=== PATIENT | male | born 1975 | race Two or more races ===

== ENCOUNTER 2020-03-26 11:37 | Outpatient (REF) | payer OTHER, SELFPAY ==
[2020-03-26 12:58] LABS: MANUAL DIFF FLAG NO
[2020-03-26 13:04] LABS: Basophils Percent Auto 0.4 % (0-2); Eosinophils Absolute Auto 0.2 X10*3/uL (0.0-0.4); Eosinophils Percent Auto 2.5 % (0-4); Hemoglobin 15.6 g/dl (14.0-18.0); Imm Gran Abs Auto 0.04 X10*3/uL (0.00-0.03); Imm Gran Pct Auto 0.5 % (0.0-0.4); Lymphocytes Absolute Auto 1.6 X10*3/uL (1.2-4.9); Lymphocytes Percent Auto 21.2 % (20-40); Mean Corpuscular HGB Conc 33.2 g/dl (31.0-36.0); Mean Corpuscular Hemoglobin 30.5 pg (27.0-33.0); Mean Platelet Volume 10.5 fL (9.4-12.4); Monocytes Absolute Auto 0.7 X10*3/uL (0.1-1.2); Monocytes Percent Auto 9.2 % (2-11); Neutrophils Percent Auto 66.2 % (45-73); Platelet Count 194 X10*3/uL (160-400); Red Blood Count 5.11 X10*6/uL (4.60-5.80); Red Cell Distribution Width 11.6 % (11.0-16.0); White Blood Count 7.5 X10*3/uL (4.8-10.8)
[2020-03-26 14:02] LABS: Alanine Aminotransferase 27 U/L (0-40); Albumin Level 4.4 g/dL (3.5-5.0); Alkaline Phosphatase 79 U/L (39-117); Anion Gap 9 (12-20); Aspartate Amino Transferase 19 U/L (5-37); Bilirubin Total 0.6 mg/dL (0.0-1.0); Blood Urea Nitrogen 16 mg/dL (9-16); Calcium 8.9 mg/dL (8.4-10.2); Carbon Dioxide 31 mmol/L (22-29); Chloride 103 mmol/L (96-108); Cholesterol 150 mg/dL; Estimated Glomerular Filt Rate 47; Glucose Fasting 88 mg/dL (60-99); HDL Cholesterol 46 mg/dL; LDL Cholesterol Calculated 92 mg/dl; Potassium 4.6 mmol/l (3.3-5.1); Sodium 138 mmol/L (135-145); Total Protein 6.6 g/dL (6.5-8.0); Triglycerides 60 mg/dL
[2020-03-26 14:10] LABS: Estimated Average Glucose 111 mg/dL; Hemoglobin A1c % 5.5 %
[2020-03-26 14:14] LABS: TSH reflex Free T4 1.12 mIU/mL (0.32-4.0); Vitamin D 25-OH Total 28.1 ng/mL (>30)
== END 2020-03-26 11:38 | disposition home or self-care (01) ==
LOC: HO.LAB 11:37
PROVIDERS: PCP Internal Medicine; Visit Provider Internal Medicine
DX: I10 Essential (primary) hypertension (principal); E78.5 Hyperlipidemia, unspecified; R73.01 Impaired fasting glucose; G43.909 Migraine, unspecified, not intractable, without status migrainosus; E55.9 Vitamin D deficiency, unspecified; E04.1 Nontoxic single thyroid nodule
CPT/HCPCS: 36415; 80053; 80061; 82306; 83036; 84443; 85025

== ENCOUNTER 2020-05-20 11:31 | Outpatient (REF) | payer OTHER, SELFPAY | END 2020-05-20 11:32 | disposition home or self-care (01) | LOC: HO.LAB 11:31 | PROVIDERS: Visit Provider Internal Medicine | DX: Z20.822 Contact with and (suspected) exposure to COVID-19 (principal) | CPT/HCPCS: 36415; C9803; U0003; U0005 ==

== ENCOUNTER 2020-05-30 12:54 | Outpatient (REF) | payer OTHER, SELFPAY | END 2020-05-30 12:55 | disposition home or self-care (01) | LOC: HO.LAB 12:54 | PROVIDERS: Visit Provider Internal Medicine | DX: Z20.822 Contact with and (suspected) exposure to COVID-19 (principal) | CPT/HCPCS: 36415; C9803; U0003; U0005 ==

== ENCOUNTER 2020-06-16 13:10 | Outpatient (REF) | payer OTHER, SELFPAY ==
[2020-06-16 14:51] LABS: MANUAL DIFF FLAG NO
[2020-06-16 15:03] LABS: Basophils Percent Auto 0.4 % (0-2); Eosinophils Absolute Auto 0.1 X10*3/uL (0.0-0.4); Eosinophils Percent Auto 1.7 % (0-4); Hematocrit 45.6 % (42-52); Hemoglobin 15.4 g/dl (14.0-18.0); Imm Gran Abs Auto 0.05 X10*3/uL (0.00-0.03); Imm Gran Pct Auto 0.6 % (0.0-0.4); Lymphocytes Absolute Auto 1.4 X10*3/uL (1.2-4.9); Mean Corpuscular HGB Conc 33.8 g/dl (31.0-36.0); Mean Corpuscular Hemoglobin 30.9 pg (27.0-33.0); Mean Corpuscular Volume 91.4 fL (80-98); Mean Platelet Volume 10.5 fL (9.4-12.4); Monocytes Absolute Auto 0.8 X10*3/uL (0.1-1.2); Monocytes Percent Auto 9.7 % (2-11); Neutrophils Absolute Auto 5.8 X10*3/uL (2.0-8.3); Neutrophils Percent Auto 70.6 % (45-73); Platelet Count 219 X10*3/uL (160-400); Red Blood Count 4.99 X10*6/uL (4.60-5.80); Red Cell Distribution Width 11.9 % (11.0-16.0); White Blood Count 8.3 X10*3/uL (4.8-10.8)
[2020-06-16 15:16] LABS: Glucose Urine UA NEG (NEG); Leukocyte Esterase Urine NEG (NEG); Nitrite Urine NEG (NEG); Specific Gravity - Urine 1.025 (1.005-1.025); Urine Blood NEG (NEG); Urine Ketones NEG (NEG); Urine Protein NEG (NEG-TRACE)
[2020-06-16 15:20] LABS: Appearance Urine CLEAR; Color Urine YELLOW
[2020-06-16 15:35] LABS: Alanine Aminotransferase 18 U/L (0-40); Albumin Level 4.4 g/dL (3.5-5.0); Alkaline Phosphatase 95 U/L (39-117); Anion Gap 14 (12-20); Aspartate Amino Transferase 16 U/L (5-37); Bilirubin Total 0.6 mg/dL (0.0-1.0); Blood Urea Nitrogen 12 mg/dL (9-16); Carbon Dioxide 28 mmol/L (22-29); Chloride 103 mmol/L (96-108); Cholesterol 162 mg/dL; Estimated Glomerular Filt Rate > 60; Glucose Fasting 97 mg/dL (60-99); HDL Cholesterol 54 mg/dL; LDL Cholesterol Calculated 90 mg/dl; Sodium 140 mmol/L (135-145); Total Protein 7.1 g/dL (6.5-8.0); Triglycerides 94 mg/dL
[2020-06-16 15:59] LABS: Free T4 (Free Thyroxine) 0.84 ng/dL (0.71-1.85); Thyroid Stimulating Hormone 1.07 uIU/mL (0.32-4.0); Vitamin D 25-OH Total 32.9 ng/mL (>30)
== END 2020-06-16 13:11 | disposition home or self-care (01) ==
LOC: HO.LAB 13:10
PROVIDERS: PCP Internal Medicine; Visit Provider Internal Medicine
DX: I10 Essential (primary) hypertension (principal); E78.00 Pure hypercholesterolemia, unspecified; E04.1 Nontoxic single thyroid nodule; E66.3 Overweight; E55.9 Vitamin D deficiency, unspecified
CPT/HCPCS: 36415; 80053; 80061; 81003; 82306; 84439; 84443; 85025

== ENCOUNTER 2020-09-01 09:30 | Outpatient (REF) | payer OTHER, SELFPAY ==
[2020-09-01 10:32] LABS: MANUAL DIFF FLAG NO
[2020-09-01 10:39] LABS: Basophils Percent Auto 0.3 % (0-2); Eosinophils Absolute Auto 0.1 X10*3/uL (0.0-0.4); Eosinophils Percent Auto 1.4 % (0-4); Hemoglobin 16.3 g/dl (14.0-18.0); Imm Gran Abs Auto 0.07 X10*3/uL (0.00-0.03); Imm Gran Pct Auto 0.8 % (0.0-0.4); Lymphocytes Absolute Auto 1.6 X10*3/uL (1.2-4.9); Lymphocytes Percent Auto 17.8 % (20-40); Mean Corpuscular HGB Conc 33.3 g/dl (31.0-36.0); Mean Corpuscular Hemoglobin 30.5 pg (27.0-33.0); Mean Corpuscular Volume 91.8 fL (80-98); Mean Platelet Volume 10.3 fL (9.4-12.4); Monocytes Absolute Auto 0.9 X10*3/uL (0.1-1.2); Monocytes Percent Auto 9.2 % (2-11); Neutrophils Absolute Auto 6.5 X10*3/uL (2.0-8.3); Neutrophils Percent Auto 70.5 % (45-73); Platelet Count 227 X10*3/uL (160-400); Red Blood Count 5.34 X10*6/uL (4.60-5.80); Red Cell Distribution Width 12.1 % (11.0-16.0); White Blood Count 9.2 X10*3/uL (4.8-10.8)
[2020-09-01 10:54] LABS: Estimated Average Glucose 108 mg/dL; Hemoglobin A1c % 5.4 %
[2020-09-01 11:10] LABS: Alanine Aminotransferase 54 U/L (0-40); Alkaline Phosphatase 102 U/L (39-117); Anion Gap 13 (12-20); Aspartate Amino Transferase 32 U/L (5-37); Blood Urea Nitrogen 19 mg/dL (9-16); Carbon Dioxide 30 mmol/L (22-29); Chloride 101 mmol/L (96-108); Cholesterol 181 mg/dL; Estimated Glomerular Filt Rate 48; Glucose Fasting 101 mg/dL (60-99); HDL Cholesterol 55 mg/dL; LDL Cholesterol Calculated 111 mg/dl; Potassium 4.9 mmol/L (3.3-5.1); Sodium 139 mmol/L (135-145); Total Protein 7.7 g/dL (6.5-8.0); Triglycerides 78 mg/dL
[2020-09-01 11:24] LABS: Erythrocyte Sedimentation Rate 4 MM/HR (0-15)
[2020-09-01 11:35] LABS: Free T4 (Free Thyroxine) 0.97 ng/dL (0.71-1.85); Prostate Specific Antigen 0.27 ng/mL (<0.05-4.0); Thyroid Stimulating Hormone 1.61 uIU/mL (0.32-4.0); Vitamin D 25-OH Total 31.8 ng/mL (>30)
[2020-09-01 14:14] LABS: Appearance Urine CLEAR; Color Urine YELLOW; Glucose Urine UA NEG (NEG); Leukocyte Esterase Urine NEG (NEG); Nitrite Urine NEG (NEG); Specific Gravity - Urine 1.025 (1.005-1.025); Urine Blood NEG (NEG); Urine Ketones NEG (NEG); Urine Protein NEG (NEG-TRACE)
== END 2020-09-01 09:31 | disposition home or self-care (01) ==
LOC: HO.LAB 09:30
PROVIDERS: PCP Internal Medicine; Visit Provider Internal Medicine
DX: I10 Essential (primary) hypertension (principal); G43.909 Migraine, unspecified, not intractable, without status migrainosus; E78.00 Pure hypercholesterolemia, unspecified; R73.01 Impaired fasting glucose; M51.36 Other intervertebral disc degeneration, lumbar region; G56.03 Carpal tunnel syndrome, bilateral upper limbs; E04.1 Nontoxic single thyroid nodule; E66.3 Overweight; N40.0 Benign prostatic hyperplasia without lower urinary tract symptoms; E55.9 Vitamin D deficiency, unspecified
CPT/HCPCS: 36415; 80053; 80061; 81003; 82306; 83036; 84153; 84439; 84443; 85025; 85652

== ENCOUNTER 2020-09-19 11:31 | Outpatient (REF) | payer OTHER, SELFPAY ==
[2020-09-19 12:41] LABS: MANUAL DIFF FLAG NO
[2020-09-19 12:57] LABS: Basophils Percent Auto 0.5 % (0-2); Eosinophils Absolute Auto 0.1 X10*3/uL (0.0-0.4); Eosinophils Percent Auto 1.7 % (0-4); Hematocrit 43.4 % (42-52); Hemoglobin 14.5 g/dl (14.0-18.0); Imm Gran Abs Auto 0.07 X10*3/uL (0.00-0.03); Imm Gran Pct Auto 1.1 % (0.0-0.4); Lymphocytes Absolute Auto 0.9 X10*3/uL (1.2-4.9); Mean Corpuscular HGB Conc 33.4 g/dl (31.0-36.0); Mean Corpuscular Hemoglobin 30.8 pg (27.0-33.0); Mean Corpuscular Volume 92.1 fL (80-98); Mean Platelet Volume 9.6 fL (9.4-12.4); Monocytes Absolute Auto 0.7 X10*3/uL (0.1-1.2); Monocytes Percent Auto 9.9 % (2-11); Neutrophils Absolute Auto 4.8 X10*3/uL (2.0-8.3); Neutrophils Percent Auto 72.8 % (45-73); Platelet Count 230 X10*3/uL (160-400); Red Blood Count 4.71 X10*6/uL (4.60-5.80); Red Cell Distribution Width 11.5 % (11.0-16.0); White Blood Count 6.6 X10*3/uL (4.8-10.8)
[2020-09-19 12:59] LABS: Glucose Urine UA NEG (NEG); Leukocyte Esterase Urine NEG (NEG); Nitrite Urine NEG (NEG); Specific Gravity - Urine 1.025 (1.005-1.025); Urine Blood TRACE (NEG); Urine Ketones NEG (NEG); Urine Protein NEG (NEG-TRACE)
[2020-09-19 13:08] LABS: Appearance Urine CLEAR; Color Urine YELLOW
[2020-09-19 13:13] LABS: Alanine Aminotransferase 19 U/L (0-40); Albumin Level 4.3 g/dL (3.5-5.0); Alkaline Phosphatase 93 U/L (39-117); Anion Gap 11 (12-20); Aspartate Amino Transferase 17 U/L (5-37); Bilirubin Total 0.5 mg/dL (0.0-1.0); Blood Urea Nitrogen 19 mg/dL (9-16); Calcium 9.4 mg/dL (8.4-10.2); Carbon Dioxide 30 mmol/L (22-29); Chloride 103 mmol/L (96-108); Cholesterol 154 mg/dL; Estimated Glomerular Filt Rate 56; Glucose Fasting 84 mg/dL (60-99); HDL Cholesterol 51 mg/dL; LDL Cholesterol Calculated 89 mg/dl; Potassium 5.3 mmol/L (3.3-5.1); Sodium 139 mmol/L (135-145); Total Protein 6.8 g/dL (6.5-8.0); Triglycerides 74 mg/dL
[2020-09-19 13:15] LABS: Estimated Average Glucose 111 mg/dL; Hemoglobin A1c % 5.5 %
[2020-09-19 13:36] LABS: Free T4 (Free Thyroxine) 0.86 ng/dL (0.71-1.85); Prostate Specific Antigen 0.35 ng/mL (<0.05-4.0); Thyroid Stimulating Hormone 1.01 uIU/mL (0.32-4.0); Vitamin D 25-OH Total 33.6 ng/mL (>30)
[2020-09-19 14:12] LABS: RBC Urine 0-2 /HPF (0); Squamous Epithelial Cell Urine TRACE /LPF; WBC Urine 0-2 /HPF (0-4)
== END 2020-09-19 11:32 | disposition home or self-care (01) ==
LOC: HO.LAB 11:31
PROVIDERS: PCP Internal Medicine; Visit Provider Internal Medicine
DX: I10 Essential (primary) hypertension (principal); N28.9 Disorder of kidney and ureter, unspecified; E78.00 Pure hypercholesterolemia, unspecified; R73.01 Impaired fasting glucose; E04.1 Nontoxic single thyroid nodule; N40.0 Benign prostatic hyperplasia without lower urinary tract symptoms; E66.3 Overweight; E55.9 Vitamin D deficiency, unspecified; Z12.5 Encounter for screening for malignant neoplasm of prostate
CPT/HCPCS: 36415; 80053; 80061; 81001; 81003; 82306; 83036; 84153; 84439; 84443; 85025

== ENCOUNTER 2020-11-07 12:57 | Emergency (ER) | payer OTHER, SELFPAY ==
--- NOTE | ~2020-11-07 | CT_ITS ---
EXAMINATION: CT ABDOMEN AND PELVIS WITHOUT CONTRAST CLINICAL INFORMATION: Right lower quadrant abdominal pain. COMPARISON: Noncontrast CT of the abdomen on 12/10/2010 TECHNIQUE: Multidetector volumetric imaging was performed from the superior aspect of the liver through the pubic symphysis. Sagittal and coronal reformatted images were obtained on the technologist's workstation. This CT examination was performed using dose optimization techniques as appropriate, variously including the following: *Automated exposure control *Adjustment of mA and/or kV according to patient size (this includes techniques or standardized protocols for targeted exams where dose is matched to indication/reason for exam; i.e. extremities or head) *Use of iterative reconstruction technique DLP: 441 mGy-cm FINDINGS: LUNG BASES: Minimal atelectasis lung bases. LIVER, GALLBLADDER, AND BILIARY TREE: The liver is normal in size and homogeneous in attenuation. Scattered throughout the liver are small hepatic hypodensities most of which are too small to definitively characterize on CT. The largest hypodensity measures 1.5 cm within segment 5/4 B and measures fluid attenuation. Overall, the size and number of these hepatic hypodensities has increased from 2011. The gallbladder is unremarkable with no evidence of radiopaque gallstones, gallbladder wall thickening, or obvious pericholecystic inflammatory changes. PANCREAS: Unremarkable. SPLEEN: Unremarkable. ADRENAL GLANDS: Unremarkable. KIDNEYS AND URETERS: Right kidney: There is no right perinephric abnormality. No radiopaque right renal stones. No right hydronephrosis appreciated. Along the lateral mid pole of the right kidney (series 3 image 27) is a partially exophytic 2.8 cm low attenuating lesion. This is increased in size from 2011 when it measured approximately 1 cm on that nonenhanced study. An additional, ill-defined hypodensity is seen along the medial lower pole measuring up to 1.6 cm on image 30/89. Left kidney: There is no left-sided hydronephrosis or left renal stones identified. No left perinephric abnormality identified. BLADDER: Unremarkable. GASTROINTESTINAL TRACT: Decompressed stomach. Normal caliber small bowel loops. Along the anterior mesenteric side of the ascending colon on series 3 image 40/89 is increased soft tissue stranding around a fat density structure which measures approximately 1.5 x 0.8 cm. There may be very minimal wall thickening of the ascending colon adjacent to the inflammation however the inflammation is primarily centered around this fat density focus. The appendix is not definitely visualized. The descending and sigmoid colon are within normal limits. ABDOMINAL WALL: Small bilateral fat-containing inguinal hernias. LYMPH NODES: Normal. VASCULAR: Unremarkable. PELVIC VISCERA: Unremarkable. OSSEOUS STRUCTURES: A 9 mm sclerotic focus within the right posterior iliac bone is favored to reflect a small bone island and is unchanged from 2011. CT/CT abdomen pelvis wo con IMPRESSION: 1. Increased soft tissue stranding around a fat density structure along the antimesenteric side of the ascending colon most consistent with epiploic appendagitis. No focal fluid collections. The appendix is not definitely visualized. 2. A 2.8 cm low attenuating lesion arising from the midpole of the right kidney laterally has increased in size from 2011. Consider nonurgent renal ultrasound for further evaluation when clinically appropriate. 3. No evidence of hydronephrosis, perinephric inflammation or nephrolithiasis.
[2020-11-07 15:19] VITALS: BP 135/73; PULSE 79; RESP 16; TEMP 37.2; O2SAT 97; BMI 26.6
[2020-11-07 15:59] LABS: MANUAL DIFF FLAG NO
--- NOTE | 2020-11-07 16:00 | ED.ABDPAIN ---
HPI - Abdominal Pain General Chief Complaint: Abdominal Pain <CINDY Rasmussen - Last Filed: 11/07/20 16:03> Stated Complaint: Abdominal pain <CINDY Rasmussen Last Filed: 11/07/20 16:03> Time Seen by Provider: 11/07/20 15:37 <CINDY Rasmussen - Last Filed: 11/07/20 16:03> Source: patient <Ruma Tian DO - Last Filed: 11/07/20 21:18> Mode of arrival: ambulatory <Ruma Tian DO - Last Filed: 11/07/20 21:18> Limitations: no limitations <Ruma Tian DO - Last Filed: 11/07/20 21:18> History of Present Illness MD elicited complaint: abdominal pain <Ruma Tian DO - Last Filed: 11/07/20 21:18> Pertinent past history: kidney stones <Ruma Tian DO - Last Filed: 11/07/20 21:18> Onset (ago): day(s) (4) <Ruma Tian DO - Last Filed: 11/07/20 21:18> Pain Consistency: constant <Ruma Tian DO - Last Filed: 11/07/20 21:18> Location: RLQ and R flank <Ruma Tian DO - Last Filed: 11/07/20 21:18> Severity: moderate <Ruma Tian DO - Last Filed: 11/07/20 21:18> Quality: aching and dull <Ruma Tian DO - Last Filed: 11/07/20 21:18> Radiation: none <Ruma Tian DO - Last Filed: 11/07/20 21:18> Migration to: no migration <Ruma Tian DO - Last Filed: 11/07/20 21:18> Exacerbating factors: movement <Ruma Tian DO - Last Filed: 11/07/20 21:18> Relieving factors: nothing <Ruma Tian DO - Last Filed: 11/07/20 21:18> Associated symptoms: diarrhea <Ruma iTan DO - Last Filed: 11/07/20 21:18> Related Data Home Medications: Home Medications Medication Instructions Recorded Confirmed oxycodone 10 mg tablet 10 mg PO Q6H PRN 03/06/20 11/07/20 bupropion HCl 150 mg 24 hr tablet, 150 mg PO QAM 04/01/20 11/07/20 extended release ljzpajehrj-okelmatguspve-vrfwwwii 1 cap PO ONCE PRN cap 04/01/20 11/07/20 50 mg-325 mg-40 mg capsule clonazepam 0.5 mg tablet 0.25 mg PO BID 04/01/20 11/07/20 quetiapine 100 mg tablet 100 mg PO BEDTIME 04/01/20 11/07/20 tadalafil 20 mg tablet 20 mg PO DAILY PRN 04/01/20 11/07/20 topiramate 25 mg tablet 25 mg PO DAILY 04/01/20 11/07/20 zolpidem 10 mg tablet 10 mg PO BEDTIME PRN 04/01/20 11/07/20 Previous Rx's Medication Instructions Recorded cholecalciferol (vitamin D3) 25 25 mcg PO DAILY #30 cap 02/11/20 mcg (1,000 unit) capsule clindamycin phosphate 1 % topical 1 appl TOPICAL BID PRN 10 Days #30 06/16/20 gel g hydrocortisone 1 % topical cream 1 appl TOPICAL TID PRN #28.4 g 06/16/20 lisinopril 10 mg tablet 10 mg PO DAILY #30 tab 07/19/20 atorvastatin 10 mg tablet 10 mg PO DAILY #30 tab 10/29/20 oxycodone 10 mg tablet 10 mg PO Q6H PRN 28 Days #112 tab 10/31/20 cyclobenzaprine 10 mg PO TID PRN #14 tab 11/07/20 <CINDY Rasmussen - Last Filed: 11/07/20 16:03> Allergies/Adverse Reactions: Allergies Allergy/AdvReac Type Severity Reaction Status Date / Time gabapentin Allergy Unknown trouble Verified 11/07/20 12:23 swallowing, swelling <CINDY Rasmussen - Last Filed: 11/07/20 16:03> Review of Systems Review of Systems Constitutional : No Weight loss, No Fever, No Chills ENT/Mouth : No sore throat, No Rhinorrhea Eyes: No Swelling, No Redness Cardiovascular : No Chest Pain, No SOB, NoEdema Respiratory : No Cough, No Sputum, No Wheezing Gastrointestinal :no Nausea, no Vomiting, positive Diarrhea, positive abdominal Pain, No Hematochezia, No Melena Genitourinary : No Dysuria, No Urinary Frequency, No Hematuria, No Urgency Musculoskeletal : No joint pain, No Myalgias, No Joint Swelling Skin : No Skin Lesions, No rash Neuro : No Weakness, No Numbness, No Dizziness, No Headache Psych : No Anxiety/Panic, No Depression Heme/Lymph: No Bruising, No Lymphadenopathy Endocrine : No Polyuria, No Polydipsia All other systems reviewed and are negative. <Ruma Tian DO - Last Filed: 11/07/20 21:18> Physical Exam Vital Signs: Vital Signs: Last Vital Signs Temp 98.9 F 11/07/20 15:19 Pulse 62 11/07/20 19:53 Resp 16 11/07/20 19:53 BP 144/77 H 11/07/20 19:53 Pulse Ox 100 11/07/20 19:53 Body Mass Index 26.6 <CINDY Rasmussen - Last Filed: 11/07/20 16:03> Vital Signs: Last Vital Signs Temp 98.9 F 11/07/20 15:19 Pulse 62 11/07/20 19:53 Resp 16 11/07/20 19:53 BP 144/77 H 11/07/20 19:53 Pulse Ox 100 11/07/20 19:53 Body Mass Index 26.6 <Ruma Tian DO - Last Filed: 11/07/20 21:18> Appearance: Alert. Oriented X3. No acute distress. Eyes: Pupils equal, round and reactive to light. ENT: Pharynx normal. Neck: Normal inspection. Neck supple. CVS: Normal heart rate and rhythm. Pulses normal. Respiratory: No respiratory distress. Breath sounds normal. Abdomen: Soft and mild RLQ ttp no rebound or guarding Skin: Skin warm and dry. Normal skin color. Normal skin turgor. Extremities: No lower extremity edema. No calf ttp Neuro: Oriented X 3. No motor deficit. No sensory deficit. <Ruma Tian DO - Last Filed: 11/07/20 21:18> Course Course Course Narrative: 16pm - 45-year-old male presenting to the ED c complaints of right flank/right lower quadrant abdominal pain for the past 4 days with associated diarrhea. At this time patient is stable and can go back to the waiting room to wait for further evaluation treatment into the emergency department will obtain labs and UA. <CINDY Rasmussen - Last Filed: 11/07/20 16:03> can be DC home with epiploic appendagitis tx, Cr at baseline <Ruma Tian DO - Last Filed: 11/07/20 21:18> MDM - Abdominal Pain MDM Narrative Medical decision making narrative: 45 yo male with hx of anxiety, depression migraines here with RLQ pain at this time will need labs, CT abdomen to evaluate appendix as well as renal colic, dispo per results and findings. <Ruma Tian DO - Last Filed: 11/07/20 21:18> Lab Data Result diagrams: : 11/07/20 15:53 11/07/20 15:53 <CINDY Rasmussen - Last Filed: 11/07/20 16:03> Labs: Lab Results 11/07/20 11/07/20 11/07/20 Range/Units 15:53 15:53 15:53 WBC 10.7 (4.8-10.8) X10*3/uL RBC 5.02 (4.60-5.80) X10*6/uL Hgb 15.5 (14.0-18.0) g/dl Hct 45.2 (42-52) % MCV 90.0 (80-98) fL MCH 30.9 (27.0-33.0) pg MCHC 34.3 (31.0-36.0) g/dl RDW 11.8 (11.0-16.0) % Plt Count 192 (160-400) X10*3/uL MPV 10.1 (9.4-12.4) fL Immature Gran % (Auto) 0.7 H (0.0-0.4) % Neut % (Auto) 78.7 H (45-73) % Lymph % (Auto) 12.4 L (20-40) % [place] % (Auto) 6.5 (2-11) % Eos % (Auto) 1.4 (0-4) % Baso % (Auto) 0.3 (0-2) % Lymph # (Auto) 1.3 (1.2-4.9) X10*3/uL [place] # (Auto) 0.7 (0.1-1.2) X10*3/uL Eos # (Auto) 0.2 (0.0-0.4) X10*3/uL Baso # (Auto) 0.0 (0.0-0.2) X10*3/uL Abs Immat Gran (auto) 0.07 H (0.00-0.03) X10*3/uL Absolute Neuts (auto) 8.4 H (2.0-8.3) X10*3/uL Absolute Nucleated RBC 0.000 (0.0-0.012) X10*3/uL Nucleated RBC % (auto) 0.0 (0.0-0.2) /100WBC Sodium 139 (135-145) mmol/L Potassium 4.4 (3.3-5.1) mmol/L Chloride 103 (96-108) mmol/L Carbon Dioxide 29 (22-29) mmol/L Anion Gap 11 L (12-20) BUN 13 (9-16) mg/dL Creatinine 1.46 H (0.5-1.4) mg/dL Estim Creat Clear Calc 63.8 Estimated GFR 52 Random Glucose 127 H (60-115) mg/dL Calcium 9.7 (8.4-10.2) mg/dL Magnesium 2.2 (1.6-2.6) mg/dL Total Bilirubin 0.6 (0.0-1.0) mg/dL AST 27 D (5-37) U/L ALT 61 H (0-40) U/L Alkaline Phosphatase 98 (39-117) U/L Total Protein 7.2 (6.5-8.0) g/dL Albumin 4.7 (3.5-5.0) g/dL Lipase 19 (8-78) U/L Urine Color Urine Appearance Urine pH (5.0-8.0) Ur Specific [place] (1.005-1.025) Urine Protein (NEG-TRACE) MG/DL Urine Glucose (UA) (NEG) MG/DL Urine Ketones (NEG) MG/DL Urine Blood (NEG) Urine Nitrite (NEG) Ur Leukocyte Esterase (NEG) Urine RBC (0) /HPF Urine WBC (0-4) /HPF Ur Squamous Epith Cells /LPF Urine Bacteria /LPF 11/07/20 Range/Units 17:38 WBC (4.8-10.8) X10*3/uL RBC (4.60-5.80) X10*6/uL Hgb (14.0-18.0) g/dl Hct (42-52) % MCV (80-98) fL MCH (27.0-33.0) pg MCHC (31.0-36.0) g/dl RDW (11.0-16.0) % Plt Count (160-400) X10*3/uL MPV (9.4-12.4) fL Immature Gran % (Auto) (0.0-0.4) % Neut % (Auto) (45-73) % Lymph % (Auto) (20-40) % [place] % (Auto) (2-11) % Eos % (Auto) (0-4) % Baso % (Auto) (0-2) % Lymph # (Auto) (1.2-4.9) X10*3/uL [place] # (Auto) (0.1-1.2) X10*3/uL Eos # (Auto) (0.0-0.4) X10*3/uL Baso # (Auto) (0.0-0.2) X10*3/uL Abs Immat Gran (auto) (0.00-0.03) X10*3/uL Absolute Neuts (auto) (2.0-8.3) X10*3/uL Absolute Nucleated RBC (0.0-0.012) X10*3/uL Nucleated RBC % (auto) (0.0-0.2) /100WBC Sodium (135-145) mmol/L Potassium (3.3-5.1) mmol/L Chloride (96-108) mmol/L Carbon Dioxide (22-29) mmol/L Anion Gap (12-20) BUN (9-16) mg/dL Creatinine (0.5-1.4) mg/dL Estim Creat Clear Calc Estimated GFR Random Glucose (60-115) mg/dL Calcium (8.4-10.2) mg/dL Magnesium (1.6-2.6) mg/dL Total Bilirubin (0.0-1.0) mg/dL AST (5-37) U/L ALT (0-40) U/L Alkaline Phosphatase (39-117) U/L Total Protein (6.5-8.0) g/dL Albumin (3.5-5.0) g/dL Lipase (8-78) U/L Urine Color YELLOW Urine Appearance CLEAR Urine pH 6.5 (5.0-8.0) Ur Specific [place] <= 1.005 (1.005-1.025) Urine Protein NEG (NEG-TRACE) MG/DL Urine Glucose (UA) NEG (NEG) MG/DL Urine Ketones NEG (NEG) MG/DL Urine Blood NEG (NEG) Urine Nitrite NEG (NEG) Ur Leukocyte Esterase NEG (NEG) Urine RBC 0 (0) /HPF Urine WBC 0 (0-4) /HPF Ur Squamous Epith Cells TRACE /LPF Urine Bacteria NONE /LPF <CINDY Rasmussen - Last Filed: 11/07/20 16:03> Lab Results 11/07/20 11/07/20 11/07/20 Range/Units 15:53 15:53 15:53 WBC 10.7 (4.8-10.8) X10*3/uL RBC 5.02 (4.60-5.80) X10*6/uL Hgb 15.5 (14.0-18.0) g/dl Hct 45.2 (42-52) % MCV 90.0 (80-98) fL MCH 30.9 (27.0-33.0) pg MCHC 34.3 (31.0-36.0) g/dl RDW 11.8 (11.0-16.0) % Plt Count 192 (160-400) X10*3/uL MPV 10.1 (9.4-12.4) fL Immature Gran % (Auto) 0.7 H (0.0-0.4) % Neut % (Auto) 78.7 H (45-73) % Lymph % (Auto) 12.4 L (20-40) % [place] % (Auto) 6.5 (2-11) % Eos % (Auto) 1.4 (0-4) % Baso % (Auto) 0.3 (0-2) % Lymph # (Auto) 1.3 (1.2-4.9) X10*3/uL [place] # (Auto) 0.7 (0.1-1.2) X10*3/uL Eos # (Auto) 0.2 (0.0-0.4) X10*3/uL Baso # (Auto) 0.0 (0.0-0.2) X10*3/uL Abs Immat Gran (auto) 0.07 H (0.00-0.03) X10*3/uL Absolute Neuts (auto) 8.4 H (2.0-8.3) X10*3/uL Absolute Nucleated RBC 0.000 (0.0-0.012) X10*3/uL Nucleated RBC % (auto) 0.0 (0.0-0.2) /100WBC Sodium 139 (135-145) mmol/L Potassium 4.4 (3.3-5.1) mmol/L Chloride 103 (96-108) mmol/L Carbon Dioxide 29 (22-29) mmol/L Anion Gap 11 L (12-20) BUN 13 (9-16) mg/dL Creatinine 1.46 H (0.5-1.4) mg/dL Estim Creat Clear Calc 63.8 Estimated GFR 52 Random Glucose 127 H (60-115) mg/dL Calcium 9.7 (8.4-10.2) mg/dL Magnesium 2.2 (1.6-2.6) mg/dL Total Bilirubin 0.6 (0.0-1.0) mg/dL AST 27 D (5-37) U/L ALT 61 H (0-40) U/L Alkaline Phosphatase 98 (39-117) U/L Total Protein 7.2 (6.5-8.0) g/dL Albumin 4.7 (3.5-5.0) g/dL Lipase 19 (8-78) U/L Urine Color Urine Appearance Urine pH (5.0-8.0) Ur Specific [place] (1.005-1.025) Urine Protein (NEG-TRACE) MG/DL Urine Glucose (UA) (NEG) MG/DL Urine Ketones (NEG) MG/DL Urine Blood (NEG) Urine Nitrite (NEG) Ur Leukocyte Esterase (NEG) Urine RBC (0) /HPF Urine WBC (0-4) /HPF Ur Squamous Epith Cells /LPF Urine Bacteria /LPF 11/07/20 Range/Units 17:38 WBC (4.8-10.8) X10*3/uL RBC (4.60-5.80) X10*6/uL Hgb (14.0-18.0) g/dl Hct (42-52) % MCV (80-98) fL MCH (27.0-33.0) pg MCHC (31.0-36.0) g/dl RDW (11.0-16.0) % Plt Count (160-400) X10*3/uL MPV (9.4-12.4) fL Immature Gran % (Auto) (0.0-0.4) % Neut % (Auto) (45-73) % Lymph % (Auto) (20-40) % [place] % (Auto) (2-11) % Eos % (Auto) (0-4) % Baso % (Auto) (0-2) % Lymph # (Auto) (1.2-4.9) X10*3/uL [place] # (Auto) (0.1-1.2) X10*3/uL Eos # (Auto) (0.0-0.4) X10*3/uL Baso # (Auto) (0.0-0.2) X10*3/uL Abs Immat Gran (auto) (0.00-0.03) X10*3/uL Absolute Neuts (auto) (2.0-8.3) X10*3/uL Absolute Nucleated RBC (0.0-0.012) X10*3/uL Nucleated RBC % (auto) (0.0-0.2) /100WBC Sodium (135-145) mmol/L Potassium (3.3-5.1) mmol/L Chloride (96-108) mmol/L Carbon Dioxide (22-29) mmol/L Anion Gap (12-20) BUN (9-16) mg/dL Creatinine (0.5-1.4) mg/dL Estim Creat Clear Calc Estimated GFR Random Glucose (60-115) mg/dL Calcium (8.4-10.2) mg/dL Magnesium (1.6-2.6) mg/dL Total Bilirubin (0.0-1.0) mg/dL AST (5-37) U/L ALT (0-40) U/L Alkaline Phosphatase (39-117) U/L Total Protein (6.5-8.0) g/dL Albumin (3.5-5.0) g/dL Lipase (8-78) U/L Urine Color YELLOW Urine Appearance CLEAR Urine pH 6.5 (5.0-8.0) Ur Specific [place] <= 1.005 (1.005-1.025) Urine Protein NEG (NEG-TRACE) MG/DL Urine Glucose (UA) NEG (NEG) MG/DL Urine Ketones NEG (NEG) MG/DL Urine Blood NEG (NEG) Urine Nitrite NEG (NEG) Ur Leukocyte Esterase NEG (NEG) Urine RBC 0 (0) /HPF Urine WBC 0 (0-4) /HPF Ur Squamous Epith Cells TRACE /LPF Urine Bacteria NONE /LPF <Ruma Tian DO - Last Filed: 11/07/20 21:18> Discharge Plan Discharge Clinical Impression: Epiploic appendagitis <CINDY Rasmussen - Last Filed: 11/07/20 16:03> Patient Disposition: Home, Self-Care <CINDY Rasmussen - Last Filed: 11/07/20 16:03> Additional Instructions: return to ED for any worsening symptoms or concerns 1. Increased soft tissue stranding around a fat density structure along the antimesenteric side of the ascending colon most consistent with epiploic appendagitis. No focal fluid collections. The appendix is not definitely visualized. 2. A 2.8 cm low attenuating lesion arising from the midpole of the right kidney laterally has increased in size from 2010. Consider nonurgent renal ultrasound for further evaluation when clinically appropriate. 3. No evidence of hydronephrosis, perinephric inflammation or nephrolithiasis. OUTPATIENT RENAL ULTRASOUND SHOULD BE DONE <CINDY Rasmussen - Last Filed: 11/07/20 16:03> Prescriptions: New cyclobenzaprine 10 mg tablet 10 mg PO TID PRN (Reason: muscle spasm) Qty: 14 RF: 0 No Action cholecalciferol (vitamin D3) [Vitamin D3] 25 mcg (1,000 unit) capsule 25 mcg PO DAILY Qty: 30 RF: 5 oxycodone 10 mg tablet 10 mg PO Q6H PRNRF: 0 lisinopril 10 mg tablet 10 mg PO DAILY Qty: 30 RF: 6 atorvastatin 10 mg tablet 10 mg PO DAILY Qty: 30 RF: 5 oxycodone 10 mg tablet 10 mg PO Q6H PRN (Reason: pain) 28 Days Qty: 112 RF: 0 tadalafil [Cialis] 20 mg tablet 20 mg PO DAILY PRNRF: 0 clonazepam 0.5 mg tablet 0.25 mg PO BID RF: 0 topiramate 25 mg tablet 25 mg PO DAILY RF: 0 hsnwthluur-pmpjknwbnuhmz-wokl 50-325-40 mg capsule 1 cap PO ONCE PRNRF: 0 zolpidem 10 mg tablet 10 mg PO BEDTIME PRNRF: 0 bupropion HCl 150 mg tablet extended release 24 hr 150 mg PO QAM RF: 0 quetiapine 100 mg tablet 100 mg PO BEDTIME RF: 0 clindamycin phosphate 1 % gel 1 appl topical BID PRN (Reason: infection) 10 Days Qty: 30 RF: 0 hydrocortisone [Anti-Itch (HC)] 1 % cream 1 appl topical TID PRN (Reason: skin irritation) Qty: 28.4 RF: 0 <CINDY Rasmussen - Last Filed: 11/07/20 16:03> Referrals: Desmond Montelongo MD [Primary Care Provider] - 5 days <CINDY Rasmussen - Last Filed: 11/07/20 16:03> Stand Alone Forms: Work/School Release <CINDY Rasmussen - Last Filed: 11/07/20 16:03> [facility] Past Medical History Attestation statement: The following information was validated with the patient. <Ruma Tian DO - Last Filed: 11/07/20 21:18> Medical History: Medical History Anxiety Benign essential hypertension Benign prostatic hyperplasia Bilateral carpal tunnel syndrome Depression Impaired fasting glucose Insomnia Lumbar degenerative disc disease Migraine Overweight (BMI 25.0-29.9) Pure hypercholesterolemia Renal insufficiency Rupture of ligament of wrist Thyroid nodule Vitamin D deficiency <CINDY Rasmussen - Last Filed: 11/07/20 16:03> Surgical History: Surgical History Deficient knowledge of spinal cord stimulator History of bladder surgery History of hemorrhoidectomy History of knee replacement procedure of right knee History of surgery S/P aneurysm repair <CINDY Rasmussen - Last Filed: 11/07/20 16:03> Family History Family History: Family History Father Medical history unknown Mother Diabetes Hypertension <CINDY Rasmussen - Last Filed: 11/07/20 16:03> Social History Social History: Social History Alcohol intake: current Alcohol intake frequency: a few times a month Patient Tobacco Use Status: Never used Tobacco Use of substances other than those prescribed or required for medical reasons: No Advance Directives: No Advance Directives Information Provided: Yes <CINDY Rasmussen - Last Filed: 11/07/20 16:03>
[2020-11-07 16:02] LABS: Basophils Percent Auto 0.3 % (0-2); Eosinophils Absolute Auto 0.2 X10*3/uL (0.0-0.4); Eosinophils Percent Auto 1.4 % (0-4); Hematocrit 45.2 % (42-52); Hemoglobin 15.5 g/dl (14.0-18.0); Imm Gran Abs Auto 0.07 X10*3/uL (0.00-0.03); Imm Gran Pct Auto 0.7 % (0.0-0.4); Lymphocytes Absolute Auto 1.3 X10*3/uL (1.2-4.9); Lymphocytes Percent Auto 12.4 % (20-40); Mean Corpuscular HGB Conc 34.3 g/dl (31.0-36.0); Mean Corpuscular Hemoglobin 30.9 pg (27.0-33.0); Mean Platelet Volume 10.1 fL (9.4-12.4); Monocytes Absolute Auto 0.7 X10*3/uL (0.1-1.2); Monocytes Percent Auto 6.5 % (2-11); Neutrophils Absolute Auto 8.4 X10*3/uL (2.0-8.3); Neutrophils Percent Auto 78.7 % (45-73); Platelet Count 192 X10*3/uL (160-400); Red Blood Count 5.02 X10*6/uL (4.60-5.80); Red Cell Distribution Width 11.8 % (11.0-16.0); White Blood Count 10.7 X10*3/uL (4.8-10.8)
[2020-11-07 16:34] LABS: Alanine Aminotransferase 61 U/L (0-40); Albumin Level 4.7 g/dL (3.5-5.0); Alkaline Phosphatase 98 U/L (39-117); Anion Gap 11 (12-20); Aspartate Amino Transferase 27 U/L (5-37); Bilirubin Total 0.6 mg/dL (0.0-1.0); Blood Urea Nitrogen 13 mg/dL (9-16); Calcium 9.7 mg/dL (8.4-10.2); Carbon Dioxide 29 mmol/L (22-29); Chloride 103 mmol/L (96-108); Creatinine Clr Calc Pharmacy 63.8; Estimated Glomerular Filt Rate 52; Glucose Random 127 mg/dL (60-115); Lipase 19 U/L (8-78); Magnesium 2.2 mg/dL (1.6-2.6); Potassium 4.4 mmol/L (3.3-5.1); Sodium 139 mmol/L (135-145); Total Protein 7.2 g/dL (6.5-8.0)
[2020-11-07 18:12] LABS: Glucose Urine UA NEG (NEG); Leukocyte Esterase Urine NEG (NEG); Nitrite Urine NEG (NEG); PH 6.5 (5.0-8.0); Specific Gravity - Urine <= 1.005 (1.005-1.025); Urine Blood NEG (NEG); Urine Ketones NEG (NEG); Urine Protein NEG (NEG-TRACE)
[2020-11-07 18:17] LABS: Appearance Urine CLEAR; Color Urine YELLOW
[2020-11-07 19:15] LABS: RBC Urine 0 /HPF (0); Squamous Epithelial Cell Urine TRACE /LPF; WBC Urine 0 /HPF (0-4)
[2020-11-07 19:53] VITALS: BP 144/77; PULSE 62; RESP 16; O2SAT 100
--- NOTE | 2020-11-07 19:55 | PC.NURSE ---
REPORT TAKEN FROM FELIPE RN, FIRST CONTACT WITH PT. RETURNED FROM CT, SITTING UP IN BED SKIN WPD. ALL RESULTS RECEIVED. REPORTING CONTINUED RLQ PAIN. DENIES N/V. VSS. AWAITING MD REEVAL, AWARE OF PLAN OF CARE.
== END 2020-11-07 21:46 | disposition home or self-care (01) ==
PROVIDERS: Physician Assistant Medical; Emergency Provider Emergency Medicine; PCP Internal Medicine
DX: K63.89 Other specified diseases of intestine (principal); R19.7 Diarrhea, unspecified; R10.31 Right lower quadrant pain; I10 Essential (primary) hypertension; Z79.899 Other long term (current) drug therapy
CPT/HCPCS: 36415; 74176; 80053; 81001; 83690; 83735; 85025; 99284

== ENCOUNTER 2021-03-10 10:11 | Outpatient (REF) | payer OTHER, SELFPAY ==
[2021-03-10 11:51] LABS: Appearance Urine CLEAR; Color Urine YELLOW; Glucose Urine UA NEG (NEG); Leukocyte Esterase Urine NEG (NEG); Nitrite Urine NEG (NEG); PH 7.5 (5.0-8.0); Specific Gravity - Urine 1.015 (1.005-1.025); Urine Blood NEG (NEG); Urine Ketones NEG (NEG); Urine Protein NEG (NEG-TRACE)
== END 2021-03-10 10:12 | disposition home or self-care (01) ==
LOC: HO.LAB 10:11
PROVIDERS: Visit Provider Internal Medicine
DX: N28.9 Disorder of kidney and ureter, unspecified (principal); I10 Essential (primary) hypertension
CPT/HCPCS: 81003

== ENCOUNTER 2021-03-24 12:13 | Outpatient (REF) | payer OTHER, SELFPAY ==
[2021-03-24 14:09] LABS: COVID-19 Test Negative (Negative)
== END 2021-03-24 12:14 | disposition home or self-care (01) ==
LOC: HO.LAB 12:13
PROVIDERS: PCP Internal Medicine; Visit Provider Internal Medicine
DX: Z20.822 Contact with and (suspected) exposure to COVID-19 (principal)
CPT/HCPCS: 36415; 87635; C9803

== ENCOUNTER 2021-04-02 15:43 | Outpatient (REF) | payer OTHER, SELFPAY ==
--- NOTE | ~2021-04-02 | US_ITS ---
EXAMINATION: US RETROPERITONEAL LIMITED (RENAL ONLY) CLINICAL INFORMATION: Other specified disorders of kidney and ureter. COMPARISON: CT abdomen and pelvis 11/07/2020. TECHNIQUE: Real-time imaging of the kidneys. FINDINGS: RIGHT KIDNEY: 9.5 x 5.9 x 4.7 cm (SAG x AP x TRV). The kidney is normal in size, contour, and echogenicity. Renal cortical thickness is normal. No renal calculi or hydronephrosis. Simple cyst midpole laterally measures 2.2 x 2.2 x 2.9 cm, previously 2.8 cm on the prior CT. LEFT KIDNEY: 10.5 x 5.3 x 4.3 cm (SAG x AP x TRV). The kidney is normal in size, contour, and echogenicity. Renal cortical thickness is normal. No renal calculi or hydronephrosis. Simple cyst at the midpole measures 1.1 x 0.9 x 1.0 cm. US/US renal BI IMPRESSION: Simple renal cysts as described above, no further imaging follow-up recommended.
--- NOTE | ~2021-04-02 | US_ITS ---
EXAMINATION: US THYROID CLINICAL INFORMATION: Nontoxic single thyroid nodule COMPARISON: Ultrasound soft tissue head/neck thyroid dated 03/23/2018 and 05/01/2015 (report only). TECHNIQUE: Linear transducer grayscale and color Doppler examination with attention to the region of the thyroid. FINDINGS: SIZE: Measurements of the thyroid lobes and nodules are given in sagittal, anteroposterior and transverse dimensions respectively. Right Thyroid Lobe: 2.9 x 1.0 x 1.1 cm, volume 1.7 mL. Parenchyma: The gland echotexture is homogeneous. Thyroid vascularity is normal. Left Thyroid Lobe: 2.9 x 1.0 x 1.4 cm, volume 2.2 mL. Parenchyma: The gland echotexture is homogeneous. Thyroid vascularity is normal. Isthmus: 0.38 cm in maximum AP dimension. No focal thyroid nodule is seen. NODES: No lymphadenopathy is seen in the tissue surrounding the thyroid gland. US/US thyroid IMPRESSION: No thyroid nodule identified. Unremarkable sonographic appearance of the thyroid gland.
== END 2021-04-02 15:44 | disposition home or self-care (01) ==
LOC: HO.US 15:43
PROVIDERS: PCP Internal Medicine; Visit Provider Internal Medicine
DX: E04.1 Nontoxic single thyroid nodule (principal); N28.89 Other specified disorders of kidney and ureter
CPT/HCPCS: 76536; 76775

== ENCOUNTER 2021-07-06 08:50 | Outpatient (REF) | payer OTHER, SELFPAY ==
[2021-07-06 09:37] LABS: MANUAL DIFF FLAG NO
[2021-07-06 09:52] LABS: Basophils Percent Auto 0.4 % (0-2); Eosinophils Absolute Auto 0.2 X10*3/uL (0.0-0.4); Eosinophils Percent Auto 1.7 % (0-4); Hematocrit 50.7 % (42.0-52.0); Hemoglobin 16.7 g/dl (14.0-18.0); Imm Gran Abs Auto 0.12 X10*3/uL (0.00-0.03); Imm Gran Pct Auto 1.1 % (0.0-0.4); Lymphocytes Percent Auto 18.2 % (20-40); Mean Corpuscular HGB Conc 32.9 g/dl (31.0-36.0); Mean Corpuscular Hemoglobin 30.3 pg (27.0-33.0); Mean Platelet Volume 9.7 fL (9.4-12.4); Monocytes Percent Auto 8.9 % (2-11); Neutrophils Absolute Auto 7.6 x10*3/uL (2.0-8.3); Neutrophils Percent Auto 69.7 % (45-73); Platelet Count 266 X10*3/uL (160-400); Red Blood Count 5.51 X10*6/uL (4.60-5.80); Red Cell Distribution Width 11.8 % (11.0-16.0); White Blood Count 10.9 X10*3/uL (4.8-10.8)
[2021-07-06 10:23] LABS: Alanine Aminotransferase 24 U/L (0-40); Albumin Level 5.1 g/dL (3.5-5.0); Alkaline Phosphatase 100 U/L (39-117); Anion Gap 12 (12-20); Aspartate Amino Transferase 18 U/L (5-37); Bilirubin Total 0.7 mg/dL (0.0-1.0); Blood Urea Nitrogen 18 mg/dL (9-16); C Reactive Protein 0.47 mg/dL (< or = 0.50); Calcium 10.2 mg/dL (8.4-10.2); Carbon Dioxide 28 mmol/L (22-29); Chloride 102 mmol/L (96-108); Cholesterol 163 mg/dL; Estimated Glomerular Filt Rate 48; Glucose Fasting 99 mg/dL (60-99); HDL Cholesterol 44 mg/dL; LDL Cholesterol Calculated 99 mg/dl; Sodium 137 mmol/L (135-145); Total Protein 7.9 g/dL (6.5-8.0); Triglycerides 101 mg/dL
[2021-07-06 10:30] LABS: Erythrocyte Sedimentation Rate 5 MM/HR (0-15)
[2021-07-06 10:46] LABS: TSH reflex Free T4 1.59 uIU/mL (0.32-4.0); Vitamin D 25-OH Total 32.8 ng/mL (>30)
== END 2021-07-06 08:51 | disposition home or self-care (01) ==
LOC: HO.LAB 08:50
PROVIDERS: PCP Internal Medicine; Visit Provider Internal Medicine
DX: Z00.00 Encounter for general adult medical examination without abnormal findings (principal); M51.36 Other intervertebral disc degeneration, lumbar region; I10 Essential (primary) hypertension; E78.00 Pure hypercholesterolemia, unspecified; E55.9 Vitamin D deficiency, unspecified
CPT/HCPCS: 36415; 80053; 80061; 82306; 84443; 85025; 85652; 86140

== ENCOUNTER 2021-07-07 13:32 | Outpatient (REF) | payer OTHER, SELFPAY ==
[2021-07-07 13:45] LABS: Appearance Urine CLEAR; Color Urine YELLOW; Glucose Urine UA NEG (NEG); Leukocyte Esterase Urine NEG (NEG); Nitrite Urine NEG (NEG); PH 6.5 (5.0-8.0); Urine Blood NEG (NEG); Urine Ketones NEG (NEG); Urine Protein NEG (NEG-TRACE)
== END 2021-07-07 13:33 | disposition home or self-care (01) ==
LOC: HO.LNP 13:32
PROVIDERS: Visit Provider Internal Medicine
DX: Z00.00 Encounter for general adult medical examination without abnormal findings (principal); I10 Essential (primary) hypertension
CPT/HCPCS: 81003

== ENCOUNTER 2021-10-20 11:15 | Outpatient (REF) | payer OTHER, SELFPAY ==
[2021-10-20 11:21] LABS: MANUAL DIFF FLAG NO
[2021-10-20 13:05] LABS: Basophils Percent Auto 0.3 % (0-2); Eosinophils Absolute Auto 0.2 X10*3/uL (0.0-0.4); Eosinophils Percent Auto 2.3 % (0-4); Hematocrit 46.7 % (42.0-52.0); Hemoglobin 15.3 g/dl (14.0-18.0); Imm Gran Abs Auto 0.08 X10*3/uL (0.00-0.03); Imm Gran Pct Auto 0.8 % (0.0-0.4); Lymphocytes Percent Auto 18.9 % (20-40); Mean Corpuscular HGB Conc 32.8 g/dl (31.0-36.0); Mean Corpuscular Hemoglobin 30.1 pg (27.0-33.0); Mean Corpuscular Volume 91.9 fL (80.0-98.0); Mean Platelet Volume 10.5 fL (9.4-12.4); Monocytes Absolute Auto 0.8 X10*3/uL (0.1-1.2); Monocytes Percent Auto 7.3 % (2-11); Neutrophils Absolute Auto 7.4 x10*3/uL (2.0-8.3); Neutrophils Percent Auto 70.4 % (45-73); Platelet Count 213 X10*3/uL (160-400); Red Blood Count 5.08 X10*6/uL (4.60-5.80); Red Cell Distribution Width 11.8 % (11.0-16.0); White Blood Count 10.5 X10*3/uL (4.8-10.8)
[2021-10-20 14:11] LABS: TSH reflex Free T4 1.95 uIU/mL (0.32-4.0); Vitamin D 25-OH Total 35.8 ng/mL (>30)
[2021-10-20 14:20] LABS: Alanine Aminotransferase 16 U/L (0-40); Albumin Level 4.6 g/dL (3.5-5.0); Alkaline Phosphatase 101 U/L (39-117); Anion Gap 13 (12-20); Aspartate Amino Transferase 18 U/L (5-37); Bilirubin Total 0.6 mg/dL (0.0-1.0); Blood Urea Nitrogen 18 mg/dL (9-16); Calcium 9.2 mg/dL (8.4-10.2); Carbon Dioxide 26 mmol/L (22-29); Chloride 105 mmol/L (96-108); Cholesterol 154 mg/dL; Estimated Glomerular Filt Rate 49; Glucose Fasting 92 mg/dL (60-99); HDL Cholesterol 43 mg/dL; LDL Cholesterol Calculated 97 mg/dl; Sodium 139 mmol/L (135-145); Total Protein 7.2 g/dL (6.5-8.0); Triglycerides 74 mg/dL
== END 2021-10-20 11:16 | disposition home or self-care (01) ==
LOC: HO.LAB 11:15
PROVIDERS: PCP Internal Medicine; Visit Provider Internal Medicine
DX: I10 Essential (primary) hypertension (principal); E78.00 Pure hypercholesterolemia, unspecified; E55.9 Vitamin D deficiency, unspecified
CPT/HCPCS: 36415; 80053; 80061; 82306; 84443; 85025

== ENCOUNTER 2021-10-21 13:56 | Outpatient (REF) | payer OTHER, SELFPAY ==
[2021-10-21 14:01] LABS: Appearance Urine CLEAR; Color Urine YELLOW; Glucose Urine UA NEG (NEG); Leukocyte Esterase Urine NEG (NEG); Nitrite Urine NEG (NEG); Urine Blood NEG (NEG); Urine Ketones NEG (NEG); Urine Protein NEG (NEG-TRACE)
== END 2021-10-21 13:57 | disposition home or self-care (01) ==
LOC: HO.LNP 13:56
PROVIDERS: Visit Provider Internal Medicine
DX: I10 Essential (primary) hypertension (principal)
CPT/HCPCS: 81003

== ENCOUNTER 2021-12-18 12:06 | Outpatient (REF) | payer OTHER, SELFPAY ==
[2021-12-18 13:27] LABS: Anion Gap 13 (12-20); Blood Urea Nitrogen 14 mg/dL (9-16); Calcium 9.1 mg/dL (8.4-10.2); Carbon Dioxide 29 mmol/L (22-29); Chloride 104 mmol/L (96-108); Estimated Glomerular Filt Rate 51; Glucose Random 98 mg/dL (60-115); Potassium 4.6 mmol/L (3.3-5.1); Sodium 141 mmol/L (135-145); Uric Acid 6.1 mg/dL (3.4-7.0)
[2021-12-18 14:10] LABS: Creatinine Urine 182.44 mg/dL; Microalbum/Creatinine Ratio Ur 4.3 ug/mg cr; Total Protein Urine Random < 7 mg/dL (<12)
[2021-12-20 16:57] LABS: Calcium (PTHI) 9.4 mg/dL (8.6-10.3); PTHI 52 pg/mL (16-77)
== END 2021-12-18 12:07 | disposition home or self-care (01) ==
LOC: HO.LAB 12:06
PROVIDERS: PCP Internal Medicine; Visit Provider Internal Medicine Hypertension Specialist
DX: N18.31 Chronic kidney disease, stage 3a (principal); N20.0 Calculus of kidney
CPT/HCPCS: 36415; 80048; 82043; 83970; 84156; 84550

== ENCOUNTER 2021-12-31 14:40 | Outpatient (REF) | payer OTHER, SELFPAY ==
--- NOTE | ~2021-12-31 | US_ITS ---
EXAMINATION: US RETROPERITONEAL LIMITED (RENAL ONLY) CLINICAL INFORMATION: Chronic kidney disease stage 3a. COMPARISON: Renal ultrasound 04/02/2021. CT abdomen and pelvis 11/07/2020. TECHNIQUE: Real-time imaging of the kidneys. FINDINGS: RIGHT KIDNEY: 9.4 x 5.6 x 5.6 cm (SAG x AP x TRV). The kidney is normal in size, contour, and echogenicity. Renal cortical thickness is normal. No renal calculi or hydronephrosis. A focus in the right renal upper pole/interpolar region measuring up to 2.8 cm. Additional cystic focus in the interpolar region measuring up to 1.5 cm, both are simple appearing, requiring follow-up. LEFT KIDNEY: 9.8 x 5.5 x 4.5 cm (SAG x AP x TRV). The kidney is normal in size, contour, and echogenicity. Renal cortical thickness is normal. No calculi or focal parenchymal lesions. No hydronephrosis. US/US renal BI IMPRESSION: 1. Right renal simple appearing cysts measuring up to 2.8 cm, not requiring follow-up. 2. No nephrolithiasis or hydronephrosis.
== END 2021-12-31 14:41 | disposition home or self-care (01) ==
LOC: HO.US 14:40
PROVIDERS: PCP Internal Medicine; Visit Provider Internal Medicine Hypertension Specialist
DX: N20.0 Calculus of kidney (principal); N18.31 Chronic kidney disease, stage 3a
CPT/HCPCS: 76775

== ENCOUNTER 2022-02-01 10:31 | Outpatient (REF) | payer OTHER, SELFPAY ==
[2022-02-01 10:55] LABS: MANUAL DIFF FLAG NO
[2022-02-01 11:53] LABS: Basophils Percent Auto 0.3 % (0-2); Eosinophils Absolute Auto 0.2 X10*3/uL (0.0-0.4); Eosinophils Percent Auto 2.2 % (0-4); Hematocrit 48.5 % (42.0-52.0); Hemoglobin 16.3 g/dl (14.0-18.0); Imm Gran Abs Auto 0.08 X10*3/uL (0.00-0.03); Imm Gran Pct Auto 0.9 % (0.0-0.4); Lymphocytes Absolute Auto 1.8 X10*3/uL (1.2-4.9); Lymphocytes Percent Auto 19.4 % (20-40); Mean Corpuscular HGB Conc 33.6 g/dl (31.0-36.0); Mean Corpuscular Volume 89.2 fL (80.0-98.0); Mean Platelet Volume 9.9 fL (9.4-12.4); Monocytes Absolute Auto 0.8 X10*3/uL (0.1-1.2); Monocytes Percent Auto 8.7 % (2-11); Neutrophils Absolute Auto 6.4 x10*3/uL (2.0-8.3); Neutrophils Percent Auto 68.5 % (45-73); Platelet Count 237 X10*3/uL (160-400); Red Blood Count 5.44 X10*6/uL (4.60-5.80); Red Cell Distribution Width 11.7 % (11.0-16.0); White Blood Count 9.4 X10*3/uL (4.8-10.8)
[2022-02-01 12:21] LABS: TSH reflex Free T4 1.95 uIU/mL (0.32-4.0); Vitamin D 25-OH Total 34.3 ng/mL (>30)
[2022-02-01 12:36] LABS: Alanine Aminotransferase 15 U/L (0-40); Albumin Level 4.6 g/dL (3.5-5.0); Alkaline Phosphatase 85 U/L (39-117); Anion Gap 16 (12-20); Aspartate Amino Transferase 16 U/L (5-37); Bilirubin Total 0.6 mg/dL (0.0-1.0); Blood Urea Nitrogen 14 mg/dL (9-16); Calcium 9.4 mg/dL (8.4-10.2); Carbon Dioxide 28 mmol/L (22-29); Chloride 102 mmol/L (96-108); Cholesterol 154 mg/dL; Estimated Glomerular Filt Rate 45; Glucose Fasting 101 mg/dL (60-99); HDL Cholesterol 43 mg/dL; LDL Cholesterol Calculated 96 mg/dl; Potassium 4.8 mmol/L (3.3-5.1); Sodium 141 mmol/L (135-145); Total Protein 7.1 g/dL (6.5-8.0); Triglycerides 79 mg/dL
== END 2022-02-01 10:32 | disposition home or self-care (01) ==
LOC: HO.LAB 10:31
PROVIDERS: PCP Internal Medicine; Visit Provider Internal Medicine
DX: I10 Essential (primary) hypertension (principal); E55.9 Vitamin D deficiency, unspecified; E78.00 Pure hypercholesterolemia, unspecified
CPT/HCPCS: 36415; 80053; 80061; 82306; 84443; 85025

== ENCOUNTER 2022-02-02 16:37 | Outpatient (REF) | payer OTHER, SELFPAY ==
[2022-02-02 17:17] LABS: Appearance Urine Clear; Color Urine Yellow; Glucose Urine UA Negative (Negative); Leukocyte Esterase Urine Small (1+) (Negative); Nitrite Urine Negative (Negative); Specific Gravity - Urine 1.025 (1.005-1.025); UMIC TRIGGER UACC YES; Urine Blood Negative (Negative); Urine Ketones Negative (Negative); Urine Protein Negative (Neg-Trace)
[2022-02-02 17:36] LABS: Bacteria Urine None Seen (None Seen); Hyaline Casts Urine 0-2 /LPF (0-2); RBC Urine 0-2 /HPF (0-2); Squamous Epithelial Cell Urine 0-2 /HPF (0-2); UACC Culture Trigger YES
== END 2022-02-02 16:38 | disposition home or self-care (01) ==
LOC: HO.LNP 16:37
PROVIDERS: Visit Provider Internal Medicine
DX: I10 Essential (primary) hypertension (principal)
CPT/HCPCS: 81001; 81003; 87086

== ENCOUNTER 2022-05-18 12:27 | Outpatient (REF) | payer OTHER, SELFPAY ==
[2022-05-18 12:45] LABS: MANUAL DIFF FLAG NO
[2022-05-18 13:11] LABS: Basophils Percent Auto 0.4 % (0-2); Eosinophils Absolute Auto 0.2 X10*3/uL (0.0-0.4); Eosinophils Percent Auto 2.4 % (0-4); Hematocrit 46.6 % (42.0-52.0); Hemoglobin 15.7 g/dl (14.0-18.0); Imm Gran Abs Auto 0.04 X10*3/uL (0.00-0.03); Imm Gran Pct Auto 0.5 % (0.0-0.4); Lymphocytes Absolute Auto 1.6 X10*3/uL (1.2-4.9); Lymphocytes Percent Auto 19.2 % (20-40); Mean Corpuscular HGB Conc 33.7 g/dl (31.0-36.0); Mean Corpuscular Hemoglobin 30.2 pg (27.0-33.0); Mean Corpuscular Volume 89.6 fL (80.0-98.0); Mean Platelet Volume 10.1 fL (9.4-12.4); Monocytes Absolute Auto 0.6 X10*3/uL (0.1-1.2); Monocytes Percent Auto 7.2 % (2-11); Neutrophils Absolute Auto 5.9 x10*3/uL (2.0-8.3); Neutrophils Percent Auto 70.3 % (45-73); Platelet Count 188 X10*3/uL (160-400); Red Cell Distribution Width 11.8 % (11.0-16.0); White Blood Count 8.4 X10*3/uL (4.8-10.8)
[2022-05-18 14:04] LABS: Estimated Average Glucose 105 mg/dL; Hemoglobin A1c % 5.3 %
[2022-05-18 14:27] LABS: Appearance Urine Clear; Color Urine Yellow; Glucose Urine UA Negative (Negative); Leukocyte Esterase Urine Trace (Negative); Nitrite Urine Negative (Negative); UMIC TRIGGER UACC YES; Urine Blood Negative (Negative); Urine Ketones Negative (Negative); Urine Protein Negative (Neg-Trace)
[2022-05-18 14:32] LABS: Bacteria Urine None Seen (None Seen); Hyaline Casts Urine 0-2 /LPF (0-2); RBC Urine 0-2 /HPF (0-2); Squamous Epithelial Cell Urine 0-2 /HPF (0-2); WBC Urine 0-5 /HPF (0-5)
[2022-05-18 14:32] LABS: Alanine Aminotransferase 19 U/L (0-40); Albumin Level 4.3 g/dL (3.5-5.0); Alkaline Phosphatase 86 U/L (39-117); Anion Gap 14 (12-20); Aspartate Amino Transferase 17 U/L (5-37); Bilirubin Total 0.9 mg/dL (0.0-1.0); Blood Urea Nitrogen 15 mg/dL (9-16); Calcium 9.5 mg/dL (8.4-10.2); Carbon Dioxide 26 mmol/L (22-29); Chloride 106 mmol/L (96-108); Cholesterol 156 mg/dL; Estimated Glomerular Filt Rate 55; Glucose Fasting 102 mg/dL (60-99); HDL Cholesterol 47 mg/dL; LDL Cholesterol Calculated 97 mg/dl; Potassium 4.5 mmol/L (3.3-5.1); Sodium 141 mmol/L (135-145); TSH reflex Free T4 1.18 uIU/mL (0.32-4.0); Total Protein 6.5 g/dL (6.5-8.0); Triglycerides 63 mg/dL; Vitamin D 25-OH Total 28.9 ng/mL (>30)
== END 2022-05-18 12:28 | disposition home or self-care (01) ==
LOC: HO.LAB 12:27
PROVIDERS: PCP Internal Medicine; Visit Provider Internal Medicine
DX: R73.01 Impaired fasting glucose (principal); E78.00 Pure hypercholesterolemia, unspecified; E55.9 Vitamin D deficiency, unspecified; I10 Essential (primary) hypertension
CPT/HCPCS: 36415; 80053; 80061; 81001; 82306; 83036; 84443; 85025

== ENCOUNTER 2022-05-25 12:36 | Outpatient (REF) | payer OTHER, SELFPAY ==
[2022-05-25 14:25] LABS: Anion Gap 18 (12-20); Blood Urea Nitrogen 17 mg/dL (9-16); Calcium 9.7 mg/dL (8.4-10.2); Carbon Dioxide 25 mmol/L (22-29); Chloride 105 mmol/L (96-108); Estimated Glomerular Filt Rate 51; Glucose Random 113 mg/dL (60-115); Potassium 4.4 mmol/L (3.3-5.1); Sodium 144 mmol/L (135-145)
== END 2022-05-25 12:37 | disposition home or self-care (01) ==
LOC: HO.LAB 12:36
PROVIDERS: PCP Internal Medicine; Visit Provider Internal Medicine Hypertension Specialist
DX: I12.9 Hypertensive chronic kidney disease with stage 1 through stage 4 chronic kidney disease, or unspecified chronic kidney disease (principal); N18.9 Chronic kidney disease, unspecified
CPT/HCPCS: 36415; 80048

== ENCOUNTER → 2022-07-21 13:27 | Outpatient (BNVA) | payer OTHER, SELFPAY | PROVIDERS: PCP Internal Medicine; Visit Provider Urology | DX: Z12.5 Encounter for screening for malignant neoplasm of prostate (principal); R33.9 Retention of urine, unspecified; R39.15 Urgency of urination | CPT/HCPCS: 51798; 99202 ==

== ENCOUNTER 2022-08-16 12:42 | Outpatient (REF) | payer OTHER, SELFPAY ==
[2022-08-16 12:58] LABS: MANUAL DIFF FLAG NO
[2022-08-16 13:12] LABS: Basophils Percent Auto 0.3 % (0-2); Eosinophils Absolute Auto 0.2 X10*3/uL (0.0-0.4); Hematocrit 49.3 % (42.0-52.0); Hemoglobin 16.6 g/dl (14.0-18.0); Imm Gran Abs Auto 0.04 X10*3/uL (0.00-0.03); Imm Gran Pct Auto 0.4 % (0.0-0.4); Lymphocytes Absolute Auto 1.7 X10*3/uL (1.2-4.9); Mean Corpuscular HGB Conc 33.7 g/dl (31.0-36.0); Mean Corpuscular Hemoglobin 30.1 pg (27.0-33.0); Mean Corpuscular Volume 89.5 fL (80.0-98.0); Mean Platelet Volume 10.2 fL (9.4-12.4); Monocytes Absolute Auto 0.7 X10*3/uL (0.1-1.2); Monocytes Percent Auto 7.2 % (2-11); Neutrophils Absolute Auto 6.6 x10*3/uL (2.0-8.3); Neutrophils Percent Auto 72.1 % (45-73); Platelet Count 207 X10*3/uL (160-400); Red Blood Count 5.51 X10*6/uL (4.60-5.80); Red Cell Distribution Width 11.9 % (11.0-16.0); White Blood Count 9.2 X10*3/uL (4.8-10.8)
[2022-08-16 13:58] LABS: Alanine Aminotransferase 39 U/L (0-40); Albumin Level 4.7 g/dL (3.5-5.0); Alkaline Phosphatase 93 U/L (39-117); Anion Gap 12 (12-20); Aspartate Amino Transferase 29 U/L (5-37); Blood Urea Nitrogen 13 mg/dL (9-16); Calcium 10.1 mg/dL (8.4-10.2); Carbon Dioxide 30 mmol/L (22-29); Chloride 104 mmol/L (96-108); Cholesterol 178 mg/dL; Estimated Glomerular Filt Rate 51; Glucose Fasting 100 mg/dL (60-99); HDL Cholesterol 48 mg/dL; LDL Cholesterol Calculated 108 mg/dl; Potassium 4.8 mmol/L (3.3-5.1); Sodium 141 mmol/L (135-145); Total Protein 7.1 g/dL (6.5-8.0); Triglycerides 112 mg/dL
[2022-08-16 14:17] LABS: TSH reflex Free T4 2.25 uIU/mL (0.32-4.0); Vitamin D 25-OH Total 38.8 ng/mL (>30)
[2022-08-16 14:39] LABS: Estimated Average Glucose 108 mg/dL; Hemoglobin A1c % 5.4 %
== END 2022-08-16 12:43 | disposition home or self-care (01) ==
LOC: HO.LAB 12:42
PROVIDERS: PCP Internal Medicine; Visit Provider Internal Medicine
DX: E78.00 Pure hypercholesterolemia, unspecified (principal); R73.01 Impaired fasting glucose; E55.9 Vitamin D deficiency, unspecified; I10 Essential (primary) hypertension
CPT/HCPCS: 36415; 80053; 80061; 82306; 83036; 84443; 85025

== ENCOUNTER 2022-08-17 13:43 | Outpatient (REF) | payer OTHER, SELFPAY ==
[2022-08-17 14:01] LABS: Appearance Urine Clear; Color Urine Yellow; Glucose Urine UA Negative (Negative); Leukocyte Esterase Urine Trace (Negative); Nitrite Urine Negative (Negative); UMIC TRIGGER UACC YES; Urine Blood Negative (Negative); Urine Ketones Negative (Negative); Urine Protein Negative (Neg-Trace)
[2022-08-17 14:37] LABS: Bacteria Urine None Seen (None Seen); Hyaline Casts Urine 0-2 /LPF (0-2); RBC Urine 0-2 /HPF (0-2); Squamous Epithelial Cell Urine 0-2 /HPF (0-2); WBC Urine 0-5 /HPF (0-5)
== END 2022-08-17 13:44 | disposition home or self-care (01) ==
LOC: HO.LNP 13:43
PROVIDERS: Visit Provider Internal Medicine
DX: R30.0 Dysuria (principal)
CPT/HCPCS: 81001; 81003

== ENCOUNTER → 2022-09-27 13:35 | Outpatient (BNVA) | payer OTHER, SELFPAY | PROVIDERS: PCP Internal Medicine; Visit Provider Urology | DX: Z12.5 Encounter for screening for malignant neoplasm of prostate (principal); R33.9 Retention of urine, unspecified; R39.15 Urgency of urination | CPT/HCPCS: 51798; 99212 ==

== ENCOUNTER 2022-10-13 13:42 | Outpatient (REF) | payer OTHER, SELFPAY ==
[2022-10-13 15:20] LABS: PSA,Total (Free>4and<10) 0.31 ng/mL (0.00-4.00)
== END 2022-10-13 13:43 | disposition home or self-care (01) ==
LOC: HO.LAB 13:42
PROVIDERS: PCP Internal Medicine; Visit Provider Urology
DX: I10 Essential (primary) hypertension (principal); R30.0 Dysuria; Z12.5 Encounter for screening for malignant neoplasm of prostate
CPT/HCPCS: 36415; 84153

== ENCOUNTER 2022-11-23 09:57 | Outpatient (REF) | payer OTHER, SELFPAY ==
[2022-11-23 10:18] LABS: MANUAL DIFF FLAG NO
[2022-11-23 11:03] LABS: Basophils Percent Auto 0.3 % (0-2); Eosinophils Absolute Auto 0.3 X10*3/uL (0.0-0.4); Eosinophils Percent Auto 2.8 % (0-4); Hemoglobin 14.7 g/dl (14.0-18.0); Imm Gran Abs Auto 0.04 X10*3/uL (0.00-0.03); Imm Gran Pct Auto 0.4 % (0.0-0.4); Mean Corpuscular HGB Conc 33.4 g/dl (31.0-36.0); Mean Corpuscular Hemoglobin 29.9 pg (27.0-33.0); Mean Corpuscular Volume 89.6 fL (80.0-98.0); Mean Platelet Volume 10.2 fL (9.4-12.4); Monocytes Absolute Auto 0.8 X10*3/uL (0.1-1.2); Monocytes Percent Auto 8.3 % (2-11); Neutrophils Percent Auto 66.2 % (45-73); Platelet Count 257 X10*3/uL (160-400); Red Blood Count 4.91 X10*6/uL (4.60-5.80); White Blood Count 9.1 X10*3/uL (4.8-10.8)
[2022-11-23 11:35] LABS: Alanine Aminotransferase 31 U/L (0-40); Albumin Level 4.4 g/dL (3.5-5.0); Alkaline Phosphatase 73 U/L (39-117); Anion Gap 11 (12-20); Aspartate Amino Transferase 23 U/L (5-37); Bilirubin Total 0.5 mg/dL (0.0-1.0); Blood Urea Nitrogen 12 mg/dL (9-16); Calcium 9.5 mg/dL (8.4-10.2); Carbon Dioxide 29 mmol/L (22-29); Chloride 107 mmol/L (96-108); Cholesterol 163 mg/dL; Estimated Glomerular Filt Rate 60; Glucose Fasting 108 mg/dL (60-99); HDL Cholesterol 46 mg/dL; LDL Cholesterol Calculated 105 mg/dl; Potassium 4.1 mmol/L (3.3-5.1); Sodium 143 mmol/L (135-145); Total Protein 6.9 g/dL (6.5-8.0); Triglycerides 62 mg/dL
== END 2022-11-23 09:58 | disposition home or self-care (01) ==
LOC: HO.LAB 09:57
PROVIDERS: PCP Internal Medicine; Visit Provider Internal Medicine
DX: I10 Essential (primary) hypertension (principal); E78.00 Pure hypercholesterolemia, unspecified
CPT/HCPCS: 36415; 80053; 80061; 85025

== ENCOUNTER 2022-12-01 14:21 | Outpatient (AMB) | payer OTHER, SELFPAY ==
[2022-12-01 14:22] VITALS: BP 118/82; PULSE 80; O2SAT 97; BMI 28.7
--- NOTE | 2022-12-01 14:22 | MHC.PC.OV ---
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 Required: No Accompanied by: Self / Same As Patient Allergies gabapentin Allergy (Unknown, Verified 12/01/22 15:16) trouble swallowing, swelling Medication List - Last Reconciled 12/01/22 by Desmond Montelongo MD atorvastatin 10 mg PO DAILY bupropion HCl 150 mg PO QAM [id number]-[id number]-itsp 50-325-40 mg 1 cap PO ONCE PRN cholecalciferol (vitamin D3) (Vitamin D3) 25 mcg PO DAILY clonazepam 0.25 mg PO BID cyclobenzaprine 10 mg PO TID PRN hydrocortisone 1% (Anti-Itch (hydrocortisone)) 1 appl topical TID PRN lisinopril 10 mg PO DAILY oxycodone 10 mg PO Q6H PRN 28 days quetiapine 100 mg PO BEDTIME tadalafil (Cialis) 20 mg PO DAILY PRN topiramate 25 mg PO DAILY zolpidem 10 mg PO BEDTIME PRN Tobacco use date assessed: 12/01/22 Dental Screening Dental Screen Date: 12/01/22 Did you have a dental visit in the last 12 months?: Yes Did you have a dental problem in the last 6 months where you did not have access to dental care?: No Was dental information given to patient?: Patient has dentist HPI hyperlipidemia, lumbar DDD, HTN, anxiety HPI Details Patient comes in today for his follow up visit States that he went to the ER at [facility] a couple of weeks ago on 11/13/22 for increasing left ear pain x 3 weeks Was prescribed some antibiotic ear drops and states that his ear symptoms gradually improved over the next week or so States that he currently still has some lingering discomfort in his left ear at times but his ear feels a lot better than it did a month ago He denies any fever or sore throat; denies any recent cough/cold symptoms Denies any chest pains, no SOB No nausea/vomiting, no abdominal pain No change in bowel habits noted States that his chronic low back pain remains adequately controlled on his current Rx Had his follow up labs done last week - to discuss his results [facility] Medical History Anxiety Benign essential hypertension Benign prostatic hyperplasia Bilateral carpal tunnel syndrome Chronic kidney disease (CKD), stage III (moderate) Depression Impaired fasting glucose Insomnia Lumbar degenerative disc disease Migraine Overweight (BMI 25.0-29.9) Pure hypercholesterolemia Renal insufficiency Rupture of ligament of wrist Status post proximal row carpectomy of wrist (~08/23/22) Thyroid nodule Vitamin D deficiency Surgical History Deficient knowledge of spinal cord stimulator History of bladder surgery History of hemorrhoidectomy History of knee replacement procedure of right knee History of lumbosacral spine surgery (~11/24/20) History of surgery History of surgery on right wrist (~02/07/20) S/P aneurysm repair S/P lumbar and lumbosacral fusion by anterior technique (~11/24/20) Family History Father Medical history unknown Mother Diabetes Hypertension Social History Housing: House Alcohol intake: former Patient Tobacco Use Status: Never used Tobacco e-Cigarette/Vaping Use: Never Used Second Hand Smoke Exposure: Yes service: No Current occupational status: unemployed Cognitive needs: No Hearing needs: No Vision needs: No Questionnaire PHQ-9 Over the last 2 weeks, how often have you been bothered by any of the following problems? 1. Little interest or pleasure in doing things: several days 2. Feeling down, depressed, or hopeless: several days 3. Trouble falling or staying asleep, or sleeping too much: several days 4. Feeling tired or having little energy: several days 5. Poor appetite or overeating: not at all 6. Feeling bad about yourself - or that you are a failure or have let yourself or your family down: not at all 7. Trouble concentrating on things, such as reading the newspaper or watching television: not at all 8. Moving or speaking so slowly that other people could have noticed. Or the opposite - being so fidgety or restless that you have been moving around a lot more than usual: not at all 9. Thoughts that you would be better off or of hurting yourself in some way: not at all Total score: 4 Depression Screening Interpretation: Positive Depression Screening Follow-up: Existing condition and In treatment 19859 - PHQ-9 Billing: Yes Source: Developed by Drs. Job Pleitez, Pat Murry, Simon Mejía and colleagues, with an educational delicia from [employer]. Thrive Questionnaire Date Thrive assessed: 12/01/22 I am a: Patient What is your living situation today?: I have a place to live, but I am worried about losing it in the future Within the past 12 months, did the food you bought not last and you didn't have the money to get more?: Never true Within the past 12 months, did you worry whether your food would run out before you got money to buy more?: Never true Do you have trouble paying for medicines?: No Do you have trouble getting transportation to medical appointments?: No Do you have trouble paying your heating and electricity bill?: No Do you have trouble taking care of your child, family member or friend?: No Do you have trouble with day-to-day activities such as bathing, preparing meals, shopping, managing finances, etc.?: No Are you currently unemployed and looking for a job?: No Are you interested in more education?: No Please select the resources that you would like help with: None Currently or been in a relationship where the following occur: no concerns reported AUDIT C Alcohol Use Questionnaire (AUDIT-C) 1. How often do you have a drink containing alcohol?: Never 3. How often do you have six or more drinks on one occasion?: Never Total Score: 0 Score Reviewed/Action Taken: Yes KARINA-7 AMB Questionnaire KARINA-7 Date KARINA - 7 assessed: 12/01/22 Feeling nervous, anxious, or on edge: 0 = Not at all Not being able to stop or control worryin = Several days Worrying too much about different things: 0 = Not at all Trouble relaxin = Not at all Being so restless that it is hard to sit still: 0 = Not at all Becoming easily annoyed or irritable: 0 = Not at all Feeling afraid as if something awful might happen: 0 = Not at all Total KARINA-7 score (0-4 normal; 5-9 mild; 10-14 moderate; 15-21 severe): 1 Source: Developed by Drs. Job Pleitez, Pat Murry, Simon Mejía and colleagues, with an educational delicia from [employer]. Review of Systems Const Denies chills, Denies fatigue, Denies fever(s) and Denies headache(s) ENT Denies dysphagia, Denies dizziness, Denies ear discharge, Denies otalgia (but has some lingering discomfort in the left ear), Denies headache(s), Denies nasal congestion, Denies neck pain, Denies odynophagia and Denies sore throat Card Denies chest pain, Denies palpitations and Denies dyspnea Resp Denies cough, Denies dyspnea and Denies wheezing GI Denies abdominal pain, Denies constipation, Denies dysphagia, Denies heartburn, Denies diarrhea, Denies nausea, Denies odynophagia and Denies vomiting Denies dysuria, Denies nocturia and Denies urinary frequency Musc Reports back pain (over the lumbar spine - chronic), Reports arthralgias (right wrist - S/P surgery on 08/23/22 - better since) and Denies neck pain Neuro Denies dizziness and Denies headache(s) Endo Denies fatigue and Denies palpitations Aller/Immun Denies wheezing Physical exam (Primary Care) Vital Signs: Last Vital Signs Pulse 80 12/01/22 14:22 BP 118/82 12/01/22 14:22 Pulse Ox 97 12/01/22 14:22 Oxygen Delivery Method Room Air 12/01/22 14:22 BMI result Body Mass Index 28.7 Tobacco/Smoking Status: Tobacco use Status Tobacco use date assessed 12/01/22 12/01/22 14:28 Patient Tobacco Use Status Never used Tobacco 12/01/22 14:28 e-Cigarette/Vaping Use Never Used 12/01/22 14:28 PHQ-9: PHQ-9 Score PHQ-9: Total score 4 12/01/22 16:58 Depression Screening Interpretation: Positive Depression Screening Follow-up: Existing condition and In treatment Thrive Assessment: Date of Thrive Assessment Date Thrive assessed 12/01/22 12/01/22 14:28 Currently or been in a relationship where the following occur: no concerns reported Const General: no acute distress and alert HENMT Ears: TM's normal bilaterally and EAC's normal Throat: Yes posterior oropharynx normal and Yes tonsils normal (no TP congestion noted) Neck Neck: Yes no lymphadenopathy and Yes supple Resp Auscultation: clear to auscultation bilaterally, no rales and no wheezes Cardio Rate: regular rate Rhythm: regular rhythm Heart sounds: no murmurs GI Palpation (GI): Soft to palpation, nontender and No hepatosplenomegaly present Back/Spine/Pelvis Thoracic/Lumbar Spine: lumbar spinal tenderness Extrem Other: (+) bilateral wrist tenderness, R>L, with some limitation of ROM of the right wrist - right wrist and hand is currently in bandages and a sling General: Yes no clubbing, cyanosis or edema Results Reviewed Results Reviewed: Laboratory Tests 11/23/22 11/23/22 10:17 10:17 WBC 9.1 Hgb 14.7 Hct 44.0 Plt Count 257 Sodium 143 Potassium 4.1 Creatinine 1.29 Estimated GFR 60 Fasting Glucose 108 H Calcium 9.5 AST 23 ALT 31 Triglycerides 62 Cholesterol 163 LDL Cholesterol, Calc 105 HDL Cholesterol 46 Assessment and Plan Assessment & Plan (1) Benign essential hypertension: Code(s): I10 - Essential (primary) hypertension Plan: Reinforced low sodium diet - goal is systolic BP of 120 mm or less Continue Lisinopril 10 mg QD (2) Pure hypercholesterolemia: Code(s): E78.00 - Pure hypercholesterolemia, unspecified Plan: Results of his labs done last week reviewed and discussed with patient - lipids have improved slightly from previous Reinforced low cholesterol diet Continue Atorvastatin 10 mg QD for now Will recheck his labs and fasting lipids in 3 months for follow-up (3) Chronic kidney disease (CKD), stage III (moderate): Code(s): N18.30 - Chronic kidney disease, stage 3 unspecified Qualifiers: Chronic kidney disease stage 3 subtype: stage 3a (GFR 45-59) Qualified Code(s): N18.31 - Chronic kidney disease, stage 3a Plan: GFR and renal function again appears stable on his recent labs - will continue to monitor closely Renal US done last year came out normal, with small right renal cysts - no follow up imaging studies required Patient is encouraged to continue to increase his oral fluid intake consistently Follow up with nephrology as scheduled (4) Impaired fasting glucose: Code(s): R73.01 - Impaired fasting glucose Plan: HgbA1c was normal at 5.3% on his labs done a few months ago; in-office HgbA1c was also normal at 5.4% when checked last year Reinforced low calorie diet/exercise as tolerated (5) Lumbar degenerative disc disease: Code(s): M51.36 - Other intervertebral disc degeneration, lumbar region Plan: S/P anterior lumbar interbody fusion of L5-S1 by Dr. Philip on 11/24/2020 Reinforced activity and weight lifting restrictions Continue Oxycodone 10 mg every 6 hours as needed for increased pain, 28 days, #112 tablets, refills 0 - Rx refilled Patient cautioned again to avoid all NSAIDs completely as they can adversely affect his renal function (6) Bilateral carpal tunnel syndrome: Code(s): G56.03 - Carpal tunnel syndrome, bilateral upper limbs Plan: S/P right wrist tendon repair by Dr. Moyer on 09/08/2020 for rupture of ligament of the right wrist and more recently, S/P proximal row carpectomy on 08/23/22 Follow up with orthopedics as scheduled (7) Right renal mass: Code(s): N28.89 - Other specified disorders of kidney and ureter Plan: RESOLVED Abdominal and pelvic CT done at the ER a couple of years ago revealed (+) 2.8 cm low attenuating lesion arising from the midpole of the right kidney laterally has increased in size from 2010 Follow up US done in March 2021 came out normal and no follow up US is recommended in the future (8) Migraine: Code(s): G43.909 - Migraine, unspecified, not intractable, without status migrainosus Qualifiers: Intractability: not intractable Migraine type: unspecified Status migrainosus presence: without status migrainosus Qualified Code(s): G43.909 - Migraine, unspecified, not intractable, without status migrainosus Plan: Stable/controlled Continue Topiramate 25 mg Q HS for migraine headache prophylaxis Continue Fioricet 50-325-40 mg 1 tablet 3 to 4 times a day as needed for headaches (9) Thyroid nodule: Code(s): E04.1 - Nontoxic single thyroid nodule Plan: Stable - repeat thyroid US done in March 2021 came out normal; will consider getting a follow up US in 3 years (03/2024) Was last seen by endocrinology (Dr. Antunez) in March 2018 and recommended repeat TFTs every few months for follow up Advised that given the long-term stability of his thyroid nodule, he can just see his PCP for this and no longer needs to follow up with endocrinology on a regular basis unless something changes or something new occurs (10) Left otitis externa: Code(s): H60.92 - Unspecified otitis externa, left ear Qualifiers: Otitis externa type: unspecified type Chronicity: acute Qualified Code(s): H60.502 - Unspecified acute noninfective otitis externa, left ear Plan: Resolving; S/P Tx with Abx ear drops x 7 days recently (11) Benign prostatic hyperplasia with urinary hesitancy: Code(s): N40.1 - Benign prostatic hyperplasia with lower urinary tract symptoms; R39.11 - Hesitancy of micturition Plan: PSA last done last year came out normal Follow up with urology as scheduled (12) Insomnia: Code(s): G47.00 - Insomnia, unspecified Qualifiers: Insomnia type: unspecified Qualified Code(s): G47.00 - Insomnia, unspecified Plan: Sleep hygiene reinforced Continue Zolpidem 10 mg Q HS PRN (13) Anxiety: Code(s): F41.9 - Anxiety disorder, unspecified Plan: Continue Clonazepam 0.5 mg BID PRN (14) Depression: Code(s): F32.9 - Major depressive disorder, single episode, unspecified Qualifiers: Depression Type: unspecified Qualified Code(s): F32.A - Depression, unspecified Plan: Continue Quetiapine 100 mg Q HS and Bupropion ER 150 mg QD Follow up with psychiatry as scheduled (15) Overweight (BMI 25.0-29.9): Code(s): E66.3 - Overweight Plan: Reinforced diet/exercise as tolerated/lose weight Plan Follow up in 3 months Orders: Orders Comprehensive [place]. Panel Fast 3 Months E78.00 - Pure hypercholesterolemia, unspecified Lipid Panel 3 Months E78.00 - Pure hypercholesterolemia, unspecified Hemoglobin A1c 3 Months R73.01 - Impaired fasting glucose TSH reflex Free T4 3 Months E78.00 - Pure hypercholesterolemia, unspecified Vitamin D 25-OH Total 3 Months E55.9 - Vitamin D deficiency, unspecified Complete Blood Count Auto Diff 3 Months I10 - Essential (primary) hypertension UA CC w/rflx Micro + Cult 3 Months R30.0 - Dysuria Coding Level of Care Code Est Pt Level 4 (82760) Diagnoses Benign essential hypertension I10 Pure hypercholesterolemia E78.00 Chronic kidney disease (CKD), stage III (moderate) N18.31 Chronic kidney disease stage 3 subtype: stage 3a (GFR 45-59) Impaired fasting glucose R73.01 Lumbar degenerative disc disease M51.36 Bilateral carpal tunnel syndrome G56.03 Right renal mass N28.89 Migraine G43.909 Intractability: not intractable Migraine type: unspecified Status migrainosus presence: without status migrainosus Thyroid nodule E04.1 Left otitis externa H60.502 Otitis externa type: unspecified type Chronicity: acute Benign prostatic hyperplasia with urinary hesitancy N40.1; R39.11 Insomnia G47.00 Insomnia type: unspecified Anxiety F41.9 Depression F32.A Depression Type: unspecified Overweight (BMI 25.0-29.9) E66.3
== END 2022-12-01 15:27 | disposition home or self-care (01) ==
PROVIDERS: PCP Internal Medicine; Visit Provider Internal Medicine
DX: I12.9 Hypertensive chronic kidney disease with stage 1 through stage 4 chronic kidney disease, or unspecified chronic kidney disease (principal); N18.31 Chronic kidney disease, stage 3a; E04.1 Nontoxic single thyroid nodule; F41.9 Anxiety disorder, unspecified; G43.909 Migraine, unspecified, not intractable, without status migrainosus; E78.00 Pure hypercholesterolemia, unspecified; R73.01 Impaired fasting glucose; M51.36 Other intervertebral disc degeneration, lumbar region; G56.03 Carpal tunnel syndrome, bilateral upper limbs; N28.89 Other specified disorders of kidney and ureter; H60.502 Unspecified acute noninfective otitis externa, left ear; G47.00 Insomnia, unspecified
CPT/HCPCS: 99214

== ENCOUNTER 2022-12-09 13:35 | Outpatient (REF) | payer OTHER, SELFPAY ==
[2022-12-09 16:21] LABS: Anion Gap 9 (12-20); Blood Urea Nitrogen 11 mg/dL (9-16); Calcium 9.9 mg/dL (8.4-10.2); Carbon Dioxide 31 mmol/L (22-29); Chloride 105 mmol/L (96-108); Estimated Glomerular Filt Rate 57; Glucose Random 53 mg/dL (60-115); Sodium 141 mmol/L (135-145)
== END 2022-12-09 13:36 | disposition home or self-care (01) ==
LOC: HO.LAB 13:35
PROVIDERS: PCP Internal Medicine; Visit Provider Internal Medicine Hypertension Specialist
DX: N18.31 Chronic kidney disease, stage 3a (principal)
CPT/HCPCS: 36415; 80048

== ENCOUNTER 2023-02-21 11:10 | Outpatient (REF) | payer OTHER, SELFPAY ==
[2023-02-21 11:27] LABS: MANUAL DIFF FLAG NO
[2023-02-21 11:40] LABS: Basophils Absolute Auto 0.1 X10*3/uL (0.0-0.2); Basophils Percent Auto 0.6 % (0-2); Eosinophils Absolute Auto 0.2 X10*3/uL (0.0-0.4); Eosinophils Percent Auto 3.1 % (0-4); Hematocrit 46.6 % (42.0-52.0); Hemoglobin 15.8 g/dl (14.0-18.0); Imm Gran Abs Auto 0.03 X10*3/uL (0.00-0.03); Imm Gran Pct Auto 0.4 % (0.0-0.4); Lymphocytes Absolute Auto 1.8 X10*3/uL (1.2-4.9); Mean Corpuscular HGB Conc 33.9 g/dl (31.0-36.0); Mean Corpuscular Hemoglobin 30.3 pg (27.0-33.0); Mean Corpuscular Volume 89.4 fL (80.0-98.0); Monocytes Absolute Auto 0.7 X10*3/uL (0.1-1.2); Monocytes Percent Auto 8.4 % (2-11); Neutrophils Percent Auto 64.5 % (45-73); Platelet Count 195 X10*3/uL (160-400); Red Blood Count 5.21 X10*6/uL (4.60-5.80); Red Cell Distribution Width 11.9 % (11.0-16.0); White Blood Count 7.7 X10*3/uL (4.8-10.8)
[2023-02-21 11:51] LABS: Estimated Average Glucose 105 mg/dL; Hemoglobin A1c % 5.3 % (<6.0)
[2023-02-21 12:34] LABS: Alanine Aminotransferase 22 U/L (0-40); Albumin Level 4.5 g/dL (3.5-5.0); Alkaline Phosphatase 86 U/L (39-117); Anion Gap 11 (12-20); Aspartate Amino Transferase 23 U/L (5-37); Bilirubin Total 0.6 mg/dL (0.0-1.0); Blood Urea Nitrogen 13 mg/dL (9-16); Calcium 9.6 mg/dL (8.4-10.2); Carbon Dioxide 31 mmol/L (22-29); Chloride 104 mmol/L (96-108); Cholesterol 169 mg/dL (<200); Estimated Glomerular Filt Rate 51; Glucose Fasting 96 mg/dL (60-99); HDL Cholesterol 46 mg/dL (>40); LDL Cholesterol Calculated 108 mg/dL (<100); Potassium 4.8 mmol/L (3.3-5.1); Sodium 141 mmol/L (135-145); Total Protein 7.2 g/dL (6.5-8.0); Triglycerides 77 mg/dL (<150)
[2023-02-21 12:36] LABS: TSH reflex Free T4 1.94 uIU/mL (0.32-4.0)
== END 2023-02-21 11:11 | disposition home or self-care (01) ==
LOC: HO.LAB 11:10
PROVIDERS: PCP Internal Medicine; Visit Provider Internal Medicine
DX: I10 Essential (primary) hypertension (principal); E78.00 Pure hypercholesterolemia, unspecified; R73.01 Impaired fasting glucose; E55.9 Vitamin D deficiency, unspecified
CPT/HCPCS: 36415; 80053; 80061; 82306; 83036; 84443; 85025

== ENCOUNTER 2023-03-04 14:22 | Outpatient (AMB) | payer OTHER, SELFPAY ==
[2023-03-04 14:24] VITALS: BP 138/80; PULSE 93; O2SAT 97; BMI 29.4
--- NOTE | 2023-03-04 14:24 | MHC.PC.OV ---
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 Accompanied by: Self / Same As Patient Allergies gabapentin Allergy (Unknown, Verified 03/04/23 14:51) trouble swallowing, swelling Medication List - Last Reconciled 03/04/23 by Desmond Montelongo MD atorvastatin 10 mg PO DAILY bupropion HCl 150 mg PO QAM gtznqzycyf-pibftcvosczaa-kfdz 50-325-40 mg 1 cap PO ONCE PRN cholecalciferol (vitamin D3) (Vitamin D3) 25 mcg PO DAILY clonazepam 0.25 mg PO BID cyclobenzaprine 10 mg PO TID PRN hydrocortisone 1% (Anti-Itch (hydrocortisone)) 1 appl topical TID PRN lisinopril 10 mg PO DAILY oxycodone 10 mg PO Q6H PRN 28 days quetiapine 100 mg PO BEDTIME tadalafil (Cialis) 20 mg PO DAILY PRN topiramate 25 mg PO DAILY zolpidem 10 mg PO BEDTIME PRN Tobacco use date assessed: 03/04/23 Dental Screening Dental Screen Date: 03/04/23 Did you have a dental visit in the last 12 months?: Yes Did you have a dental problem in the last 6 months where you did not have access to dental care?: No Was dental information given to patient?: Patient has dentist HPI 3mth f/u HPI Details Patient comes in today for his follow up visit States that he feels okay He denies any headaches or dizziness Denies any chest pains, no SOB No nausea/vomiting, no abdominal pain No change in bowel habit s noted States that his chronic low back pain and joint pains remain adequately controlled on his current Rx - needs his pain med Rx refilled today Had his follow up labs done a couple of weeks ago - to discuss his results [facility] Medical History Status post proximal row carpectomy of wrist (~08/23/22) Chronic kidney disease (CKD), stage III (moderate) Rupture of ligament of wrist Renal insufficiency Vitamin D deficiency Overweight (BMI 25.0-29.9) Depression Anxiety Insomnia Benign prostatic hyperplasia Bilateral carpal tunnel syndrome Thyroid nodule Migraine Impaired fasting glucose Pure hypercholesterolemia Benign essential hypertension Lumbar degenerative disc disease Surgical History History of lumbosacral spine surgery (~11/24/20) History of surgery on right wrist (~02/07/20) S/P lumbar and lumbosacral fusion by anterior technique (~11/24/20) History of surgery Deficient knowledge of spinal cord stimulator S/P aneurysm repair History of knee replacement procedure of right knee History of hemorrhoidectomy History of bladder surgery Family History Father Medical history unknown Mother Diabetes Hypertension Social History Housing: House Alcohol intake: former Patient Tobacco Use Status: Never used Tobacco e-Cigarette/Vaping Use: Never Used Second Hand Smoke Exposure: Yes service: No Current occupational status: unemployed Cognitive needs: No Hearing needs: No Vision needs: No Questionnaire PHQ-9 Over the last 2 weeks, how often have you been bothered by any of the following problems? 1. Little interest or pleasure in doing things: several days 2. Feeling down, depressed, or hopeless: several days 3. Trouble falling or staying asleep, or sleeping too much: several days 4. Feeling tired or having little energy: several days 5. Poor appetite or overeating: not at all 6. Feeling bad about yourself - or that you are a failure or have let yourself or your family down: not at all 7. Trouble concentrating on things, such as reading the newspaper or watching television: not at all 8. Moving or speaking so slowly that other people could have noticed. Or the opposite - being so fidgety or restless that you have been moving around a lot more than usual: not at all 9. Thoughts that you would be better off or of hurting yourself in some way: not at all Total score: 4 Depression Screening Interpretation: Positive Depression Screening Follow-up: Existing condition and In treatment Depression Screening Done: Yes 36936 - PHQ-9 Billing: Yes Source: Developed by Drs. Pat Breaux, Simon Mejía and colleagues, with an educational delicia from [employer]. Thrive Questionnaire Date Thrive assessed: 03/04/23 I am a: Patient What is your living situation today?: I have a place to live, but I am worried about losing it in the future Within the past 12 months, did the food you bought not last and you didn't have the money to get more?: Never true Within the past 12 months, did you worry whether your food would run out before you got money to buy more?: Never true Do you have trouble paying for medicines?: No Do you have trouble getting transportation to medical appointments?: No Do you have trouble paying your heating and electricity bill?: No Do you have trouble taking care of your child, family member or friend?: No Do you have trouble with day-to-day activities such as bathing, preparing meals, shopping, managing finances, etc.?: No Are you currently unemployed and looking for a job?: No Are you interested in more education?: No Please select the resources that you would like help with: None Currently or been in a relationship where the following occur: no concerns reported AUDIT C Alcohol Use Questionnaire (AUDIT-C) 1. How often do you have a drink containing alcohol?: Never 3. How often do you have six or more drinks on one occasion?: Never Total Score: 0 Score Reviewed/Action Taken: Yes KARINA-7 AMB Questionnaire KARINA-7 Date KARINA - 7 assessed: 03/04/23 Feeling nervous, anxious, or on edge: 0 = Not at all Not being able to stop or control worryin = Several days Worrying too much about different things: 0 = Not at all Trouble relaxin = Not at all Being so restless that it is hard to sit still: 0 = Not at all Becoming easily annoyed or irritable: 0 = Not at all Feeling afraid as if something awful might happen: 0 = Not at all Total KARINA-7 score (0-4 normal; 5-9 mild; 10-14 moderate; 15-21 severe): 1 Source: Developed by Pat Ansari, Simon Mejía and colleagues, with an educational delicia from [employer]. Review of Systems Const Denies fatigue, Denies fever(s) and Denies headache(s) ENT Denies dysphagia, Denies dizziness, Denies otalgia, Denies headache(s), Denies odynophagia and Denies sore throat Card Denies chest pain, Denies palpitations and Denies dyspnea Resp Denies cough, Denies dyspnea and Denies wheezing GI Denies abdominal pain, Denies constipation, Denies dysphagia, Denies heartburn, Denies diarrhea, Denies nausea, Denies odynophagia and Denies vomiting Denies dysuria, Denies nocturia and Denies urinary frequency Musc Reports back pain (over the lumbar spine - chronic) and Reports arthralgias (right wrist - slightly better since surgery on 08/23/22) Skin/Breast Denies rash Neuro Denies dizziness and Denies headache(s) Endo Denies fatigue and Denies palpitations Aller/Immun Denies wheezing Physical exam (Primary Care) Vital Signs: Last Vital Signs Pulse 93 03/04/23 14:24 BP 138/80 03/04/23 14:24 Pulse Ox 97 03/04/23 14:24 Oxygen Delivery Method Room Air 03/04/23 14:24 BMI result Body Mass Index 29.4 Tobacco/Smoking Status: Tobacco use Status Tobacco use date assessed 03/04/23 03/04/23 14:30 Patient Tobacco Use Status Never used Tobacco 03/04/23 14:30 e-Cigarette/Vaping Use Never Used 03/04/23 14:30 PHQ-9: PHQ-9 Score PHQ-9: Total score 4 03/04/23 14:50 Depression Screening Interpretation: Positive Depression Screening Follow-up: Existing condition and In treatment Thrive Assessment: Date of Thrive Assessment Date Thrive assessed 03/04/23 03/04/23 14:30 Currently or been in a relationship where the following occur: no concerns reported Results Reviewed Results Reviewed: Laboratory Tests 02/21/23 11:25 WBC 7.7 Hgb 15.8 Hct 46.6 Plt Count 195 Sodium 141 Potassium 4.8 Creatinine 1.49 H Estimated GFR 51 Fasting Glucose 96 Hemoglobin A1c % 5.3 Calcium 9.6 AST 23 ALT 22 Triglycerides 77 Cholesterol 169 LDL Cholesterol, Calc 108 H HDL Cholesterol 46 25-OH Vitamin D Total 39.0 TSH 1.94 Assessment and Plan Assessment & Plan (1) Benign essential hypertension: Code(s): I10 - Essential (primary) hypertension Plan: Reinforced low sodium diet - goal is systolic BP of 120 mm or less Continue Lisinopril 10 mg QD (2) Pure hypercholesterolemia: Code(s): E78.00 - Pure hypercholesterolemia, unspecified Plan: Results of his labs done a couple of weeks ago reviewed and discussed with patient Reinforced low cholesterol diet Continue Atorvastatin 10 mg QD Will recheck his labs and fasting lipids in 3 months for follow-up (3) Chronic kidney disease (CKD), stage III (moderate): Code(s): N18.30 - Chronic kidney disease, stage 3 unspecified Qualifiers: Chronic kidney disease stage 3 subtype: stage 3a (GFR 45-59) Qualified Code(s): N18.31 - Chronic kidney disease, stage 3a Plan: GFR and renal function again appears stable on his recent labs - will continue to monitor closely Renal US done last year came out normal, with small right renal cysts - no follow up imaging studies required Patient is encouraged to continue to increase his oral fluid intake consistently Follow up with nephrology as scheduled (4) Impaired fasting glucose: Code(s): R73.01 - Impaired fasting glucose Plan: HgbA1c was normal at 5.3% on his labs done a couple of weeks ago; HgbA1c was also at 5.3% previously Reinforced low calorie diet/exercise as tolerated (5) Lumbar degenerative disc disease: Code(s): M51.36 - Other intervertebral disc degeneration, lumbar region Plan: S/P anterior lumbar interbody fusion of L5-S1 by Dr. Philip on 11/24/2020 Reinforced activity and weight lifting restrictions Continue Oxycodone 10 mg every 6 hours as needed for increased pain, 28 days, #112 tablets, refills 0 - Rx refilled Patient cautioned again to avoid all NSAIDs completely as they can adversely affect his renal function (6) Bilateral carpal tunnel syndrome: Code(s): G56.03 - Carpal tunnel syndrome, bilateral upper limbs Plan: S/P right wrist tendon repair by Dr. Moyer on 09/08/2020 for rupture of ligament of the right wrist and more recently, S/P proximal row carpectomy on 08/23/22 Follow up with orthopedics as scheduled (7) Migraine: Code(s): G43.909 - Migraine, unspecified, not intractable, without status migrainosus Qualifiers: Intractability: not intractable Migraine type: unspecified Status migrainosus presence: without status migrainosus Qualified Code(s): G43.909 - Migraine, unspecified, not intractable, without status migrainosus Plan: Stable/controlled Continue Topiramate 25 mg Q HS for migraine headache prophylaxis Continue Fioricet 50-325-40 mg 1 tablet 3 to 4 times a day as needed for headaches (8) Thyroid nodule: Code(s): E04.1 - Nontoxic single thyroid nodule Plan: Stable - repeat thyroid US done in March 2021 came out normal; will consider getting a follow up US in 3 years (03/2024) Was last seen by endocrinology (Dr. Antunez) in March 2018 and recommended repeat TFTs every few months for follow up Advised that given the long-term stability of his thyroid nodule, he can just see his PCP for this and no longer needs to follow up with endocrinology on a regular basis unless something changes or something new occurs (9) Benign prostatic hyperplasia with urinary hesitancy: Code(s): N40.1 - Benign prostatic hyperplasia with lower urinary tract symptoms; R39.11 - Hesitancy of micturition Plan: PSA last done last year came out normal Follow up with urology as scheduled (10) Insomnia: Code(s): G47.00 - Insomnia, unspecified Qualifiers: Insomnia type: unspecified Qualified Code(s): G47.00 - Insomnia, unspecified Plan: Sleep hygiene reinforced Continue Zolpidem 10 mg Q HS PRN (11) Anxiety: Code(s): F41.9 - Anxiety disorder, unspecified Plan: Continue Clonazepam 0.5 mg BID PRN (12) Depression: Code(s): F32.9 - Major depressive disorder, single episode, unspecified Qualifiers: Depression Type: unspecified Qualified Code(s): F32.A - Depression, unspecified Plan: Continue Quetiapine 100 mg Q HS and Bupropion ER 150 mg QD Follow up with psychiatry as scheduled (13) Overweight (BMI 25.0-29.9): Code(s): E66.3 - Overweight Plan: Reinforced diet/exercise as tolerated/lose weight Plan Follow up in 3 months Orders: Orders Complete Blood Count Auto Diff 3 Months I10 - Essential (primary) hypertension Lipid Panel 3 Months E78.00 - Pure hypercholesterolemia, unspecified Hemoglobin A1c 3 Months R73.01 - Impaired fasting glucose Comprehensive [place]. Panel Fast 3 Months E78.00 - Pure hypercholesterolemia, unspecified UA CC w/rflx Micro + Cult 3 Months R30.0 - Dysuria Vitamin D 25-OH Total 3 Months E55.9 - Vitamin D deficiency, unspecified Medications: Refilled oxycodone 10 mg PO Q6H 28 days PRN 112 tabs 0RF pain M51.36 - Other intervertebral disc degeneration, lumbar region Coding Level of Care Code Est Pt Level 4 (16309) Diagnoses Benign essential hypertension I10 Pure hypercholesterolemia E78.00 Stage 3a chronic kidney disease N18.31 Chronic kidney disease stage 3 subtype: stage 3a (GFR 45-59) Impaired fasting glucose R73.01 Lumbar degenerative disc disease M51.36 Bilateral carpal tunnel syndrome G56.03 Migraine without status migrainosus, not intractable, unspecified migraine type G43.909 Intractability: not intractable Migraine type: unspecified Status migrainosus presence: without status migrainosus Thyroid nodule E04.1 Benign prostatic hyperplasia with urinary hesitancy N40.1; R39.11 Insomnia, unspecified type G47.00 Insomnia type: unspecified Anxiety F41.9 Depression, unspecified depression type F32.A Depression Type: unspecified Overweight (BMI 25.0-29.9) E66.3
== END 2023-03-04 14:55 | disposition home or self-care (01) ==
PROVIDERS: PCP Internal Medicine; Visit Provider Internal Medicine
DX: I12.9 Hypertensive chronic kidney disease with stage 1 through stage 4 chronic kidney disease, or unspecified chronic kidney disease (principal); E78.00 Pure hypercholesterolemia, unspecified; N18.31 Chronic kidney disease, stage 3a; R73.01 Impaired fasting glucose; M51.36 Other intervertebral disc degeneration, lumbar region; G56.03 Carpal tunnel syndrome, bilateral upper limbs; G43.909 Migraine, unspecified, not intractable, without status migrainosus; E04.1 Nontoxic single thyroid nodule; N40.1 Benign prostatic hyperplasia with lower urinary tract symptoms; R39.11 Hesitancy of micturition; G47.00 Insomnia, unspecified; F41.9 Anxiety disorder, unspecified
CPT/HCPCS: 99214

== ENCOUNTER 2023-03-24 13:52 | Outpatient (AMB) | payer OTHER, SELFPAY ==
[2023-03-24 13:58] VITALS: BP 132/84; PULSE 71; O2SAT 95; BMI 29.4
--- NOTE | 2023-03-24 13:58 | HO.NEPHOV ---
HPI HPI Comments History of Present Illness Details 47-year-old man with a history of longstanding hypertension nephrolithiasis here for follow-up. He has mild CKD. Serum creatinine is between 1.3 and 1.4 mg/dL. Today has no new complaints. Lisinopril was discontinued last visit however there has been no improvement in the creatinine. [facility] Medical History (Updated 03/24/23 @ 14:40 by Jose Lynch MD) Status post proximal row carpectomy of wrist (~08/23/22) Chronic kidney disease (CKD), stage III (moderate) Rupture of ligament of wrist Renal insufficiency Vitamin D deficiency Overweight (BMI 25.0-29.9) Depression Anxiety Insomnia Benign prostatic hyperplasia Bilateral carpal tunnel syndrome Thyroid nodule Migraine Impaired fasting glucose Pure hypercholesterolemia Benign essential hypertension Lumbar degenerative disc disease Surgical History (Updated 03/24/23 @ 14:40 by Jose Lynch MD) History of lumbosacral spine surgery (~11/24/20) History of surgery on right wrist (~02/07/20) S/P lumbar and lumbosacral fusion by anterior technique (~11/24/20) History of surgery Deficient knowledge of spinal cord stimulator S/P aneurysm repair History of knee replacement procedure of right knee History of hemorrhoidectomy History of bladder surgery Family History Father Medical history unknown Mother Diabetes Hypertension Social History Housing: House Alcohol intake: former Patient Tobacco Use Status: Never used Tobacco e-Cigarette/Vaping Use: Never Used Second Hand Smoke Exposure: Yes service: No Current occupational status: unemployed Cognitive needs: No Hearing needs: No Vision needs: No Vital Signs 03/24/23 13:58 Height 5 ft 9 in Weight 199 lb 2 oz BMI 29.4 BP 132/84 Blood Pressure Location Lt brachial Position Sitting Pulse 71 Pulse Source Pulse Oximeter Pulse Oximetry (%) 95 Oxygen Delivery Method Room Air Physical Exam Vital Signs: Last Vital Signs Pulse 71 03/24/23 13:58 BP 132/84 03/24/23 13:58 Pulse Ox 95 03/24/23 13:58 Oxygen Delivery Method Room Air 03/24/23 13:58 BMI result Body Mass Index 29.4 Const General: comfortable Nutritional Appearance: well nourished Orientation/consciousness: patient oriented x3 HEENT Head: No normal to inspection Mouth: moist mucous membranes Neck Neck: Yes supple and Yes no JVD Resp Auscultation: clear to auscultation bilaterally, no rales and rub present Cardio Jugular venous distension: no JVD Palpation: no palpable S3 and no palpable S4 Heart sounds: no rubs GI Palpation (GI): Soft to palpation and nontender Percussion: No Fluid wave present General: Yes no CVA tenderness Back/Spine/Pelvis Back: no CVA tenderness Skin General skin exam: no rashes or lesions noted Neuro General: patient oriented x3 Extrem General: Yes no pedal edema and No clubbing Assessment & Plan Assessment & Plan (1) Chronic kidney disease (CKD), stage III (moderate): Code(s): N18.30 - Chronic kidney disease, stage 3 unspecified Qualifiers: Chronic kidney disease stage 3 subtype: stage 3a (GFR 45-59) Qualified Code(s): N18.31 - Chronic kidney disease, stage 3a (2) Nephrolithiasis: Code(s): N20.0 - Calculus of kidney Plan 47-year-old man is status CKD in setting of longstanding hypertension and there nephrolithiasis. There is serum creatinine fluctuates between 1.3 and 1.5 mg . For now I will hold off on using any RICHY inhibitors. Encouraged him to increase p.o. fluid intake. No evidence of any obstruction. Urine sediments with bland and no significant proteinuria in the past. Shall continue monitor for the same. Orders: Orders Blood Urea Nitrogen 3 Months N18.30 - Chronic kidney disease, stage 3 unspecified Calcium 3 Months N18.30 - Chronic kidney disease, stage 3 unspecified Total Protein Urine Random 3 Months N18.30 - Chronic kidney disease, stage 3 unspecified Sodium Urine Random 3 Months N18.30 - Chronic kidney disease, stage 3 unspecified UA and rflx microscopic 3 Months N18.30 - Chronic kidney disease, stage 3 unspecified Electrolytes 3 Months N18.30 - Chronic kidney disease, stage 3 unspecified Creatinine 3 Months N18.30 - Chronic kidney disease, stage 3 unspecified Creatinine Urine 3 Months N18.30 - Chronic kidney disease, stage 3 unspecified Medications: Discontinued lisinopril Discontinued Reason: Doctor's Order 10 mg PO DAILY 90 tabs 1RF Coding Level of Care Code Est Pt Level 3 (46866) Diagnoses Stage 3a chronic kidney disease N18.31 Chronic kidney disease stage 3 subtype: stage 3a (GFR 45-59) Nephrolithiasis N20.0 Results Reviewed Nephrology Results: Hgb 15.8 g/dl (14.0-18.0) 02/21/23 WBC 7.7 X10*3/uL (4.8-10.8) 02/21/23 Plt Count 195 X10*3/uL (160-400) 02/21/23 Sodium 141 mmol/L (135-145) 02/21/23 Potassium 4.8 mmol/L (3.3-5.1) 02/21/23 Chloride 104 mmol/L (96-108) 02/21/23 Carbon Dioxide 31 mmol/L (22-29) H 02/21/23 BUN 13 mg/dL (9-16) 02/21/23 Creatinine 1.49 mg/dL (0.5-1.4) H 02/21/23 Calcium 9.6 mg/dL (8.4-10.2) 02/21/23 Urine Protein Negative mg/dL (Neg-Trace) 08/17/22
== END 2023-03-24 14:12 | disposition home or self-care (01) ==
PROVIDERS: PCP Internal Medicine; Visit Provider Internal Medicine Hypertension Specialist
DX: N18.31 Chronic kidney disease, stage 3a (principal); N20.0 Calculus of kidney
CPT/HCPCS: 99213

== ENCOUNTER → 2023-03-24 13:52 | Outpatient (BNVA) | payer OTHER, SELFPAY | PROVIDERS: PCP Internal Medicine; Visit Provider Internal Medicine Hypertension Specialist | DX: N18.31 Chronic kidney disease, stage 3a (principal); N20.0 Calculus of kidney | CPT/HCPCS: 99212 ==

== ENCOUNTER 2023-03-28 10:33 | Outpatient (REF) | payer OTHER, SELFPAY | END 2023-03-28 10:34 | disposition home or self-care (01) | LOC: HO.LAB 10:33 | PROVIDERS: PCP Internal Medicine; Visit Provider Urology | DX: N40.1 Benign prostatic hyperplasia with lower urinary tract symptoms (principal) | CPT/HCPCS: 36415; 84153 ==

== ENCOUNTER 2023-03-30 13:41 | Outpatient (AMB) | payer OTHER, SELFPAY ==
--- NOTE | 2023-03-30 14:13 | A.OFFVIS_ITS ---
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 03/30/23-- Demetris is a 47-year-old male wh o presents to the office as a FU for lower urinary tract symptoms. The patient has significant medical history of hypertension, Anxiety, CKD, followed by Nephrology. The patient is Yoruba speaking male. Certified parts interpreter is present during the visit. Denies family history of prostate cancer. The patient's father does not have any prostate issues. Currently he is advised on behaviorial modification, currently not on bladder meds, he was prescribed flomax but had SE of runny nose. He denies dysuria or hematuria, feels urinary flow is good. I have reviewed PSA results 03/28/23-- 0.30 UA: Neg blood Review of chart: Results: creatinine levels were 05/18/22--1.38 and 05/25/22--1.47. Renal US results reviewed?12/31/2021-- Suggestive of right renal simple appearing cysts measuring up to 2.8 cm Plan: PSA screening, FU one year. Cont Behaviorial modification, limit caffeine intake PFSH Medical History Status post proximal row carpectomy of wrist (~08/23/22) Chronic kidney disease (CKD), stage III (moderate) Rupture of ligament of wrist Renal insufficiency Vitamin D deficiency Overweight (BMI 25.0-29.9) Depression Anxiety Insomnia Benign prostatic hyperplasia Bilateral carpal tunnel syndrome Thyroid nodule Migraine Impaired fasting glucose Pure hypercholesterolemia Benign essential hypertension Lumbar degenerative disc disease Surgical History History of lumbosacral spine surgery (~11/24/20) History of surgery on right wrist (~02/07/20) S/P lumbar and lumbosacral fusion by anterior technique (~11/24/20) History of surgery Deficient knowledge of spinal cord stimulator S/P aneurysm repair History of knee replacement procedure of right knee History of hemorrhoidectomy History of bladder surgery Family History Father Medical history unknown Mother Diabetes Hypertension Social History Housing: House Alcohol intake: former Patient Tobacco Use Status: Never used Tobacco e-Cigarette/Vaping Use: Never Used Second Hand Smoke Exposure: Yes service: No Current occupational status: unemployed Cognitive needs: No Hearing needs: No Vision needs: No Review of Systems Const All systems reviewed & are unremarkable except as noted in HPI and below Reports no additional complaints Eyes Reports no additional complaints ENT Reports no additional complaints Card Denies dyspnea Resp Denies cough and Denies dyspnea GI Reports no additional complaints Musc Reports no additional complaints Skin/Breast Denies rash and Denies unusual bruising Neuro Reports no additional complaints Psych Reports no additional complaints Endo Reports no additional complaints Vel/Lymph Reports no additional complaints Aller/Immun Reports no additional complaints Results AMB Urinalysis, Automated UA Leukoctes 0 Patricia/uL Last Edit by TETE Florez on 03/30/23 14:17 UA Nitrite Negative Last Edit by TETE Florez on 03/30/23 14:17 UA Urobilinogen 0.2 mg/dL Last Edit by TETE Florez on 03/30/23 14:1 7 UA Protein 15 mg/dL Last Edit by TETE Florez on 03/30/23 14:17 UA pH 7.0 Last Edit by TETE Florez on 03/30/23 14:17 UA Blood 0 Christopher/uL Last Edit by TETE Florez on 03/30/23 14:17 UA Specific [place] 1.015 Last Edit by TETE Florez on 03/30/23 14: 17 UA Ketone Negative Last Edit by TETE Florez on 03/30/23 14:17 UA Bilirubin 0 mg/dL Last Edit by TETE Florez on 03/30/23 14:17 UA Glucose 0 mg/dL Last Edit by TETE Florez on 03/30/23 14:17 Results Reviewed Results Reviewed: Laboratory Last Values Urine pH (Auto) 7.0 03/30/23 14:16 Specific [place] (Auto) 1.015 03/30/23 14:16 Urine Protein (Auto) 15 mg/dL 03/30/23 14:16 Glucose (UA)(Auto) 0 mg/dL 03/30/23 14:16 Urine Ketones (Auto) Negative 03/30/23 14:16 Urine Blood (Auto) 0 Hcristopher/uL 03/30/23 14:16 Urine Nitrite (Auto) Negative 03/30/23 14:16 Urine Bilirubin (Auto) 0 mg/dL 03/30/23 14:16 Urine Urobilinogen (Auto) 0.2 mg/dL 03/30/23 14:16 Leukocyte Esterase (Auto) 0 Patricia/uL 03/30/23 14:16 Assessment & Plan Assessment & Plan (1) Screening PSA (prostate specific antigen): Code(s): Z12.5 - Encounter for screening for malignant neoplasm of prostate (2) Urinary urgency: Code(s): R39.15 - Urgency of urination Plan PSA screening, FU one year. Cont Behaviorial modification, limit caffeine intake Orders: Orders Prostate Specific Antigen 03/28/23 N40.1 - Benign prostatic hyperplasia with lower urinary tract symptoms AMB Urinalysis Automated Today Z13.9 - Encounter for screening, unspecified PSA,Total (Free>4and<10) 11 Months Z12.5 - Encounter for screening for malignant neoplasm of prostate Patient Instructions: The patient had an opportunity to ask questions regarding treatment plan. All questions were answered. Imaging, Laboratory studies and physical exam results were discussed and reviewed in detail. No major barriers to understanding were identified. The patient expressed understanding and agreement with the above treatment plan. The patient is aware they should contact our office by phone for worsening of their current condition or the appearance of new symptoms. Compliance is encouraged with any medications and followup testing that is ordered. It is a privilege to be allowed the opportunity to participate in the urologic care of your patient. If you have any questions or concerns regarding treatment for the above conditions please do not hesitate to contact me. The office telephone contact is [phone]. This note is constructed in part using voice recognition software. While every effort has been made to ensure accuracy field contact technician errors may have been included. Yours sincerely, Franky Haas MD Coding Level of Care Code Est Pt Level 3 (79767) Diagnoses Screening PSA (prostate specific antigen) Z12.5 Urinary urgency R39.15
== END 2023-03-30 14:47 | disposition home or self-care (01) ==
PROVIDERS: PCP Internal Medicine; Visit Provider Urology
DX: Z12.5 Encounter for screening for malignant neoplasm of prostate (principal); R39.15 Urgency of urination; Z13.9 Encounter for screening, unspecified
CPT/HCPCS: 99213

== ENCOUNTER → 2023-03-30 13:41 | Outpatient (BNVA) | payer OTHER, SELFPAY | PROVIDERS: PCP Internal Medicine; Visit Provider Urology | DX: Z12.5 Encounter for screening for malignant neoplasm of prostate (principal); R39.15 Urgency of urination | CPT/HCPCS: 81003; 99212 ==

== ENCOUNTER 2023-06-15 09:49 | Outpatient (REF) | payer OTHER, SELFPAY ==
[2023-06-15 10:29] LABS: Basophils Percent Auto 0.3 % (0-2); Eosinophils Absolute Auto 0.2 X10*3/uL (0.0-0.4); Eosinophils Percent Auto 2.3 % (0-4); Hemoglobin 15.4 g/dl (14.0-18.0); Imm Gran Abs Auto 0.12 X10*3/uL (0.00-0.03); Imm Gran Pct Auto 1.4 % (0.0-0.4); Lymphocytes Absolute Auto 1.6 X10*3/uL (1.2-4.9); Lymphocytes Percent Auto 17.9 % (20-40); MANUAL DIFF FLAG NO; Mean Corpuscular HGB Conc 34.2 g/dl (31.0-36.0); Mean Corpuscular Hemoglobin 30.6 pg (27.0-33.0); Mean Corpuscular Volume 89.3 fL (80.0-98.0); Monocytes Absolute Auto 0.7 X10*3/uL (0.1-1.2); Monocytes Percent Auto 7.7 % (2-11); Neutrophils Absolute Auto 6.1 x10*3/uL (2.0-8.3); Neutrophils Percent Auto 70.4 % (45-73); Platelet Count 197 X10*3/uL (160-400); Red Blood Count 5.04 X10*6/uL (4.60-5.80); Red Cell Distribution Width 12.1 % (11.0-16.0); White Blood Count 8.7 X10*3/uL (4.8-10.8)
[2023-06-15 11:18] LABS: Alanine Aminotransferase 20 U/L (0-40); Albumin Level 4.4 g/dL (3.5-5.0); Alkaline Phosphatase 84 U/L (39-117); Anion Gap 9 (12-20); Aspartate Amino Transferase 17 U/L (5-37); Bilirubin Total 0.8 mg/dL (0.0-1.0); Blood Urea Nitrogen 15 mg/dL (9-16); Calcium 9.7 mg/dL (8.4-10.2); Carbon Dioxide 30 mmol/L (22-29); Chloride 105 mmol/L (96-108); Cholesterol 173 mg/dL (<200); Estimated Glomerular Filt Rate 55; Glucose Fasting 103 mg/dL (60-99); HDL Cholesterol 49 mg/dL (>40); LDL Cholesterol Calculated 108 mg/dL (<100); Potassium 3.8 mmol/L (3.3-5.1); Sodium 140 mmol/L (135-145); Triglycerides 80 mg/dL (<150)
[2023-06-15 11:32] LABS: Vitamin D 25-OH Total 38.1 ng/mL (>30)
[2023-06-15 12:06] LABS: Estimated Average Glucose 108 mg/dL; Hemoglobin A1c % 5.4 % (<6.0)
== END 2023-06-15 09:50 | disposition home or self-care (01) ==
LOC: HO.LAB 09:49
PROVIDERS: PCP Internal Medicine; Visit Provider Internal Medicine
DX: I12.9 Hypertensive chronic kidney disease with stage 1 through stage 4 chronic kidney disease, or unspecified chronic kidney disease (principal); N18.30 Chronic kidney disease, stage 3 unspecified; R30.0 Dysuria; E55.9 Vitamin D deficiency, unspecified; E78.00 Pure hypercholesterolemia, unspecified; R73.01 Impaired fasting glucose
CPT/HCPCS: 36415; 80053; 80061; 82306; 83036; 85025

== ENCOUNTER 2023-06-20 13:38 | Outpatient (AMB) | payer OTHER, SELFPAY ==
--- NOTE | 2023-06-20 13:41 | A.OFFPC_ITS ---
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: No Allergies gabapentin Allergy (Unknown, Verified 06/23/23 13:38) trouble swallowing, swelling Medication List - Last Reconciled 06/20/23 by Desmond Montelongo MD atorvastatin 10 mg PO DAILY bupropion HCl 150 mg PO QAM qgplblqkgq-hcwcbkerozxix-olko 50-325-40 mg 1 cap PO ONCE PRN cholecalciferol (vitamin D3) (Vitamin D3) 25 mcg PO DAILY clonazepam 0.25 mg PO BID cyclobenzaprine 10 mg PO TID PRN hydrocortisone 1% (Anti-Itch (hydrocortisone)) 1 appl topical TID PRN oxycodone 10 mg PO Q6H PRN 28 days quetiapine 100 mg PO BEDTIME tadalafil (Cialis) 20 mg PO DAILY PRN topiramate 25 mg PO DAILY zolpidem 10 mg PO BEDTIME PRN Tobacco use date assessed: 06/20/23 Dental Screening Dental Screen Date: 06/20/23 HPI 3 month f/u HPI Details Patient comes in today for his follow up visit States that he feels okay He denies any headaches or dizziness Denies any chest pains, no SOB No nausea/vomiting, no abdominal pain No change in bowel habits noted States that his chronic low back pain and joint pains remain adequately controlled on his current Rx He had his follow up labs done last week - to discuss his results [facility] Medical History Status post proximal row carpectomy of wrist (~08/23/22) Chronic kidney disease (CKD), stage III (moderate) Rupture of ligament of wrist Renal insufficiency Vitamin D deficiency Overweight (BMI 25.0-29.9) Depression Anxiety Insomnia Benign prostatic hyperplasia Bilateral carpal tunnel syndrome Thyroid nodule Migraine Impaired fasting glucose Pure hypercholesterolemia Benign essential hypertension Lumbar degenerative disc disease Surgical History History of lumbosacral spine surgery (~11/24/20) History of surgery on right wrist (~02/07/20) S/P lumbar and lumbosacral fusion by anterior technique (~11/24/20) History of surgery Deficient knowledge of spinal cord stimulator S/P aneurysm repair History of knee replacement procedure of right knee History of hemorrhoidectomy History of bladder surgery Family History Father Medical history unknown Mother Diabetes Hypertension Social History Housing: House Alcohol intake: former Patient Tobacco Use Status: Never used Tobacco e-Cigarette/Vaping Use: Never Used Second Hand Smoke Exposure: Yes service: No Current occupational status: unemployed Cognitive needs: No Hearing needs: No Vision needs: No Questionnaire PHQ-9 Over the last 2 weeks, how often have you been bothered by any of the following problems? 1. Little interest or pleasure in doing things: several days 2. Feeling down, depressed, or hopeless: several days 3. Trouble falling or staying asleep, or sleeping too much: several days 4. Feeling tired or having little energy: several days 5. Poor appetite or overeating: not at all 6. Feeling bad about yourself - or that you are a failure or have let yourself or your family down: not at all 7. Trouble concentrating on things, such as reading the newspaper or watching television: not at all 8. Moving or speaking so slowly that other people could have noticed. Or the opposite - being so fidgety or restless that you have been moving around a lot more than usual: not at all 9. Thoughts that you would be better off or of hurting yourself in some way: not at all Total score: 4 Depression Screening Interpretation: Positive Depression Screening Follow-up: Existing condition and In treatment Depression Screening Done: Yes 21227 - PHQ-9 Billing: Yes Source: Developed by Drs. Job Pleitez, Pat Murry, Simon Mejía and colleagues, with an educational delicia from [employer]. Thrive Questionnaire Date Thrive assessed: 06/20/23 I am a: Patient What is your living situation today?: I have a place to live, but I am worried about losing it in the future Within the past 12 months, did the food you bought not last and you didn't have the money to get more?: Never true Within the past 12 months, did you worry whether your food would run out before you got money to buy more?: Never true Do you have trouble paying for medicines?: No Do you have trouble getting transportation to medical appointments?: No Do you have trouble paying your heating and electricity bill?: No Do you have trouble taking care of your child, family member or friend?: No Do you have trouble with day-to-day activities such as bathing, preparing meals, shopping, managing finances, etc.?: No Are you currently unemployed and looking for a job?: No Are you interested in more education?: No Please select the resources that you would like help with: None Currently or been in a relationship where the following occur: no concerns reported THRIVE Score: 1 AUDIT C Alcohol Use Questionnaire (AUDIT-C) 1. How often do you have a drink containing alcohol?: Never 3. How often do you have six or more drinks on one occasion?: Never Total Score: 0 Score Reviewed/Action Taken: Yes KARINA-7 AMB Questionnaire KARINA-7 Date KARINA - 7 assessed: 06/20/23 Source: Developed by Drs. Job Pleitez, Pat Murry, Simon Mejía and colleagues, with an educational delicia from [employer]. Review of Systems Const Denies fatigue, Denies fever(s) and Denies headache(s) ENT Denies dysphagia, Denies dizziness, Denies otalgia, Denies headache(s), Denies odynophagia and Denies sore throat Card Denies chest pain, Denies palpitations and Denies dyspnea Resp Denies cough, Denies dyspnea and Denies wheezing GI Denies abdominal pain, Denies constipation, Denies dysphagia, Denies heartburn, Denies diarrhea, Denies nausea, Denies odynophagia and Denies vomiting Denies dysuria, Denies nocturia and Denies urinary frequency Musc Reports back pain (over the lumbar spine - chronic) and Reports arthralgias (right wrist - slightly better since surgery on 08/23/22) Skin/Breast Denies rash Neuro Denies dizziness and Denies headache(s) Endo Denies fatigue and Denies palpitations Aller/Immun Denies wheezing Physical exam (Primary Care) Vital Signs: Last Vital Signs Pulse 71 06/20/23 13:42 BP 132/86 06/20/23 13:42 Pulse Ox 97 06/20/23 13:42 Oxygen Delivery Method Room Air 06/20/23 13:42 BMI result Body Mass Index 29.2 Tobacco/Smoking Status: Tobacco use Status Tobacco use date assessed 06/20/23 06/20/23 13:43 Patient Tobacco Use Status Never used Tobacco 06/20/23 13:43 e-Cigarette/Vaping Use Never Used 06/20/23 13:43 PHQ-9: PHQ-9 Score PHQ-9: Total score 4 06/20/23 14:46 Depression Screening Interpretation: Positive Depression Screening Follow-up: Existing condition and In treatment Thrive Assessment: Date of Thrive Assessment Date Thrive assessed 06/20/23 06/20/23 13:43 Currently or been in a relationship where the following occur: no concerns reported Const General: no acute distress and alert HENMT Ears: TM's normal bilaterally and EAC's normal Throat: Yes posterior oropharynx normal and Yes tonsils normal (no TP congestion noted) Neck Neck: Yes no lymphadenopathy and Yes supple Thyroid: Thyroid normal Resp Auscultation: clear to auscultation bilaterally, no rales and no wheezes Cardio Rate: regular rate Rhythm: regular rhythm Heart sounds: no murmurs GI Palpation (GI): Soft to palpation and nontender Auscultation: normal bowel sounds General: Yes no CVA tenderness Back/Spine/Pelvis Back: no CVA tenderness Thoracic/Lumbar Spine: lumbar spinal tenderness Skin Rashes: no rashes Extrem General: Yes no clubbing, cyanosis or edema Results Reviewed Results Reviewed: Laboratory Tests 02/21/23 06/15/23 06/15/23 11:25 09:56 Unknown WBC 8.7 Hgb 15.4 Hct 45.0 Plt Count 197 Sodium 140 Potassium 3.8 Creatinine 1.38 Estimated GFR 55 Fasting Glucose 103 H Hemoglobin A1c % 5.4 Calcium AST ALT 20 Triglycerides 80 Cholesterol 173 LDL Cholesterol, Calc 108 H HDL Cholesterol 49 25-OH Vitamin D Total 38.1 TSH 1.94 06/15/23 Unknown WBC Hgb Hct Plt Count Sodium Potassium Creatinine Estimated GFR Fasting Glucose Hemoglobin A1c % Calcium 9.7 AST 17 ALT Triglycerides Cholesterol LDL Cholesterol, Calc HDL Cholesterol 25-OH Vitamin D Total TSH Assessment and Plan Assessment & Plan (1) Pure hypercholesterolemia: Code(s): E78.00 - Pure hypercholesterolemia, unspecified Plan: Results of his labs done last week reviewed and discussed with patient Reinforced low cholesterol diet Continue Atorvastatin 10 mg QD Will recheck his labs and fasting lipids in 3 months for follow-up (2) Benign essential hypertension: Code(s): I10 - Essential (primary) hypertension Plan: Reinforced low sodium diet - goal is systolic BP of 120 mm or less Continue Lisinopril 10 mg QD (3) Chronic kidney disease (CKD), stage III (moderate): Code(s): N18.30 - Chronic kidney disease, stage 3 unspecified Qualifiers: Chronic kidney disease stage 3 subtype: stage 3a (GFR 45-59) Qualified Code(s): N18.31 - Chronic kidney disease, stage 3a Plan: GFR and renal function again appears stable on his recent labs - will continue to monitor closely Renal US done last year came out normal, with small right renal cysts - no follow up imaging studies required Patient is encouraged to continue to increase his oral fluid intake consistently Follow up with nephrology as scheduled (4) Impaired fasting glucose: Code(s): R73.01 - Impaired fasting glucose Plan: HgbA1c remains normal at 5.4% on his labs done last week; HgbA1c was at 5.3% a few months ago Reinforced low calorie diet/exercise as tolerated (5) Lumbar degenerative disc disease: Code(s): M51.36 - Other intervertebral disc degeneration, lumbar region Plan: S/P anterior lumbar interbody fusion of L5-S1 by Dr. Philip on 11/24/2020 Reinforced activity and weight lifting restrictions Continue Oxycodone 10 mg every 6 hours as needed for increased pain, 28 days, #112 tablets, refills 0 Patient cautioned again to avoid all NSAIDs completely as they can adversely affect his renal function (6) Bilateral carpal tunnel syndrome: Code(s): G56.03 - Carpal tunnel syndrome, bilateral upper limbs Plan: S/P right wrist tendon repair by Dr. Moyer on 09/08/2020 for rupture of ligament of the right wrist and more recently, S/P proximal row carpectomy on 08/23/22 Follow up with orthopedics as scheduled (7) Migraine: Code(s): G43.909 - Migraine, unspecified, not intractable, without status migrainosus Qualifiers: Intractability: not intractable Migraine type: unspecified Status migrainosus presence: without status migrainosus Qualified Code(s): G43.909 - Migraine, unspecified, not intractable, without status migrainosus Plan: Stable/controlled Continue Topiramate 25 mg Q HS for migraine headache prophylaxis Continue Fioricet 50-325-40 mg 1 tablet 3 to 4 times a day as needed for headaches (8) Thyroid nodule: Code(s): E04.1 - Nontoxic single thyroid nodule Plan: Stable - repeat thyroid US done in March 2021 came out normal; will consider getting a follow up US in 3 years (03/2024) Was last seen by endocrinology (Dr. Antunez) in March 2018 and recommended repeat TFTs every few months for follow up Advised that given the long-term stability of his thyroid nodule, he can just see his PCP for this and no longer needs to follow up with endocrinology on a regular basis unless something changes or something new occurs Reassured that his TFTs were normal on his recent labs (9) Benign prostatic hyperplasia with urinary hesitancy: Code(s): N40.1 - Benign prostatic hyperplasia with lower urinary tract symptoms; R39.11 - Hesitancy of micturition Plan: PSA last done last year came out normal Follow up with urology as scheduled (10) Insomnia: Code(s): G47.00 - Insomnia, unspecified Qualifiers: Insomnia type: unspecified Qualified Code(s): G47.00 - Insomnia, unspecified Plan: Sleep hygiene reinforced Continue Zolpidem 10 mg Q HS PRN (11) Anxiety: Code(s): F41.9 - Anxiety disorder, unspecified Plan: Continue Clonazepam 0.5 mg BID PRN (12) Depression: Code(s): F32.9 - Major depressive disorder, single episode, unspecified Qualifiers: Depression Type: unspecified Qualified Code(s): F32.A - Depression, unspecified Plan: Continue Quetiapine 100 mg Q HS and Bupropion ER 150 mg QD Follow up with psychiatry as scheduled (13) Overweight (BMI 25.0-29.9): Code(s): E66.3 - Overweight Plan: Reinforced diet/exercise as tolerated/lose weight Plan Follow up in 3 months Orders: Orders Complete Blood Count Auto Diff 3 Months D64.9 - Anemia, unspecified Lipid Panel 3 Months E78.00 - Pure hypercholesterolemia, unspecified Hemoglobin A1c 3 Months R73.01 - Impaired fasting glucose Comprehensive [place]. Panel Fast 3 Months E78.00 - Pure hypercholesterolemia, unspecified TSH reflex Free T4 3 Months E78.00 - Pure hypercholesterolemia, unspecified UA CC w/rflx Micro + Cult 3 Months R30.0 - Dysuria Vitamin D 25-OH Total 3 Months E55.9 - Vitamin D deficiency, unspecified Coding Level of Care Code Est Pt Level 4 (22312) Diagnoses Pure hypercholesterolemia E78.00 Benign essential hypertension I10 Stage 3a chronic kidney disease N18.31 Chronic kidney disease stage 3 subtype: stage 3a (GFR 45-59) Impaired fasting glucose R73.01 Lumbar degenerative disc disease M51.36 Bilateral carpal tunnel syndrome G56.03 Migraine without status migrainosus, not intractable, unspecified migraine type G43.909 Intractability: not intractable Migraine type: unspecified Status migrainosus presence: without status migrainosus Thyroid nodule E04.1 Benign prostatic hyperplasia with urinary hesitancy N40.1; R39.11 Insomnia, unspecified type G47.00 Insomnia type: unspecified Anxiety F41.9 Depression, unspecified depression type F32.A Depression Type: unspecified Overweight (BMI 25.0-29.9) E66.3
[2023-06-20 13:42] VITALS: BP 132/86; PULSE 71; O2SAT 97; BMI 29.2
== END 2023-06-20 14:44 | disposition home or self-care (01) ==
PROVIDERS: PCP Internal Medicine; Visit Provider Internal Medicine
DX: E78.00 Pure hypercholesterolemia, unspecified (principal); I12.9 Hypertensive chronic kidney disease with stage 1 through stage 4 chronic kidney disease, or unspecified chronic kidney disease; N18.31 Chronic kidney disease, stage 3a; R73.01 Impaired fasting glucose; M51.36 Other intervertebral disc degeneration, lumbar region; G56.03 Carpal tunnel syndrome, bilateral upper limbs; G43.909 Migraine, unspecified, not intractable, without status migrainosus; E04.1 Nontoxic single thyroid nodule; N40.1 Benign prostatic hyperplasia with lower urinary tract symptoms; R39.11 Hesitancy of micturition; G47.00 Insomnia, unspecified; F41.9 Anxiety disorder, unspecified
CPT/HCPCS: 99214

== ENCOUNTER → 2023-06-23 13:29 | Outpatient (BNVA) | payer OTHER, SELFPAY | PROVIDERS: PCP Internal Medicine; Visit Provider Internal Medicine Hypertension Specialist | DX: N20.0 Calculus of kidney (principal); N18.31 Chronic kidney disease, stage 3a | CPT/HCPCS: 99212 ==

== ENCOUNTER → 2023-06-23 13:53 | Outpatient (AMB) | payer OTHER, SELFPAY ==
[2023-06-23 13:35] VITALS: BP 138/90; PULSE 75; O2SAT 95; BMI 28.6
--- NOTE | 2023-06-23 13:35 | HO.NEPHOV ---
HPI HPI Comments History of Present Illness Details 47-year-old man with a history of longstanding hypertension nephrolithiasis here for follow-up. He has mild CKD. Serum creatinine is between 1.3 and 1.4 mg/dL. Today has no new complaints. Lisinopril was discontinued last visit and creatinine is marginally better [facility] Medical History Status post proximal row carpectomy of wrist (~08/23/22) Chronic kidney disease (CKD), stage III (moderate) Rupture of ligament of wrist Renal insufficiency Vitamin D deficiency Overweight (BMI 25.0-29.9) Depression Anxiety Insomnia Benign prostatic hyperplasia Bilateral carpal tunnel syndrome Thyroid nodule Migraine Impaired fasting glucose Pure hypercholesterolemia Benign essential hypertension Lumbar degenerative disc disease Surgical History History of lumbosacral spine surgery (~11/24/20) History of surgery on right wrist (~02/07/20) S/P lumbar and lumbosacral fusion by anterior technique (~11/24/20) History of surgery Deficient knowledge of spinal cord stimulator S/P aneurysm repair History of knee replacement procedure of right knee History of hemorrhoidectomy History of bladder surgery Family History Father Medical history unknown Mother Diabetes Hypertension Social History Housing: House Alcohol intake: former Patient Tobacco Use Status: Never used Tobacco e-Cigarette/Vaping Use: Never Used Second Hand Smoke Exposure: Yes service: No Current occupational status: unemployed Cognitive needs: No Hearing needs: No Vision needs: No Vital Signs 06/23/23 13:35 06/23/23 13:51 Height 5 ft 9 in Weight 194 lb BMI 28.6 BP 138/90 H 124/80 Blood Pressure Location Rt brachial Rt brachial Position Sitting Sitting Pulse 75 Pulse Source Pulse Oximeter Pulse Oximetry (%) 95 Oxygen Delivery Method Room Air Physical Exam Vital Signs: Last Vital Signs Pulse 75 06/23/23 13:35 BP 138/90 H 06/23/23 13:35 Pulse Ox 95 06/23/23 13:35 Oxygen Delivery Method Room Air 06/23/23 13:35 BMI result Body Mass Index 28.6 Assessment & Plan Assessment & Plan (1) Chronic kidney disease (CKD), stage III (moderate): Code(s): N18.30 - Chronic kidney disease, stage 3 unspecified Qualifiers: Chronic kidney disease stage 3 subtype: stage 3a (GFR 45-59) Qualified Code(s): N18.31 - Chronic kidney disease, stage 3a (2) Nephrolithiasis: Code(s): N20.0 - Calculus of kidney Plan 47-year-old man is status CKD in setting of longstanding hypertension and there nephrolithiasis. Bp is well controlled There is serum creatinine fluctuates between 1.3 and 1.5 mg . For now I will hold off on using any RICHY inhibitors. Encouraged him to increase p.o. fluid intake. No evidence of any obstruction. Urine sediments with bland and no significant proteinuria in the past. Shall continue monitor for the same. Coding Level of Care Code Est Pt Level 4 (75128) Diagnoses Stage 3a chronic kidney disease N18.31 Chronic kidney disease stage 3 subtype: stage 3a (GFR 45-59) Nephrolithiasis N20.0 Results Reviewed Nephrology Results: Hgb 15.4 g/dl (14.0-18.0) 06/15/23 WBC 8.7 X10*3/uL (4.8-10.8) 06/15/23 Plt Count 197 X10*3/uL (160-400) 06/15/23 Sodium 140 mmol/L (135-145) 06/15/23 Potassium 3.8 mmol/L (3.3-5.1) 06/15/23 Chloride 105 mmol/L (96-108) 06/15/23 Carbon Dioxide 30 mmol/L (22-29) H 06/15/23 BUN 15 mg/dL (9-16) 06/15/23 Creatinine 1.38 mg/dL (0.5-1.4) 06/15/23 Calcium 9.7 mg/dL (8.4-10.2) 06/15/23
[2023-06-23 13:51] VITALS: BP 124/80
== END | disposition home or self-care (01) ==
LOC: HO.HKA 13:30
PROVIDERS: PCP Internal Medicine; Visit Provider Internal Medicine Hypertension Specialist
DX: N18.31 Chronic kidney disease, stage 3a (principal); N20.0 Calculus of kidney
CPT/HCPCS: 99214

== ENCOUNTER 2023-09-16 10:02 | Outpatient (REF) | payer OTHER, SELFPAY ==
[2023-09-16 10:27] LABS: MANUAL DIFF FLAG NO
[2023-09-16 11:06] LABS: Basophils Percent Auto 0.4 % (0-2); Eosinophils Absolute Auto 0.2 X10*3/uL (0.0-0.4); Eosinophils Percent Auto 2.6 % (0-4); Hematocrit 44.2 % (42.0-52.0); Hemoglobin 15.5 g/dl (14.0-18.0); Imm Gran Abs Auto 0.04 X10*3/uL (0.00-0.03); Imm Gran Pct Auto 0.6 % (0.0-0.4); Lymphocytes Absolute Auto 1.5 X10*3/uL (1.2-4.9); Mean Corpuscular HGB Conc 35.1 g/dl (31.0-36.0); Mean Corpuscular Hemoglobin 30.9 pg (27.0-33.0); Mean Corpuscular Volume 88.2 fL (80.0-98.0); Mean Platelet Volume 10.4 fL (9.4-12.4); Monocytes Absolute Auto 0.6 X10*3/uL (0.1-1.2); Monocytes Percent Auto 7.9 % (2-11); Neutrophils Absolute Auto 4.9 x10*3/uL (2.0-8.3); Neutrophils Percent Auto 67.5 % (45-73); Platelet Count 193 X10*3/uL (160-400); Red Blood Count 5.01 X10*6/uL (4.60-5.80); Red Cell Distribution Width 12.1 % (11.0-16.0); White Blood Count 7.2 X10*3/uL (4.8-10.8)
[2023-09-16 11:13] LABS: Estimated Average Glucose 111 mg/dL; Hemoglobin A1c % 5.5 % (<6.0)
[2023-09-16 12:20] LABS: Alanine Aminotransferase 27 U/L (0-40); Albumin Level 4.5 g/dL (3.5-5.0); Alkaline Phosphatase 90 U/L (39-117); Anion Gap 12 (12-20); Aspartate Amino Transferase 24 U/L (5-37); Bilirubin Total 0.7 mg/dL (0.0-1.0); Blood Urea Nitrogen 16 mg/dL (9-16); Calcium 9.9 mg/dL (8.4-10.2); Carbon Dioxide 29 mmol/L (22-29); Chloride 106 mmol/L (96-108); Cholesterol 155 mg/dL (<200); Estimated Glomerular Filt Rate 53; Glucose Fasting 93 mg/dL (60-99); HDL Cholesterol 40 mg/dL (>40); LDL Cholesterol Calculated 99 mg/dL (<100); Potassium 4.2 mmol/L (3.3-5.1); Sodium 143 mmol/L (135-145); Triglycerides 84 mg/dL (<150)
[2023-09-16 12:35] LABS: Appearance Urine Clear; Color Urine Yellow; Glucose Urine UA Negative (Negative); Leukocyte Esterase Urine Negative (Negative); Nitrite Urine Negative (Negative); Urine Blood Negative (Negative); Urine Ketones Negative (Negative); Urine Protein Negative (Neg-Trace)
[2023-09-16 12:39] LABS: TSH reflex Free T4 1.59 uIU/mL (0.32-4.0); Vitamin D 25-OH Total 38.8 ng/mL (>30)
== END 2023-09-16 10:03 | disposition home or self-care (01) ==
LOC: HO.LAB 10:02
PROVIDERS: Absent Provider Internal Medicine Hypertension Specialist; PCP Internal Medicine; Visit Provider Internal Medicine
DX: E55.9 Vitamin D deficiency, unspecified (principal); E78.00 Pure hypercholesterolemia, unspecified; R73.01 Impaired fasting glucose; R30.0 Dysuria; D64.9 Anemia, unspecified
CPT/HCPCS: 36415; 80053; 80061; 81003; 82306; 83036; 84443; 85025

== ENCOUNTER 2023-09-21 14:17 | Outpatient (AMB) | payer OTHER, SELFPAY ==
[2023-09-21 14:19] VITALS: BP 136/88; PULSE 71; O2SAT 97; BMI 29.1
--- NOTE | 2023-09-21 14:19 | MHC.PC.OV ---
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 Allergies gabapentin Allergy (Unknown, Verified 10/25/23 13:53) trouble swallowing, swelling Medication List - Last Reconciled 09/21/23 by Desmond Montelongo MD amlodipine 2.5 mg PO DAILY atorvastatin 10 mg PO DAILY bupropion HCl XL 150 mg PO QAM bupropion HCl XL 300 mg PO DAILY afqmxfcrlq-eysbinzledcrl-rwwt 50-325-40 mg 1 cap PO ONCE PRN cholecalciferol (vitamin D3) (Vitamin D3) 25 mcg PO DAILY clonazepam 0.25 mg PO BID cyclobenzaprine 10 mg PO TID PRN hydrocortisone 1% (Anti-Itch (hydrocortisone)) 1 appl topical TID PRN oxycodone 10 mg PO Q6H PRN 28 days quetiapine 200 mg PO BEDTIME sertraline 100 mg PO DAILY tadalafil (Cialis) 20 mg PO DAILY PRN zolpidem 10 mg PO BEDTIME PRN Tobacco use date assessed: 09/21/23 Dental Screening Dental Screen Date: 09/21/23 HPI 3 Month F/U HPI Details Patient comes in today for his follow up visit States that he feels okay and that his chronic low back pain and joint pains remain adequately controlled on his current Rx He denies any headaches or dizziness Denies any chest pains, no SOB No nausea/vomiting, no abdominal pain No change in bowel habits noted He had his follow up labs done last week - to discuss his results [facility] Medical History Status post proximal row carpectomy of wrist (~08/23/22) Chronic kidney disease (CKD), stage III (moderate) Rupture of ligament of wrist Renal insufficiency Vitamin D deficiency Overweight (BMI 25.0-29.9) Depression Anxiety Insomnia Benign prostatic hyperplasia Bilateral carpal tunnel syndrome Thyroid nodule Migraine Impaired fasting glucose Pure hypercholesterolemia Benign essential hypertension Lumbar degenerative disc disease Surgical History History of lumbosacral spine surgery (~11/24/20) History of surgery on right wrist (~02/07/20) S/P lumbar and lumbosacral fusion by anterior technique (~11/24/20) History of surgery Deficient knowledge of spinal cord stimulator S/P aneurysm repair History of knee replacement procedure of right knee History of hemorrhoidectomy History of bladder surgery Family History Father Medical history unknown Mother Diabetes Hypertension Social History Housing: House Alcohol intake: former Patient Tobacco Use Status: Never used Tobacco e-Cigarette/Vaping Use: Never Used Second Hand Smoke Exposure: Yes service: No Current occupational status: unemployed Cognitive needs: No Hearing needs: No Vision needs: No Questionnaire Thrive Questionnaire Date Thrive assessed: 06/20/23 I am a: Patient What is your living situation today?: I have a place to live, but I am worried about losing it in the future Within the past 12 months, did the food you bought not last and you didn't have the money to get more?: Never true Within the past 12 months, did you worry whether your food would run out before you got money to buy more?: Never true Do you have trouble paying for medicines?: No Do you have trouble getting transportation to medical appointments?: No Do you have trouble paying your heating and electricity bill?: No Do you have trouble taking care of your child, family member or friend?: No Do you have trouble with day-to-day activities such as bathing, preparing meals, shopping, managing finances, etc.?: No Are you currently unemployed and looking for a job?: No Are you interested in more education?: No Please select the resources that you would like help with: None Currently or been in a relationship where the following occur: no concerns reported THRIVE Score: 1 AUDIT C Alcohol Use Questionnaire (AUDIT-C) 1. How often do you have a drink containing alcohol?: Never 3. How often do you have six or more drinks on one occasion?: Never Total Score: 0 Score Reviewed/Action Taken: Yes KARINA-7 AMB Questionnaire KARINA-7 Date KARINA - 7 assessed: 06/20/23 Source: Developed by Drs. Job Pleitez, Pat Murry, Simon Mejía and colleagues, with an educational delicia from [employer]. Review of Systems Const Denies fatigue, Denies fever(s) and Denies headache(s) ENT Denies dysphagia, Denies dizziness, Denies otalgia, Denies headache(s), Denies odynophagia and Denies sore throat Card Denies chest pain, Denies palpitations and Denies dyspnea Resp Denies cough, Denies dyspnea and Denies wheezing GI Denies abdominal pain, Denies constipation, Denies dysphagia, Denies heartburn, Denies diarrhea, Denies nausea, Denies odynophagia and Denies vomiting Denies dysuria, Denies nocturia and Denies urinary frequency Musc Reports back pain (over the lumbar spine - chronic) and Reports arthralgias (right wrist - slightly better since surgery on 08/23/22) Skin/Breast Denies rash Neuro Denies dizziness and Denies headache(s) Endo Denies fatigue and Denies palpitations Aller/Immun Denies wheezing Physical exam (Primary Care) Vital Signs: Last Vital Signs Pulse 71 09/21/23 14:19 BP 136/88 09/21/23 14:19 Pulse Ox 97 09/21/23 14:19 Oxygen Delivery Method Room Air 09/21/23 14:19 BMI result Body Mass Index 29.1 Tobacco/Smoking Status: Tobacco use Status Tobacco use date assessed 09/21/23 09/21/23 14:24 Patient Tobacco Use Status Never used Tobacco 09/21/23 14:24 e-Cigarette/Vaping Use Never Used 09/21/23 14:24 Thrive Assessment: Date of Thrive Assessment Date Thrive assessed 06/20/23 09/21/23 14:24 Currently or been in a relationship where the following occur: no concerns reported Const General: no acute distress and alert HENMT Ears: TM's normal bilaterally and EAC's normal Throat: Yes posterior oropharynx normal and Yes tonsils normal (no TP congestion noted) Neck Neck: Yes no lymphadenopathy and Yes supple Thyroid: Thyroid normal Resp Auscultation: clear to auscultation bilaterally, no rales and no wheezes Cardio Rate: regular rate Rhythm: regular rhythm Heart sounds: no murmurs GI Palpation (GI): Soft to palpation and nontender Auscultation: normal bowel sounds General: Yes no CVA tenderness Back/Spine/Pelvis Back: no CVA tenderness Thoracic/Lumbar Spine: lumbar spinal tenderness Skin Rashes: no rashes Extrem General: Yes no clubbing, cyanosis or edema Results Reviewed Results Reviewed: Laboratory Tests 09/16/23 09/16/23 10:20 11:25 WBC 7.2 Hgb 15.5 Hct 44.2 Plt Count 193 Sodium 143 Potassium 4.2 Creatinine 1.43 H Estimated GFR 53 Fasting Glucose 93 Hemoglobin A1c % 5.5 Calcium 9.9 AST 24 ALT 27 Triglycerides 84 Cholesterol 155 LDL Cholesterol, Calc 99 HDL Cholesterol 40 L 25-OH Vitamin D Total 38.8 TSH 1.59 Urine pH 6.0 Ur Specific [place] 1.020 Urine Protein Negative Urine Glucose (UA) Negative Urine Blood Negative Urine Nitrite Negative Ur Leukocyte Esterase Negative Assessment and Plan Assessment & Plan (1) Pure hypercholesterolemia: Code(s): E78.00 - Pure hypercholesterolemia, unspecified Plan: Results of his labs done last week reviewed and discussed with patient Reinforced low cholesterol diet Continue Atorvastatin 10 mg QD Will recheck his labs and fasting lipids in 3 months for follow-up (2) Benign essential hypertension: Code(s): I10 - Essential (primary) hypertension Plan: Reinforced low sodium diet - goal is systolic BP of 120 mm or less Continue Lisinopril 10 mg QD (3) Chronic kidney disease (CKD), stage III (moderate): Code(s): N18.30 - Chronic kidney disease, stage 3 unspecified Qualifiers: Chronic kidney disease stage 3 subtype: stage 3a (GFR 45-59) Qualified Code(s): N18.31 - Chronic kidney disease, stage 3a Plan: His GFR and renal function again appears stable on his recent labs - will continue to monitor closely Renal US done last year came out normal, with small right renal cysts - no follow up imaging studies required Patient is encouraged to continue to increase his oral fluid intake consistently Follow up with nephrology as scheduled (4) Impaired fasting glucose: Code(s): R73.01 - Impaired fasting glucose Plan: HgbA1c remains normal at 5.5% on his labs done last week; was at 5.4% a few months ago Reinforced low calorie diet/exercise as tolerated (5) Lumbar degenerative disc disease: Code(s): M51.36 - Other intervertebral disc degeneration, lumbar region Plan: S/P anterior lumbar interbody fusion of L5-S1 by Dr. Philip on 11/24/2020 Reinforced activity and weight lifting restrictions Continue Oxycodone 10 mg every 6 hours as needed for increased pain, 28 days, #112 tablets, refills 0 Patient is cautioned again to avoid all NSAIDs completely as they can adversely affect his renal function (6) Bilateral carpal tunnel syndrome: Code(s): G56.03 - Carpal tunnel syndrome, bilateral upper limbs Plan: S/P right wrist tendon repair by Dr. Moyer on 09/08/2020 for rupture of ligament of the right wrist and more recently, S/P proximal row carpectomy on 08/23/22 Follow up with orthopedics as scheduled (7) Migraine: Code(s): G43.909 - Migraine, unspecified, not intractable, without status migrainosus Qualifiers: Intractability: not intractable Migraine type: unspecified Status migrainosus presence: without status migrainosus Qualified Code(s): G43.909 - Migraine, unspecified, not intractable, without status migrainosus Plan: Stable/controlled Continue Topiramate 25 mg Q HS for migraine headache prophylaxis Continue Fioricet 50-325-40 mg 1 tablet 3 to 4 times a day as needed for headaches (8) Thyroid nodule: Code(s): E04.1 - Nontoxic single thyroid nodule Plan: Stable - repeat thyroid US done in March 2021 came out normal; will consider getting a follow up US in 3 years (03/2024) Was last seen by endocrinology (Dr. Antunez) in March 2018 and recommended repeat TFTs every few months for follow up Advised that given the long-term stability of his thyroid nodule, he can just see his PCP for this and no longer needs to follow up with endocrinology on a regular basis unless something changes or something new occurs Reassured that his TFTs were normal on his recent labs (9) Benign prostatic hyperplasia with urinary hesitancy: Code(s): N40.1 - Benign prostatic hyperplasia with lower urinary tract symptoms; R39.11 - Hesitancy of micturition Plan: PSA last done last year came out normal Follow up with urology as scheduled (10) Insomnia: Code(s): G47.00 - Insomnia, unspecified Qualifiers: Insomnia type: unspecified Qualified Code(s): G47.00 - Insomnia, unspecified Plan: Sleep hygiene reinforced Continue Zolpidem 10 mg Q HS PRN (11) Anxiety: Code(s): F41.9 - Anxiety disorder, unspecified Plan: Continue Clonazepam 0.5 mg BID PRN (12) Depression: Code(s): F32.9 - Major depressive disorder, single episode, unspecified Qualifiers: Depression Type: unspecified Qualified Code(s): F32.A - Depression, unspecified Plan: Continue Quetiapine 100 mg Q HS and Bupropion ER 150 mg QD Follow up with psychiatry as scheduled (13) Overweight (BMI 25.0-29.9): Code(s): E66.3 - Overweight Plan: Reinforced diet/exercise as tolerated/lose weight Plan Follow up in 3 months Orders: Orders Lipid Panel 3 Months E78.00 - Pure hypercholesterolemia, unspecified Complete Blood Count Auto Diff 3 Months D64.9 - Anemia, unspecified Comprehensive [place]. Panel Fast 3 Months E78.00 - Pure hypercholesterolemia, unspecified Coding Level of Care Code Est Pt Level 4 (21615) Diagnoses Pure hypercholesterolemia E78.00 Benign essential hypertension I10 Stage 3a chronic kidney disease N18.31 Chronic kidney disease stage 3 subtype: stage 3a (GFR 45-59) Impaired fasting glucose R73.01 Lumbar degenerative disc disease M51.36 Bilateral carpal tunnel syndrome G56.03 Migraine without status migrainosus, not intractable, unspecified migraine type G43.909 Intractability: not intractable Migraine type: unspecified Status migrainosus presence: without status migrainosus Thyroid nodule E04.1 Benign prostatic hyperplasia with urinary hesitancy N40.1; R39.11 Insomnia, unspecified type G47.00 Insomnia type: unspecified Anxiety F41.9 Depression, unspecified depression type F32.A Depression Type: unspecified Overweight (BMI 25.0-29.9) E66.3
== END 2023-09-21 15:08 | disposition home or self-care (01) ==
PROVIDERS: PCP Internal Medicine; Visit Provider Internal Medicine
DX: I12.9 Hypertensive chronic kidney disease with stage 1 through stage 4 chronic kidney disease, or unspecified chronic kidney disease (principal); N18.31 Chronic kidney disease, stage 3a; E78.00 Pure hypercholesterolemia, unspecified; R73.01 Impaired fasting glucose; M51.36 Other intervertebral disc degeneration, lumbar region; G56.03 Carpal tunnel syndrome, bilateral upper limbs; G43.909 Migraine, unspecified, not intractable, without status migrainosus; E04.1 Nontoxic single thyroid nodule; N40.1 Benign prostatic hyperplasia with lower urinary tract symptoms; R39.11 Hesitancy of micturition; G47.00 Insomnia, unspecified; F41.9 Anxiety disorder, unspecified; F32.A Depression, unspecified; E66.3 Overweight
CPT/HCPCS: 99214

== ENCOUNTER 2023-10-25 13:49 | Outpatient (AMB) | payer OTHER, SELFPAY ==
--- NOTE | 2023-10-25 13:50 | HO.NEPHOV_ITS ---
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: No Accompanied by: Self / Same As Patient Allergies gabapentin Allergy (Unknown, Verified 10/25/23 13:53) trouble swallowing, swelling Medication List - Last Reconciled 10/25/23 by Jose Lynch MD amlodipine 2.5 mg PO DAILY atorvastatin 10 mg PO DAILY bupropion HCl XL 150 mg PO QAM bupropion HCl XL 300 mg PO DAILY bnufukgdzd-tsheqyhwmolmv-vqzs 50-325-40 mg 1 cap PO ONCE PRN cholecalciferol (vitamin D3) (Vitamin D3) 25 mcg PO DAILY clonazepam 0.25 mg PO BID cyclobenzaprine 10 mg PO TID PRN hydrocortisone 1% (Anti-Itch (hydrocortisone)) 1 appl topical TID PRN oxycodone 10 mg PO Q6H PRN 28 days quetiapine 200 mg PO BEDTIME sertraline 100 mg PO DAILY tadalafil (Cialis) 20 mg PO DAILY PRN zolpidem 10 mg PO BEDTIME PRN HPI Comments Details: 47-year-old man with a history of longstanding hypertension nephrolithiasis here for follow-up. He has mild CKD. Serum creatinine is between 1.3 and 1.4 mg/dL. Today has no new complaints. Lisinopril was discontinued last visit and creatinine is marginally better No new issues REPLACED BY [facility] Medical History Status post proximal row carpectomy of wrist (~08/23/22) Chronic kidney disease (CKD), stage III (moderate) Rupture of ligament of wrist Renal insufficiency Vitamin D deficiency Overweight (BMI 25.0-29.9) Depression Anxiety Insomnia Benign prostatic hyperplasia Bilateral carpal tunnel syndrome Thyroid nodule Migraine Impaired fasting glucose Pure hypercholesterolemia Benign essential hypertension Lumbar degenerative disc disease Surgical History History of lumbosacral spine surgery (~11/24/20) History of surgery on right wrist (~02/07/20) S/P lumbar and lumbosacral fusion by anterior technique (~11/24/20) History of surgery Deficient knowledge of spinal cord stimulator S/P aneurysm repair History of knee replacement procedure of right knee History of hemorrhoidectomy History of bladder surgery Family History Father Medical history unknown Mother Diabetes Hypertension Social History Housing: House Alcohol intake: former Patient Tobacco Use Status: Never used Tobacco e-Cigarette/Vaping Use: Never Used Second Hand Smoke Exposure: Yes service: No Current occupational status: unemployed Cognitive needs: No Hearing needs: No Vision needs: No Physical Exam Vital Signs: Last Vital Signs Pulse 74 10/25/23 13:51 BP 132/86 10/25/23 13:51 Pulse Ox 97 10/25/23 13:51 Oxygen Delivery Method Room Air 10/25/23 13:51 BMI result Body Mass Index 28.8 Results Reviewed Nephrology Results: Hgb 15.5 g/dl (14.0-18.0) 09/16/23 WBC 7.2 X10*3/uL (4.8-10.8) 09/16/23 Plt Count 193 X10*3/uL (160-400) 09/16/23 Sodium 143 mmol/L (135-145) 09/16/23 Potassium 4.2 mmol/L (3.3-5.1) 09/16/23 Chloride 106 mmol/L (96-108) 09/16/23 Carbon Dioxide 29 mmol/L (22-29) 09/16/23 BUN 16 mg/dL (9-16) 09/16/23 Creatinine 1.43 mg/dL (0.5-1.4) H 09/16/23 Calcium 9.9 mg/dL (8.4-10.2) 09/16/23 Urine Protein Negative mg/dL (Neg-Trace) 09/16/23 Assessment & Plan Assessment & Plan (1) Chronic kidney disease (CKD), stage III (moderate): Code(s): N18.30 - Chronic kidney disease, stage 3 unspecified Category: Medical Qualifiers: Chronic kidney disease stage 3 subtype: stage 3a (GFR 45-59) Qualified Code(s): N18.31 - Chronic kidney disease, stage 3a (2) Nephrolithiasis: Code(s): N20.0 - Calculus of kidney Category: Medical Plan 47-year-old man is status CKD in setting of longstanding hypertension and there nephrolithiasis. Bp is well controlled There is serum creatinine fluctuates between 1.3 and 1.5 mg . For now I will hold off on using any RICHY inhibitors. Encouraged him to increase p.o. fluid intake. No evidence of any obstruction. Urine sediments with bland and no significant proteinuria in the past. Shall continue monitor for the same. Orders: Orders Basic Metabolic Panel 6 Months N20.0 - Calculus of kidney Sodium Urine Random 6 Months N20.0 - Calculus of kidney UA and rflx microscopic 6 Months N20.0 - Calculus of kidney Coding Level of Care Code Est Pt Level 4 (86479) Diagnoses Stage 3a chronic kidney disease N18.31 Chronic kidney disease stage 3 subtype: stage 3a (GFR 45-59) Nephrolithiasis N20.0
[2023-10-25 13:51] VITALS: BP 132/86; PULSE 74; O2SAT 97; BMI 28.8
== END 2023-10-25 14:07 | disposition home or self-care (01) ==
PROVIDERS: PCP Internal Medicine; Visit Provider Internal Medicine Hypertension Specialist
DX: N18.31 Chronic kidney disease, stage 3a (principal); N20.0 Calculus of kidney
CPT/HCPCS: 99214

== ENCOUNTER → 2023-10-25 13:49 | Outpatient (BNVA) | payer OTHER, SELFPAY | PROVIDERS: PCP Internal Medicine; Visit Provider Internal Medicine Hypertension Specialist | DX: I12.9 Hypertensive chronic kidney disease with stage 1 through stage 4 chronic kidney disease, or unspecified chronic kidney disease (principal); N18.31 Chronic kidney disease, stage 3a; N20.0 Calculus of kidney | CPT/HCPCS: 99212 ==

== ENCOUNTER 2023-12-29 09:28 | Outpatient (REF) | payer OTHER, SELFPAY ==
[2023-12-29 09:57] LABS: MANUAL DIFF FLAG NO
[2023-12-29 11:00] LABS: Basophils Absolute Auto 0.1 X10*3/uL (0.0-0.2); Basophils Percent Auto 0.5 % (0-2); Eosinophils Absolute Auto 0.2 X10*3/uL (0.0-0.4); Eosinophils Percent Auto 2.1 % (0-4); Hematocrit 44.9 % (42.0-52.0); Hemoglobin 15.4 g/dl (14.0-18.0); Lymphocytes Absolute Auto 2.1 X10*3/uL (1.2-4.9); Lymphocytes Percent Auto 20.7 % (20-40); Mean Corpuscular HGB Conc 34.3 g/dl (31.0-36.0); Mean Corpuscular Hemoglobin 30.9 pg (27.0-33.0); Mean Platelet Volume 9.9 fL (9.4-12.4); Monocytes Absolute Auto 0.9 X10*3/uL (0.1-1.2); Monocytes Percent Auto 8.5 % (2-11); Neutrophils Absolute Auto 6.9 x10*3/uL (2.0-8.3); Neutrophils Percent Auto 67.2 % (45-73); Platelet Count 256 X10*3/uL (160-400); Red Blood Count 4.99 X10*6/uL (4.60-5.80); Red Cell Distribution Width 12.1 % (11.0-16.0); White Blood Count 10.3 X10*3/uL (4.8-10.8)
[2023-12-29 11:37] LABS: Alanine Aminotransferase 19 U/L (0-40); Albumin Level 4.4 g/dL (3.5-5.0); Alkaline Phosphatase 89 U/L (39-117); Anion Gap 11 (12-20); Aspartate Amino Transferase 19 U/L (5-37); Bilirubin Total 0.5 mg/dL (0.0-1.0); Blood Urea Nitrogen 14 mg/dL (9-16); Calcium 9.2 mg/dL (8.4-10.2); Carbon Dioxide 29 mmol/L (22-29); Chloride 106 mmol/L (96-108); Cholesterol 138 mg/dL (<200); Estimated Glomerular Filt Rate 56; Glucose Fasting 89 mg/dL (60-99); HDL Cholesterol 40 mg/dL (>40); LDL Cholesterol Calculated 84 mg/dL (<100); Potassium 4.1 mmol/L (3.3-5.1); Sodium 142 mmol/L (135-145); Triglycerides 73 mg/dL (<150)
== END 2023-12-29 09:29 | disposition home or self-care (01) ==
LOC: HO.LAB 09:28
PROVIDERS: PCP Internal Medicine; Visit Provider Internal Medicine
DX: D64.9 Anemia, unspecified (principal); E78.00 Pure hypercholesterolemia, unspecified
CPT/HCPCS: 36415; 80053; 80061; 85025

== ENCOUNTER 2024-01-03 14:39 | Outpatient (AMB) | payer OTHER, SELFPAY ==
--- NOTE | 2024-01-03 14:56 | MHC.PC.OV ---
Vital Signs 01/03/24 14:57 Height 5 ft 9 in Weight 197 lb BMI 29.1 BP 124/86 Blood Pressure Location Lt brachial Position Sitting Pulse 76 Pulse Source Pulse Oximeter Pulse Oximetry (%) 97 Oxygen Delivery Method Room Air Intake Visit Reasons: 3mo f\u Allergies gabapentin Allergy (Unknown, Verified 01/03/24 15:28) trouble swallowing, swelling Medication List - Last Reconciled 01/03/24 by Desmond Montelongo MD amlodipine 2.5 mg PO DAILY atorvastatin 10 mg PO DAILY bupropion HCl XL 150 mg PO QAM bupropion HCl XL 300 mg PO DAILY udgzeyrvqp-etxoezjedubkr-gyhn 50-325-40 mg 1 cap PO ONCE PRN cholecalciferol (vitamin D3) (Vitamin D3) 25 mcg PO DAILY clonazepam 0.25 mg PO BID cyclobenzaprine 10 mg PO TID PRN hydrocortisone 1% (Anti-Itch (hydrocortisone)) 1 appl topical TID PRN naloxone 4 mg/actuation (Narcan) 4 mg intranasal Q2M PRN oxycodone 10 mg PO Q6H PRN 28 days quetiapine 200 mg PO BEDTIME sertraline 100 mg PO DAILY tadalafil (Cialis) 20 mg PO DAILY PRN zolpidem 10 mg PO BEDTIME PRN Tobacco use date assessed: 01/03/24 Dental Screening Dental Screen Date: 01/03/24 HPI 3mo f\u HPI Details Patient comes in today for his follow up visit States that he feels okay He denies any headaches or dizziness Denies any chest pains, no SOB No nausea/vomiting, no abdominal pain No change in bowel habits noted\ States that his chronic low back pain and joint pains remain adequately controlled on his current Rx He had his follow up labs done a few days ago - to discuss his results [facility] Medical History Status post proximal row carpectomy of wrist (~08/23/22) Chronic kidney disease (CKD), stage III (moderate) Rupture of ligament of wrist Renal insufficiency Vitamin D deficiency Overweight (BMI 25.0-29.9) Depression Anxiety Insomnia Benign prostatic hyperplasia Bilateral carpal tunnel syndrome Thyroid nodule Migraine Impaired fasting glucose Pure hypercholesterolemia Benign essential hypertension Lumbar degenerative disc disease Surgical History History of lumbosacral spine surgery (~11/24/20) History of surgery on right wrist (~02/07/20) S/P lumbar and lumbosacral fusion by anterior technique (~11/24/20) History of surgery Deficient knowledge of spinal cord stimulator S/P aneurysm repair History of knee replacement procedure of right knee History of hemorrhoidectomy History of bladder surgery Family History Father Medical history unknown Mother Diabetes Hypertension Social History Housing: House Alcohol intake: former Patient Tobacco Use Status: Never used Tobacco e-Cigarette/Vaping Use: Never Used Second Hand Smoke Exposure: Yes service: No Current occupational status: unemployed Cognitive needs: No Hearing needs: No Vision needs: No Questionnaire PHQ-9 Over the last 2 weeks, how often have you been bothered by any of the following problems? 1. Little interest or pleasure in doing things: several days 2. Feeling down, depressed, or hopeless: several days 3. Trouble falling or staying asleep, or sleeping too much: several days 4. Feeling tired or having little energy: several days 5. Poor appetite or overeating: not at all 6. Feeling bad about yourself - or that you are a failure or have let yourself or your family down: not at all 7. Trouble concentrating on things, such as reading the newspaper or watching television: not at all 8. Moving or speaking so slowly that other people could have noticed. Or the opposite - being so fidgety or restless that you have been moving around a lot more than usual: not at all 9. Thoughts that you would be better off or of hurting yourself in some way: not at all Total score: 4 Depression Screening Interpretation: Positive Depression Screening Follow-up: Existing condition and In treatment Depression Screening Done: Yes 27120 - PHQ-9 Billing: Yes Source: Developed by Drs. Jbo Pleitez, Pat Murry, Simon Mejía and colleagues, with an educational delicia from [employer]. Thrive Questionnaire Date Thrive assessed: 01/03/24 I am a: Patient What is your living situation today?: I have a place to live, but I am worried about losing it in the future Within the past 12 months, did the food you bought not last and you didn't have the money to get more?: Never true Within the past 12 months, did you worry whether your food would run out before you got money to buy more?: Never true Do you have trouble paying for medicines?: No Do you have trouble getting transportation to medical appointments?: No Do you have trouble paying your heating and electricity bill?: No Do you have trouble taking care of your child, family member or friend?: No Do you have trouble with day-to-day activities such as bathing, preparing meals, shopping, managing finances, etc.?: No Are you currently unemployed and looking for a job?: No Are you interested in more education?: No Please select the resources that you would like help with: None Currently or been in a relationship where the following occur: No concerns reported THRIVE Score: 1 AUDIT C Alcohol Use Questionnaire (AUDIT-C) 1. How often do you have a drink containing alcohol?: Never 3. How often do you have six or more drinks on one occasion?: Never Total Score: 0 Score Reviewed/Action Taken: Yes KARINA-7 AMB Questionnaire KARINA-7 Date KARINA - 7 assessed: 01/03/24 Feeling nervous, anxious, or on edge: 0 = Not at all Not being able to stop or control worryin = Not at all Worrying too much about different things: 0 = Not at all Trouble relaxin = Not at all Being so restless that it is hard to sit still: 0 = Not at all Becoming easily annoyed or irritable: 0 = Not at all Feeling afraid as if something awful might happen: 0 = Not at all Total KARINA-7 score (0-4 normal; 5-9 mild; 10-14 moderate; 15-21 severe): 0 Source: Developed by Drs. Job Pleitez, Pat Murry, Simon Mejía and colleagues, with an educational delicia from [employer]. Review of Systems Const Denies chills, Denies fatigue, Denies fever(s) and Denies headache(s) ENT Denies dysphagia, Denies dizziness, Denies otalgia, Denies headache(s), Denies neck pain, Denies odynophagia and Denies sore throat Card Denies chest pain, Denies palpitations and Denies dyspnea Resp Denies chest congestion, Denies cough and Denies dyspnea GI Denies abdominal pain, Denies constipation, Denies dysphagia, Denies heartburn, Denies diarrhea, Denies nausea, Denies odynophagia and Denies vomiting Denies dysuria, Denies nocturia and Denies urinary frequency Musc Reports back pain (over the lumbar spine - chronic), Reports arthralgias (right wrist - slightly better since surgery on 08/23/22) and Denies neck pain Skin/Breast Denies rash Neuro Denies dizziness and Denies headache(s) Endo Denies fatigue and Denies palpitations Physical exam (Primary Care) Vital Signs: Last Vital Signs Pulse 76 01/03/24 14:57 BP 124/86 01/03/24 14:57 Pulse Ox 97 01/03/24 14:57 Oxygen Delivery Method Room Air 01/03/24 14:57 BMI result Body Mass Index 29.1 Tobacco/Smoking Status: Tobacco use Status Tobacco use date assessed 01/03/24 01/03/24 15:04 Patient Tobacco Use Status Never used Tobacco 01/03/24 15:04 e-Cigarette/Vaping Use Never Used 01/03/24 15:04 PHQ-9: PHQ-9 Score PHQ-9: Total score 4 01/03/24 15:31 Depression Screening Interpretation: Positive Depression Screening Follow-up: Existing condition and In treatment Thrive Assessment: Date of Thrive Assessment Date Thrive assessed 01/03/24 01/03/24 15:04 Currently or been in a relationship where the following occur: No concerns reported Const General: no acute distress and alert HENMT Ears: TM's normal bilaterally and EAC's normal Throat: Yes posterior oropharynx normal and Yes tonsils normal (no TP congestion noted) Neck Neck: Yes no lymphadenopathy and Yes supple Thyroid: Thyroid normal Resp Auscultation: clear to auscultation bilaterally, no rales and no wheezes Cardio Rate: regular rate Rhythm: regular rhythm Heart sounds: no murmurs GI Palpation (GI): Soft to palpation and nontender Auscultation: normal bowel sounds General: Yes no CVA tenderness Back/Spine/Pelvis Back: no CVA tenderness Cervical Spine: No Cervical spine tenderness Thoracic/Lumbar Spine: lumbar spinal tenderness Skin Rashes: no rashes Extrem General: Yes no clubbing, cyanosis or edema Right upper extremity: wrist Details: tenderness (mild) and normal ROM; no swelling Results Reviewed Results Reviewed: Laboratory Tests 12/29/23 09:55 WBC 10.3 Hgb 15.4 Hct 44.9 Plt Count 256 D Sodium 142 Potassium 4.1 Creatinine 1.35 Estimated GFR 56 Fasting Glucose 89 Calcium 9.2 D AST 19 ALT 19 Triglycerides 73 Cholesterol 138 LDL Cholesterol, Calc 84 HDL Cholesterol 40 L Assessment and Plan Assessment & Plan (1) Pure hypercholesterolemia: Code(s): E78.00 - Pure hypercholesterolemia, unspecified Plan: Results of his labs done a few days ago reviewed and discussed with patient Reinforced low cholesterol diet Continue Atorvastatin 10 mg QD Will recheck his labs and fasting lipids in 3 months for follow-up (2) Chronic kidney disease (CKD), stage III (moderate): Code(s): N18.30 - Chronic kidney disease, stage 3 unspecified Qualifiers: Chronic kidney disease stage 3 subtype: stage 3a (GFR 45-59) Qualified Code(s): N18.31 - Chronic kidney disease, stage 3a Plan: His GFR and renal function again appears stable on his recent labs - will continue to monitor closely Renal US done last year came out normal, with small right renal cysts - no follow up imaging studies required Patient is encouraged to continue to increase his oral fluid intake consistently Follow up with nephrology as scheduled (3) Benign essential hypertension: Code(s): I10 - Essential (primary) hypertension Plan: Reinforced low sodium diet - goal is systolic BP of 120 mm or less Continue Lisinopril 10 mg QD (4) Impaired fasting glucose: Code(s): R73.01 - Impaired fasting glucose Plan: HgbA1c remains normal at 5.5% and 5.4% when previously checked Reinforced low calorie diet/exercise as tolerated (5) Lumbar degenerative disc disease: Code(s): M51.36 - Other intervertebral disc degeneration, lumbar region Plan: S/P anterior lumbar interbody fusion of L5-S1 by Dr. Philip on 11/24/2020 Reinforced activity and weight lifting restrictions Continue Oxycodone 10 mg every 6 hours as needed for increased pain, 28 days, #112 tablets, refills 0 Patient is cautioned again to avoid all NSAIDs completely as they can adversely affect his renal function (6) Bilateral carpal tunnel syndrome: Code(s): G56.03 - Carpal tunnel syndrome, bilateral upper limbs Plan: S/P right wrist tendon repair by Dr. Moyer on 09/08/2020 for rupture of ligament of the right wrist and more recently, S/P proximal row carpectomy on 08/23/22 Follow up with orthopedics as scheduled (7) Migraine: Code(s): G43.909 - Migraine, unspecified, not intractable, without status migrainosus Qualifiers: Intractability: not intractable Migraine type: unspecified Status migrainosus presence: without status migrainosus Qualified Code(s): G43.909 - Migraine, unspecified, not intractable, without status migrainosus Plan: Stable/controlled Continue Fioricet 50-325-40 mg 1 tablet 3 to 4 times a day as needed for headaches Patient used to take Topiramate 25 mg Q HS for migraine headache prophylaxis but appears to have stopped taking this a couple of years ago - states that his headaches have not really gotten any worse since he quit taking his Topiramate (8) Thyroid nodule: Code(s): E04.1 - Nontoxic single thyroid nodule Plan: Stable - repeat thyroid US done in March 2021 came out normal; will consider getting a follow up US in 3 years (03/2024) - will order this at his next appointment Was last seen by endocrinology (Dr. Antunez) in March 2018 and recommended repeat TFTs every few months for follow up Advised that given the long-term stability of his thyroid nodule, he can just see his PCP for this and no longer needs to follow up with endocrinology on a regular basis unless something changes or something new occurs Patient is again reassured that his TFTs were normal on his recent labs (9) Benign prostatic hyperplasia with urinary hesitancy: Code(s): N40.1 - Benign prostatic hyperplasia with lower urinary tract symptoms; R39.11 - Hesitancy of micturition Plan: PSA last done last year came out normal Follow up with urology as scheduled (10) Insomnia: Code(s): G47.00 - Insomnia, unspecified Qualifiers: Insomnia type: unspecified Qualified Code(s): G47.00 - Insomnia, unspecified Plan: Sleep hygiene reinforced Continue Zolpidem 10 mg Q HS PRN (11) Anxiety: Code(s): F41.9 - Anxiety disorder, unspecified Plan: Continue Clonazepam 0.5 mg BID PRN (12) Depression: Code(s): F32.9 - Major depressive disorder, single episode, unspecified Qualifiers: Depression Type: unspecified Qualified Code(s): F32.A - Depression, unspecified Plan: Continue Quetiapine 200 mg Q HS, Sertraline 100 mg QD and Bupropion ER 300 mg QD Follow up with psychiatry as scheduled (13) Overweight (BMI 25.0-29.9): Code(s): E66.3 - Overweight Plan: Reinforced diet/exercise as tolerated/lose weight Plan To return in 3 months for his next annual physical examination Orders: Orders Comprehensive [place]. Panel Fast 3 Months E78.00 - Pure hypercholesterolemia, unspecified, Z00.00 - Encounter for general adult medical examination without abnormal findings Prostate Specific Antigen Scr 3 Months Z00.00 - Encounter for general adult medical examination without abnormal findings Complete Blood Count Auto Diff 3 Months D64.9 - Anemia, unspecified, Z00.00 - Encounter for general adult medical examination without abnormal findings Lipid Panel 3 Months E78.00 - Pure hypercholesterolemia, unspecified, Z00.00 - Encounter for general adult medical examination without abnormal findings TSH reflex Free T4 3 Months E78.00 - Pure hypercholesterolemia, unspecified, Z00.00 - Encounter for general adult medical examination without abnormal findings UA CC w/rflx Micro + Cult 3 Months R30.0 - Dysuria, Z00.00 - Encounter for general adult medical examination without abnormal findings Vitamin D 25-OH Total 3 Months E55.9 - Vitamin D deficiency, unspecified, Z00.00 - Encounter for general adult medical examination without abnormal findings Coding Level of Care Code Est Pt Level 4 (29979) Diagnoses Pure hypercholesterolemia E78.00 Stage 3a chronic kidney disease N18.31 Chronic kidney disease stage 3 subtype: stage 3a (GFR 45-59) Benign essential hypertension I10 Impaired fasting glucose R73.01 Lumbar degenerative disc disease M51.36 Bilateral carpal tunnel syndrome G56.03 Migraine without status migrainosus, not intractable, unspecified migraine type G43.909 Intractability: not intractable Migraine type: unspecified Status migrainosus presence: without status migrainosus Thyroid nodule E04.1 Benign prostatic hyperplasia with urinary hesitancy N40.1; R39.11 Insomnia, unspecified type G47.00 Insomnia type: unspecified Anxiety F41.9 Depression, unspecified depression type F32.A Depression Type: unspecified Overweight (BMI 25.0-29.9) E66.3
[2024-01-03 14:57] VITALS: BP 124/86; PULSE 76; O2SAT 97; BMI 29.1
== END 2024-01-03 15:34 | disposition home or self-care (01) ==
PROVIDERS: PCP Internal Medicine; Visit Provider Internal Medicine
DX: E78.00 Pure hypercholesterolemia, unspecified (principal); N18.31 Chronic kidney disease, stage 3a; I10 Essential (primary) hypertension; R73.01 Impaired fasting glucose; M51.36 Other intervertebral disc degeneration, lumbar region; G56.03 Carpal tunnel syndrome, bilateral upper limbs; G43.909 Migraine, unspecified, not intractable, without status migrainosus; E04.1 Nontoxic single thyroid nodule; N40.1 Benign prostatic hyperplasia with lower urinary tract symptoms; R39.11 Hesitancy of micturition; G47.00 Insomnia, unspecified; F41.9 Anxiety disorder, unspecified; F32.A Depression, unspecified; E66.3 Overweight

== ENCOUNTER → 2024-01-03 14:39 | Outpatient (BNVA) | payer OTHER, SELFPAY | PROVIDERS: PCP Internal Medicine; Visit Provider Internal Medicine | DX: E78.00 Pure hypercholesterolemia, unspecified (principal); I12.9 Hypertensive chronic kidney disease with stage 1 through stage 4 chronic kidney disease, or unspecified chronic kidney disease; N18.31 Chronic kidney disease, stage 3a; M51.36 Other intervertebral disc degeneration, lumbar region; G56.03 Carpal tunnel syndrome, bilateral upper limbs; E04.1 Nontoxic single thyroid nodule; R39.11 Hesitancy of micturition | CPT/HCPCS: 99212 ==

== ENCOUNTER 2024-03-20 11:20 | Outpatient (REF) | payer OTHER, SELFPAY ==
[2024-03-20 11:34] LABS: MANUAL DIFF FLAG NO
[2024-03-20 11:49] LABS: Basophils Percent Auto 0.4 % (0-2); Eosinophils Absolute Auto 0.2 X10*3/uL (0.0-0.4); Eosinophils Percent Auto 2.3 % (0-4); Hemoglobin 15.4 g/dl (14.0-18.0); Imm Gran Abs Auto 0.03 X10*3/uL (0.00-0.03); Imm Gran Pct Auto 0.4 % (0.0-0.4); Lymphocytes Absolute Auto 1.6 X10*3/uL (1.2-4.9); Lymphocytes Percent Auto 19.4 % (20-40); Mean Corpuscular HGB Conc 34.2 g/dl (31.0-36.0); Mean Corpuscular Hemoglobin 30.7 pg (27.0-33.0); Mean Corpuscular Volume 89.6 fL (80.0-98.0); Mean Platelet Volume 10.1 fL (9.4-12.4); Monocytes Absolute Auto 0.7 X10*3/uL (0.1-1.2); Monocytes Percent Auto 8.6 % (2-11); Neutrophils Absolute Auto 5.5 x10*3/uL (2.0-8.3); Neutrophils Percent Auto 68.9 % (45-73); Platelet Count 183 X10*3/uL (160-400); Red Blood Count 5.02 X10*6/uL (4.60-5.80)
[2024-03-20 12:58] LABS: Blood Urea Nitrogen 14 mg/dL (9-16); Calcium 9.7 mg/dL (8.4-10.2)
[2024-03-20 13:12] LABS: Alanine Aminotransferase 51 U/L (0-40); Albumin Level 4.4 g/dL (3.5-5.0); Alkaline Phosphatase 75 U/L (39-117); Anion Gap 9 (12-20); Aspartate Amino Transferase 37 U/L (5-37); Bilirubin Total 0.6 mg/dL (0.0-1.0); Blood Urea Nitrogen 14 mg/dL (9-16); Calcium 9.6 mg/dL (8.4-10.2); Carbon Dioxide 32 mmol/L (22-29); Chloride 105 mmol/L (96-108); Cholesterol 170 mg/dL (<200); Estimated Glomerular Filt Rate 48; Glucose Fasting 103 mg/dL (60-99); HDL Cholesterol 37 mg/dL (>40); LDL Cholesterol Calculated 96 mg/dL (<100); Potassium 3.9 mmol/L (3.3-5.1); Sodium 142 mmol/L (135-145); Total Protein 6.8 g/dL (6.5-8.0); Triglycerides 188 mg/dL (<150)
[2024-03-20 13:21] LABS: Prostate Specific Antigen Scr 0.29 ng/mL (<0.05-4.0)
[2024-03-20 13:33] LABS: TSH reflex Free T4 2.49 uIU/mL (0.32-4.0); Vitamin D 25-OH Total 37.1 ng/mL (>30)
[2024-03-20 14:11] LABS: PSA,Total (Free>4and<10) 0.31 ng/mL (0.00-4.00)
[2024-03-20 16:26] LABS: Appearance Urine Clear; Color Urine Yellow; Glucose Urine UA Negative (Negative); Leukocyte Esterase Urine Trace (Negative); Nitrite Urine Negative (Negative); PH 5.5 (5.0-9.0); Specific Gravity - Urine 1.025 (1.005-1.025); UMIC TRIGGER UACC YES; Urine Blood Negative (Negative); Urine Ketones Trace mg/dL (Negative); Urine Protein Negative (Neg-Trace)
[2024-03-20 16:33] LABS: Bacteria Urine None Seen (None Seen); Hyaline Casts Urine 0-2 /LPF (0-2); RBC Urine 0-2 /HPF (0-2); Squamous Epithelial Cell Urine 0-2 /HPF (0-2); WBC Urine 0-5 /HPF (0-5)
[2024-03-20 18:25] LABS: Total Protein Urine Random < 7 mg/dL (<12)
== END 2024-03-20 11:21 | disposition home or self-care (01) ==
LOC: HO.LAB 11:20
PROVIDERS: Internal Medicine Hypertension Specialist; PCP Internal Medicine; Visit Provider Urology
DX: N18.30 Chronic kidney disease, stage 3 unspecified (principal); Z00.00 Encounter for general adult medical examination without abnormal findings; D64.9 Anemia, unspecified; E55.9 Vitamin D deficiency, unspecified; E78.00 Pure hypercholesterolemia, unspecified; Z12.5 Encounter for screening for malignant neoplasm of prostate
CPT/HCPCS: 36415; 80053; 80061; 81001; 82306; 82310; 82570; 84153; 84156; 84300; 84443; 84520; 85025

== ENCOUNTER 2024-04-12 08:38 | Outpatient (AMB) | payer OTHER, SELFPAY ==
--- NOTE | 2024-04-11 19:28 | MHC.OFFVIS ---
Intake Visit Reasons: 1Y PSA/PVR(set) Intake Note: Patient is present for 1 year PSA/PVR Urology Med: Tadafil Antibiotic Allergy: None Blood Thinner: None Today PVR: 50ml's LABS: PSA: 03/20- 0.29 total PSA: 0.31 Patient Symptoms: Patient states sometimes he has retention Cleaner Touch Up Worker Required: Yes Cleaner Touch Up Worker Language: Stock Clerk Name: Bill Julio [id number] Accompanied by: Self / Same As Patient Allergies gabapentin Allergy (Unknown, Verified 04/12/24 09:15) trouble swallowing, swelling HPI Comments Details: 04/12/24--Demetris is a 49-year-old male who presents to the office for LUTS of urgency and incomplete bladder emptying follow-up. PSA 03/20/24--0.29, Total PSA-0.31 PSA screening, FU one year. Cont Behaviorial modification, limit caffeine intake Review of chart: 03/30/23-- Demetris is a 47-year-old male who presents to the office as a FU for lower urinary tract symptoms. The patient has significant medical history of hypertension, Anxiety, CKD, followed by Nephrology. The patient is Kyrgyz speaking male. Certified sales and marketing engineer is present during the visit. Denies family history of prostate cancer. The patient's father does not have any prostate issues. Currently he is advised on behaviorial modification, currently not on bladder meds, he was prescribed flomax but had SE of runny nose. He denies dysuria or hematuria, feels urinary flow is good. PSA results 03/28/23-- 0.30 Review of testing: Results: creatinine levels were 05/18/22--1.38 and 05/25/22--1.47. Renal US results reviewed?12/31/2021-- Suggestive of right renal simple appearing cysts measuring up to 2.8 cm [facility] Medical History Status post proximal row carpectomy of wrist (~08/23/22) Chronic kidney disease (CKD), stage III (moderate) Rupture of ligament of wrist Renal insufficiency Vitamin D deficiency Overweight (BMI 25.0-29.9) Depression Anxiety Insomnia Benign prostatic hyperplasia Bilateral carpal tunnel syndrome Thyroid nodule Migraine Impaired fasting glucose Pure hypercholesterolemia Benign essential hypertension Lumbar degenerative disc disease Surgical History History of lumbosacral spine surgery (~11/24/20) History of surgery on right wrist (~02/07/20) S/P lumbar and lumbosacral fusion by anterior technique (~11/24/20) History of surgery Deficient knowledge of spinal cord stimulator S/P aneurysm repair History of knee replacement procedure of right knee History of hemorrhoidectomy History of bladder surgery Family History Father Medical history unknown Mother Diabetes Hypertension Social History Housing: House Alcohol intake: former Patient Tobacco Use Status: Never used Tobacco e-Cigarette/Vaping Use: Never Used Second Hand Smoke Exposure: Yes service: No Current occupational status: unemployed Cognitive needs: No Hearing needs: No Vision needs: No Office Procedures Post Void Residual Post Residual Void Post Void Residual (PVR): 50 [id number] Void Residual by ultrasound Results AMB Urinalysis, Automated UA Leukoctes 0 Patricia/uL Last Edit by Radha Dia CMA on 04/12/24 09:13 UA Nitrite Negative Last Edit by Radha Dai CMA on 04/12/24 09:13 UA Urobilinogen 0.2 mg/dL Last Edit by Radha Dia CMA on 04/12/24 09:13 UA Protein 0 mg/dL Last Edit by Radha Dia CMA on 04/12/24 09:13 UA pH 6.0 Last Edit by Radha Dia CMA on 04/12/24 09:13 UA Blood 0 Christopher/uL Last Edit by Radha Dia CMA on 04/12/24 09:13 UA Specific [place] 1.020 Last Edit by Radha Dia CMA on 04/12/24 09:13 UA Ketone Negative Last Edit by Radha Dia CMA on 04/12/24 09:13 UA Bilirubin 0 mg/dL Last Edit by Radha Dia CMA on 04/12/24 09:13 UA Glucose 0 mg/dL Last Edit by Radha Dia CMA on 04/12/24 09:13 Results Reviewed Results Reviewed: Laboratory Last Values Urine pH (Auto) 6.0 04/12/24 09:11 Specific [place] (Auto) 1.020 04/12/24 09:11 Urine Protein (Auto) 0 mg/dL 04/12/24 09:11 Glucose (UA)(Auto) 0 mg/dL 04/12/24 09:11 Urine Ketones (Auto) Negative 04/12/24 09:11 Urine Blood (Auto) 0 Christopher/uL 04/12/24 09:11 Urine Nitrite (Auto) Negative 04/12/24 09:11 Urine Bilirubin (Auto) 0 mg/dL 04/12/24 09:11 Urine Urobilinogen (Auto) 0.2 mg/dL 04/12/24 09:11 Leukocyte Esterase (Auto) 0 Patricia/uL 04/12/24 09:11 Assessment & Plan Assessment & Plan Orders: Orders AMB Urinalysis Automated Today Z13.9 - Encounter for screening, unspecified AMB Post Void Residual by ultrasound Today R33.9 - Retention of urine, unspecified Coding CPT Codes Post Residual Void - PVR CPT Code: 24231-Eysi Void Residual by ultrasound ([id number])
== END 2024-04-12 09:59 | disposition home or self-care (01) ==
PROVIDERS: PCP Internal Medicine; Visit Provider Urology
DX: Z13.9 Encounter for screening, unspecified (principal)

== ENCOUNTER → 2024-04-12 08:38 | Outpatient (BNVA) | payer OTHER, SELFPAY | PROVIDERS: PCP Internal Medicine; Visit Provider Urology | DX: N40.1 Benign prostatic hyperplasia with lower urinary tract symptoms (principal); R39.15 Urgency of urination; R33.8 Other retention of urine | CPT/HCPCS: 51798; 81003; 99212 ==

== ENCOUNTER 2024-05-01 10:34 | Outpatient (AMB) | payer OTHER, SELFPAY ==
[2024-05-01 10:35] VITALS: BP 110/78; PULSE 78; O2SAT 97; BMI 28.9
--- NOTE | 2024-05-01 10:35 | HO.NEPHOV_ITS ---
Vital Signs 05/01/24 10:35 Height 5 ft 9 in Weight 196 lb BMI 28.9 BP 110/78 Blood Pressure Location Rt brachial Position Sitting Pulse 78 Pulse Source Pulse Oximeter Pulse Oximetry (%) 97 Oxygen Delivery Method Room Air Intake Visit Reasons: Chronic kidney disease/ CONF Corporate Strategist Required: No Accompanied by: Self / Same As Patient Allergies gabapentin Allergy (Unknown, Verified 05/01/24 10:37) trouble swallowing, swelling Medication List - Last Reconciled 05/01/24 by Jose Lynch MD amlodipine 2.5 mg PO DAILY atorvastatin 10 mg PO DAILY bupropion HCl XL 150 mg PO QAM bupropion HCl XL 300 mg PO DAILY rmscyrcned-nmaisozorjdlt-ffzi 50-325-40 mg 1 cap PO ONCE PRN cholecalciferol (vitamin D3) (Vitamin D3) 25 mcg PO DAILY clonazepam 0.25 mg PO BID cyclobenzaprine 10 mg PO TID PRN hydrocortisone 1% (Anti-Itch (hydrocortisone)) 1 appl topical TID PRN naloxone 4 mg/actuation (Narcan) 4 mg intranasal Q2M PRN oxycodone 10 mg PO Q6H PRN 28 days quetiapine 200 mg PO BEDTIME sertraline 100 mg PO DAILY zolpidem 10 mg PO BEDTIME PRN HPI Comments Details: 47-year-old man with a history of longstanding hypertension nephrolithiasis here for follow-up. He has mild CKD. Serum creatinine is between 1.3 and 1.4 mg/dL. Today has no new complaints. Lisinopril was discontinued last visit and creatinine is marginally better No new issues Drinks 2 -3 Redbull a day [facility] Medical History Status post proximal row carpectomy of wrist (~08/23/22) Chronic kidney disease (CKD), stage III (moderate) Rupture of ligament of wrist Renal insufficiency Vitamin D deficiency Overweight (BMI 25.0-29.9) Depression Anxiety Insomnia Benign prostatic hyperplasia Bilateral carpal tunnel syndrome Thyroid nodule Migraine Impaired fasting glucose Pure hypercholesterolemia Benign essential hypertension Lumbar degenerative disc disease Surgical History History of lumbosacral spine surgery (~11/24/20) History of surgery on right wrist (~02/07/20) S/P lumbar and lumbosacral fusion by anterior technique (~11/24/20) History of surgery Deficient knowledge of spinal cord stimulator S/P aneurysm repair History of knee replacement procedure of right knee History of hemorrhoidectomy History of bladder surgery Family History Father Medical history unknown Mother Diabetes Hypertension Social History Housing: House Alcohol intake: former Patient Tobacco Use Status: Never used Tobacco e-Cigarette/Vaping Use: Never Used Second Hand Smoke Exposure: Yes service: No Current occupational status: unemployed Cognitive needs: No Hearing needs: No Vision needs: No Physical Exam Vital Signs: Last Vital Signs Pulse 78 05/01/24 10:35 BP 110/78 05/01/24 10:35 Pulse Ox 97 05/01/24 10:35 Oxygen Delivery Method Room Air 05/01/24 10:35 BMI result Body Mass Index 28.9 Comfortable Neck supple no JVD. Lungs entry equal no rales. Heart S1-S2 heard no gallop or rub. Abdomen soft nontender. Neuro alert awake oriented. No asterixis. Extremities no edema. Results Reviewed Nephrology Results: Hgb 15.4 g/dl (14.0-18.0) 03/20/24 WBC 8.0 X10*3/uL (4.8-10.8) 03/20/24 Plt Count 183 X10*3/uL (160-400) 03/20/24 Sodium 142 mmol/L (135-145) 03/20/24 Potassium 3.9 mmol/L (3.3-5.1) 03/20/24 Chloride 105 mmol/L (96-108) 03/20/24 Carbon Dioxide 32 mmol/L (22-29) H 03/20/24 BUN 14 mg/dL (9-16) 03/20/24 Creatinine 1.54 mg/dL (0.5-1.4) H 03/20/24 Calcium 9.6 mg/dL (8.4-10.2) 03/20/24 Urine Protein Negative mg/dL (Neg-Trace) 03/20/24 Urine Creatinine 273.10 mg/dL 03/20/24 Assessment & Plan Assessment & Plan (1) Chronic kidney disease (CKD), stage III (moderate): Code(s): N18.30 - Chronic kidney disease, stage 3 unspecified Category: Medical Qualifiers: Chronic kidney disease stage 3 subtype: stage 3a (GFR 45-59) Qualified Code(s): N18.31 - Chronic kidney disease, stage 3a (2) Nephrolithiasis: Code(s): N20.0 - Calculus of kidney Category: Medical Plan 47-year-old man is status CKD in setting of longstanding hypertension and there nephrolithiasis. Bp is well controlled There is serum creatinine fluctuates between 1.3 and 1.5 mg . For now I will hold off on using any RICHY inhibitors. Encouraged him to increase p.o. fluid intake. No evidence of any obstruction. Urine sediments with bland and no significant proteinuria in the past. Shall continue monitor for the same. Limit Redbull !! Orders: Orders Basic Metabolic Panel 4 Months N20.0 - Calculus of kidney Coding Level of Care Code Est Pt Level 4 (17687) Diagnoses Stage 3a chronic kidney disease N18.31 Chronic kidney disease stage 3 subtype: stage 3a (GFR 45-59) Nephrolithiasis N20.0
== END 2024-05-01 10:49 | disposition home or self-care (01) ==
PROVIDERS: PCP Internal Medicine; Visit Provider Internal Medicine Hypertension Specialist
DX: N18.31 Chronic kidney disease, stage 3a (principal); N20.0 Calculus of kidney
CPT/HCPCS: 99214

== ENCOUNTER → 2024-05-01 10:34 | Outpatient (BNVA) | payer OTHER, SELFPAY | PROVIDERS: PCP Internal Medicine; Visit Provider Internal Medicine Hypertension Specialist | DX: I12.9 Hypertensive chronic kidney disease with stage 1 through stage 4 chronic kidney disease, or unspecified chronic kidney disease (principal); N20.0 Calculus of kidney; N18.31 Chronic kidney disease, stage 3a | CPT/HCPCS: 99212 ==

== ENCOUNTER 2024-05-15 08:46 | Outpatient (AMB) | payer OTHER, SELFPAY ==
--- NOTE | 2024-05-15 08:52 | MHC.PC.OV ---
Vital Signs 05/15/24 08:54 Height 5 ft 9 in Weight 200 lb 2 oz BMI 29.6 BP 104/60 Blood Pressure Location Lt brachial Position Sitting Pulse 74 Pulse Source Pulse Oximeter Pulse Oximetry (%) 98 Oxygen Delivery Method Room Air Intake Visit Reasons: Annual exam Recreational Leader Required: No Accompanied by: Self / Same As Patient Allergies gabapentin Allergy (Unknown, Verified 05/15/24 09:11) trouble swallowing, swelling Medication List - Last Reconciled 05/15/24 by Desmond Montelongo MD amlodipine 2.5 mg PO DAILY atorvastatin 10 mg PO DAILY bupropion HCl XL 300 mg PO DAILY rjgdhqzhtw-mrjgsxbletynr-xhok 50-325-40 mg 1 cap PO ONCE PRN cholecalciferol (vitamin D3) (Vitamin D3) 25 mcg PO DAILY clonazepam 0.25 mg PO BID cyclobenzaprine 10 mg PO TID PRN hydrocortisone 1% (Anti-Itch (hydrocortisone)) 1 appl topical TID PRN naloxone 4 mg/actuation (Narcan) 4 mg intranasal Q2M PRN oxycodone 10 mg PO Q6H PRN 28 days quetiapine 200 mg PO BEDTIME sertraline 100 mg PO DAILY zolpidem 10 mg PO BEDTIME PRN Tobacco use date assessed: 05/15/24 Dental Screening Dental Screen Date: 05/15/24 Did you have a dental visit in the last 12 months?: Yes Did you have a dental problem in the last 6 months where you did not have access to dental care?: No Was dental information given to patient?: Patient has dentist HPI Annual exam HPI Details Patient comes in today for his annual physical examination States that he feels okay Denies any headaches or dizziness Denies any chest pains, no SOB No nausea/vomiting, no abdominal pain No change in bowel habits noted He denies any acute urinary symptoms States that his chronic low back pain remains adequately controlled on his current medications He had his follow up labs done last month - to discuss his results [facility] Medical History Status post proximal row carpectomy of wrist (~08/23/22) Chronic kidney disease (CKD), stage III (moderate) Rupture of ligament of wrist Renal insufficiency Vitamin D deficiency Overweight (BMI 25.0-29.9) Depression Anxiety Insomnia Benign prostatic hyperplasia Bilateral carpal tunnel syndrome Thyroid nodule Migraine Impaired fasting glucose Pure hypercholesterolemia Benign essential hypertension Lumbar degenerative disc disease Surgical History History of lumbosacral spine surgery (~11/24/20) History of surgery on right wrist (~02/07/20) S/P lumbar and lumbosacral fusion by anterior technique (~11/24/20) History of surgery Deficient knowledge of spinal cord stimulator S/P aneurysm repair History of knee replacement procedure of right knee History of hemorrhoidectomy History of bladder surgery Family History Father Medical history unknown Mother Diabetes Hypertension Social History Housing: House Alcohol intake: former Patient Tobacco Use Status: Never used Tobacco e-Cigarette/Vaping Use: Never Used Second Hand Smoke Exposure: Yes service: No Current occupational status: unemployed Cognitive needs: No Hearing needs: No Vision needs: No Questionnaire PHQ-9 Over the last 2 weeks, how often have you been bothered by any of the following problems? 1. Little interest or pleasure in doing things: several days 2. Feeling down, depressed, or hopeless: nearly every day 3. Trouble falling or staying asleep, or sleeping too much: several days 4. Feeling tired or having little energy: several days 5. Poor appetite or overeating: not at all 6. Feeling bad about yourself - or that you are a failure or have let yourself or your family down: not at all 7. Trouble concentrating on things, such as reading the newspaper or watching television: not at all 8. Moving or speaking so slowly that other people could have noticed. Or the opposite - being so fidgety or restless that you have been moving around a lot more than usual: not at all 9. Thoughts that you would be better off or of hurting yourself in some way: not at all Total score: 6 Depression Screening Interpretation: Positive Depression Screening Follow-up: Existing condition and In treatment Depression Screening Done: Yes 35302 - PHQ-9 Billing: Yes Source: Developed by Drs. Job Pleitez, Pat B.Simon Garcia and colleagues, with an educational delicia from [facility]. Thrive Questionnaire Date Thrive assessed: 05/15/24 I am a: Patient What is your living situation today?: I choose not to answer this question Within the past 12 months, did the food you bought not last and you didn't have the money to get more?: I choose not to answer this question Within the past 12 months, did you worry whether your food would run out before you got money to buy more?: I choose not to answer this question Do you have trouble paying for medicines?: No Do you have trouble getting transportation to medical appointments?: No Do you have trouble paying your heating and electricity bill?: No Do you have trouble taking care of your child, family member or friend?: I choose not to answer this question Do you have trouble with day-to-day activities such as bathing, preparing meals, shopping, managing finances, etc.?: No Are you currently unemployed and looking for a job?: I choose not to answer this question Are you interested in more education?: No Please select the resources that you would like help with: None Currently or been in a relationship where the following occur: I choose not to answer THRIVE Score: 0 AUDIT C Alcohol Use Questionnaire (AUDIT-C) 1. How often do you have a drink containing alcohol?: Never 3. How often do you have six or more drinks on one occasion?: Never Total Score: 0 Score Reviewed/Action Taken: Yes KARINA-7 AMB Questionnaire KARINA-7 Date KARINA - 7 assessed: 05/15/24 Feeling nervous, anxious, or on edge: 0 = Not at all Not being able to stop or control worryin = Not at all Worrying too much about different things: 1 = Several days Trouble relaxin = Not at all Being so restless that it is hard to sit still: 0 = Not at all Becoming easily annoyed or irritable: 0 = Not at all Feeling afraid as if something awful might happen: 0 = Not at all Total KARINA-7 score (0-4 normal; 5-9 mild; 10-14 moderate; 15-21 severe): 1 Source: Developed by Drs. Job Pleitez, Simon Ingram and colleagues, with an educational delicia from [facility]. Review of Systems Const Denies chills, Denies fatigue, Denies fever(s), Denies headache(s), Denies malaise and Denies weakness Eyes Denies blurry vision, Denies change in vision, Denies irritation and Denies itchy eyes ENT Denies dysphagia, Denies dizziness, Denies otalgia, Denies headache(s), Denies nasal congestion, Denies neck pain, Denies odynophagia and Denies sore throat Card Denies chest pain, Denies rapid heart rate, Denies irregular heart rhythm, Denies palpitations and Denies dyspnea Resp Denies chest congestion, Denies cough, Denies dyspnea and Denies wheezing GI Denies abdominal pain, Denies bloating, Denies constipation, Denies dysphagia, Denies heartburn, Denies diarrhea, Denies nausea, Denies odynophagia and Denies vomiting Denies hematuria, Denies difficulty urinating, Denies dysuria, Denies urinary frequency and Denies urinary urgency Musc Reports back pain (over the lower back - chronic), Denies arthralgias, Denies joint swelling, Denies muscle weakness and Denies neck pain Skin/Breast Denies change in pigmentation, Denies lesions, Denies rash and Denies unusual bruising Neuro Denies dizziness, Denies headache(s), Denies paresthesias and Denies weakness Endo Denies fatigue and Denies palpitations Aller/Immun Denies itchy eyes and Denies wheezing Physical exam (Primary Care) Vital Signs: Last Vital Signs Pulse 74 05/15/24 08:54 BP 104/60 05/15/24 08:54 Pulse Ox 98 05/15/24 08:54 Oxygen Delivery Method Room Air 05/15/24 08:54 BMI result Body Mass Index 29.6 Tobacco/Smoking Status: Tobacco use Status Tobacco use date assessed 05/15/24 05/15/24 08:59 Patient Tobacco Use Status Never used Tobacco 05/15/24 08:54 e-Cigarette/Vaping Use Never Used 05/15/24 08:54 PHQ-9: PHQ-9 Score PHQ-9: Total score 4 05/15/24 08:59 Depression Screening Interpretation: Positive Depression Screening Follow-up: Existing condition and In treatment Thrive Assessment: Date of Thrive Assessment Date Thrive assessed 05/15/24 05/15/24 08:59 Currently or been in a relationship where the following occur: I choose not to answer Const General: no acute distress, alert and awake Orientation/consciousness: patient oriented x3 HENMT Head: Yes normocephalic and Yes atraumatic Ears: external ears normal, TM's normal bilaterally and EAC's normal General nose exam: No nasal discharge present Face and sinus: Yes normal facial exam and Yes sinuses nontender Teeth and gingiva: dentition normal Throat: Yes posterior oropharynx normal and Yes tonsils normal (no TP congestion) Eyes Eyelids: Yes eyelids normal Conjunctivae: conjunctivae normal Pupils: Equal, round and reactive pupils present EOM: EOMs intact bilaterally Neck Neck: Yes supple and No lymphadenopathy Thyroid: Thyroid normal Resp Auscultation: clear to auscultation bilaterally, no rales and no wheezes Cardio Rate: regular rate Rhythm: regular rhythm Heart sounds: no murmurs GI Palpation (GI): Soft to palpation, nontender and No hepatosplenomegaly present Auscultation: normal bowel sounds General: Yes no CVA tenderness Back/Spine/Pelvis Back: no CVA tenderness Thoracic/Lumbar Spine: lumbar spinal tenderness Skin Lesions: no lesions Rashes: no rashes Neuro General: patient oriented x3, moves all extremities, no focal motor deficits and CN's II-XI intact bilaterally Cranial nerves: Yes Equal, round and reactive pupils present Cognition (Neuro): normal cognition Gait exam (Neuro): Normal gait present Extrem General: Yes no clubbing, cyanosis or edema Results Reviewed Results Reviewed: Laboratory Tests 03/20/24 03/20/24 04/12/24 11:32 14:53 09:11 WBC 8.0 Hgb 15.4 Hct 45.0 Plt Count 183 D Sodium 142 Potassium 3.9 Creatinine 1.54 H Estimated GFR 48 Fasting Glucose 103 H Calcium 9.6 AST 37 ALT 51 H Triglycerides 188 H Cholesterol 170 LDL Cholesterol, Calc 96 HDL Cholesterol 37 L PSA Screen 0.29 Total PSA 0.31 25-OH Vitamin D Total 37.1 TSH 2.49 Urine pH 5.5 Urine pH (Auto) 6.0 Ur Specific Bishop 1.025 Specific Bishop (Auto) 1.020 Urine Protein Negative Urine Protein (Auto) 0 Urine Glucose (UA) Negative Glucose (UA)(Auto) 0 Urine Blood Negative Urine Blood (Auto) 0 Urine Nitrite Negative Urine Nitrite (Auto) Negative Ur Leukocyte Esterase Trace H Leukocyte Esterase (Auto) 0 Urine Creatinine 273.10 Coding Level of Care Code Est Pt Prev Care 40-64y(09961) Diagnoses Annual physical exam Z00.00 Pure hypercholesterolemia E78.00 Benign essential hypertension I10 Stage 3a chronic kidney disease N18.31 Chronic kidney disease stage 3 subtype: stage 3a (GFR 45-59) Impaired fasting glucose R73.01 Degeneration of intervertebral disc of lumbar region with discogenic back pain M51.360 Disc-related pain type: discogenic back pain only Migraine without status migrainosus, not intractable, unspecified migraine type G43.909 Migraine type: unspecified Status migrainosus presence: without status migrainosus Intractability: not intractable Bilateral carpal tunnel syndrome G56.03 Thyroid nodule E04.1 Benign prostatic hyperplasia with urinary hesitancy N40.1; R39.11 Insomnia, unspecified type G47.00 Insomnia type: unspecified Anxiety F41.9 Depression, unspecified depression type F32.A Depression Type: unspecified Overweight (BMI 25.0-29.9) E66.3 Colon cancer screening Z12.11 Additional Codes PHQ-9 - 33790 - PHQ-9 Billing: Yes ([id number]) Assessment & Plan Assessment & Plan (1) Annual physical exam: Code(s): Z00.00 - Encounter for general adult medical examination without abnormal findings Category: Medical Plan: Results of his labs done last month reviewed and discussed with patient He has never had a screening colonoscopy done in the past (2) Pure hypercholesterolemia: Code(s): E78.00 - Pure hypercholesterolemia, unspecified Category: Medical Plan: Reinforced low cholesterol diet Continue Atorvastatin 10 mg QD Will recheck his labs and fasting lipids in 4 months for follow-up (3) Benign essential hypertension: Code(s): I10 - Essential (primary) hypertension Category: Medical Plan: Reinforced low sodium diet - goal is systolic BP of 120 mm or less Continue Amlodipine 2.5 mg QD He was on Lisinopril 10 mg QD but this was discontinued by nephrology recently due to his declining renal function (4) Chronic kidney disease (CKD), stage III (moderate): Code(s): N18.30 - Chronic kidney disease, stage 3 unspecified Category: Medical Qualifiers: Chronic kidney disease stage 3 subtype: stage 3a (GFR 45-59) Qualified Code(s): N18.31 - Chronic kidney disease, stage 3a Plan: His GFR and renal function appears stable again on his recent labs done last month, especially with discontinuation of Lisinopril Renal US done in December 2021 came out normal, with small right renal cysts - no follow up imaging studies required Patient is encouraged to continue to increase his oral fluid intake consistently and to also cut back on his intake of Red Bull, which he states he drinks a lot of Will continue to monitor his renal function closely Follow up with nephrology as scheduled (5) Impaired fasting glucose: Code(s): R73.01 - Impaired fasting glucose Category: Medical Plan: His FBS was at 103 mg/dl on his labs done last month HgbA1c has been normal at 5.5% and 5.4% when previously checked Reinforced low calorie/low carb diet;exercise as tolerated Have advised patient that Red Bull contains high amounts of sugar and caffeine and cutting back on these should also help with his blood sugar (6) Lumbar degenerative disc disease: Code(s): M51.36 - Other intervertebral disc degeneration, lumbar region Category: Medical Qualifiers: Disc-related pain type: discogenic back pain only Qualified Code(s): M51.360 - Other intervertebral disc degeneration, lumbar region with discogenic back pain only Plan: S/P anterior lumbar interbody fusion of L5-S1 by Dr. Philip on 11/24/2020 Reinforced activity and weight lifting restrictions Continue Oxycodone 10 mg every 6 hours as needed for increased pain Patient is reminded/cautioned again to avoid all NSAIDs completely as they can adversely affect his renal function (7) Migraine: Code(s): G43.909 - Migraine, unspecified, not intractable, without status migrainosus Category: Medical Qualifiers: Migraine type: unspecified Status migrainosus presence: without status migrainosus Intractability: not intractable Qualified Code(s): G43.909 - Migraine, unspecified, not intractable, without status migrainosus Plan: Stable/controlled Continue Fioricet 50-325-40 mg 1 tablet 3 to 4 times a day as needed for headaches Patient used to take Topiramate 25 mg Q HS for migraine headache prophylaxis but appears to have stopped taking this a few years ago - states that his headaches have not really gotten any worse since he quit taking his Topiramate (8) Bilateral carpal tunnel syndrome: Code(s): G56.03 - Carpal tunnel syndrome, bilateral upper limbs Category: Medical Plan: S/P right wrist tendon repair by Dr. Moyer on 09/08/2020 for rupture of ligament of the right wrist and more recently, S/P proximal row carpectomy on 08/23/22 Follow up with orthopedics as scheduled or as needed (9) Thyroid nodule: Code(s): E04.1 - Nontoxic single thyroid nodule Category: Medical Plan: Stable - repeat thyroid US done in March 2021 came out normal At the time, we have decided to at least consider getting a follow up US in 3 years (03/2024) - will now order repeat thyroid US for follow up He was last seen by endocrinology (Dr. Antunez) in March 2018 and was recommended to repeat his TFTs every few months for follow up He was also advised that given the long-term stability of his thyroid nodule, he can just see his PCP for this and no longer needs to follow up with endocrinology on a regular basis unless something changes or something new occurs Patient is again reassured that his TFTs were normal on his recent labs (10) Benign prostatic hyperplasia with urinary hesitancy: Code(s): N40.1 - Benign prostatic hyperplasia with lower urinary tract symptoms; R39.11 - Hesitancy of micturition Category: Medical Plan: His PSA on his recent labs done last month again came out normal Follow up with urology as scheduled (11) Insomnia: Code(s): G47.00 - Insomnia, unspecified Category: Medical Qualifiers: Insomnia type: unspecified Qualified Code(s): G47.00 - Insomnia, unspecified Plan: Sleep hygiene reinforced Continue Zolpidem 10 mg Q HS PRN (12) Anxiety: Code(s): F41.9 - Anxiety disorder, unspecified Category: Medical Plan: Continue Clonazepam 0.5 mg BID PRN (13) Depression: Code(s): F32.9 - Major depressive disorder, single episode, unspecified Category: Medical Qualifiers: Depression Type: unspecified Qualified Code(s): F32.A - Depression, unspecified Plan: Continue Quetiapine 200 mg Q HS, Sertraline 100 mg QD and Bupropion ER 300 mg QD Follow up with psychiatry as scheduled (14) Overweight (BMI 25.0-29.9): Code(s): E66.3 - Overweight Category: Medical Plan: Reinforced diet/exercise as tolerated/lose weight (15) Colon cancer screening: Code(s): Z12.11 - Encounter for screening for malignant neoplasm of colon Category: Medical Plan: Patient states that he has never had a screening colonoscopy done in the past Have advised him that it is past time for him to start doing so and he agrees to going for the procedure Will refer him to GI to start his colon cancer screening Plan Follow up in 4 months Orders: Orders thyroid Today E04.1 - Nontoxic single thyroid nodule Complete Blood Count Auto Diff 08/25/24 D64.9 - Anemia, unspecified Comprehensive [place]. Panel Fast 08/25/24 E78.00 - Pure hypercholesterolemia, unspecified TSH reflex Free T4 08/25/24 E78.00 - Pure hypercholesterolemia, unspecified UA CC w/rflx Micro + Cult 08/25/24 R30.0 - Dysuria Hemoglobin A1c 08/25/24 R73.01 - Impaired fasting glucose Lipid Panel 08/25/24 E78.00 - Pure hypercholesterolemia, unspecified Referrals Gastroenterology Referral Z12.11 - Encounter for screening for malignant neoplasm of colon
[2024-05-15 08:54] VITALS: BP 104/60; PULSE 74; O2SAT 98; BMI 29.6
--- OUTSIDE RECORDS SUMMARY | 2024-05-15 09:06 | XMS_ITS | Clinical Summary ---
Author Organization [facility], Address [address] [place] [address] Phone Care Team Providers Care Pin Drafter Operator Name Role Phone Unavailable Primary Care Provider Unavailabl e Allergies No known active allergies Medications Butalbital-APAP -Caffeine 50-300-40 MG capsule Active QUEtiapine (SEROquel) 200 MG tablet Take 1 tablet by mouth 1 (one) time each day Active zolpidem (AMBIEN) 10 MG tablet Take 1 tablet by mouth at bed time Active atorvastatin (LIPITOR) 10 MG tablet 1 Active oxyCODONE (ROXICODONE) 10 MG immediate release tablet TAKE 1 TABLET BY MOUTH EVERY 6 HOURS NEEDED FOR PAIN 1 Active sertraline (ZOLOFT) 50 MG tablet Take 50 mg by mouth 1 (one) time each day in the morning 1 Active buPROPion XL (WELLBUTRIN XL) 150 MG 24 hr tablet Take 150 mg by mouth 1 Active clonazePAM (KlonoPIN) 0.5 MG tablet Take 0.5 mg by mouth 3 Active gabapentin (NEURONTIN) 300 MG capsule Take 200 mg by mouth 1 Active buPROPion XL (WELLBUTRIN XL) 300 MG 24 hr tablet Take 300 mg by mouth 1 (one) time each day Do not crush, chew, or split. Active amLODIPine (NORVASC) 2.5 MG tablet TAKE 1 TABLET BY MOUTH 1 TIME EACH DAY. 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 12/09/2022 Blood in urine 10/27/2020 Chronic kidney disease stage 1 10/27/2020 Hypertensive renal disease 10/27/2020 Renal stone 10/27/2020 Family History Medical History Relation Comments Diabetes Father Heart disease Father Hypertension Father Diabetes Mother Relation Status Comments Father Unknown Mother Unknown Social History Tobacco Use Types Packs/Day Years Used Date Smoking Tobacco: Never Smokeless Tobacco: Never Tobacco Cessation:Counseling Given: Not Answered Alcohol Use Standard Drinks/Week Comments No 0 (1 standard drink = 0.6 oz pur e alcohol) Sex and Gender Information Value Date Recorded Sex Assigned at Not on file Legal Sex Male 5:01 PM EST Gender Identity Not on file Sexual Orientation Not on file Last Filed Vital Signs Vital Sign Reading Time Taken Comments Blood Pressure 140/82 06/02/2023 2:18 PM EST Pulse 87 06/02/2023 2:18 PM EST Temperature 36.1 ??C (97 ??F) 10/31/2020 10:49 AM EDT Respiratory Rate - - Oxygen Saturation 98% 12/09/2022 1:14 PM EDT Inhaled Oxygen Concentration - - Weight 91.2 kg (201 lb) 06/02/2023 2:18 PM EST Height 175.3 cm (5' 9 ) 10/31/2020 10:49 AM EDT Body Mass Index 29.68 10/31/2020 10:49 AM EDT Plan of Treatment Health Maintenance Due Date Last Done Comments Pneumococcal Vaccine: Pediat rics (0 to 5 Years) and At-Risk Patients (6 to 64 Years) (1 of 2 - PCV) 1981 Hepatitis B Vaccine (1 of 3 - 19+ 3-dose series) 04/08 Influenza Vaccine (#1) 2023 Colorectal Cancer Screening: Annual FOBT 2024 Colorectal Cancer Screening: Colonoscopy 2024 Colorectal Cancer Screening: Sigmoidoscopy 2024 Insurance [facility]
== END 2024-05-15 09:35 | disposition home or self-care (01) ==
PROVIDERS: PCP Internal Medicine; Visit Provider Internal Medicine
DX: Z00.00 Encounter for general adult medical examination without abnormal findings (principal); E78.00 Pure hypercholesterolemia, unspecified; I10 Essential (primary) hypertension; N18.31 Chronic kidney disease, stage 3a; R73.01 Impaired fasting glucose; M51.360 Other intervertebral disc degeneration, lumbar region with discogenic back pain only; G43.909 Migraine, unspecified, not intractable, without status migrainosus; G56.03 Carpal tunnel syndrome, bilateral upper limbs; E04.1 Nontoxic single thyroid nodule; N40.1 Benign prostatic hyperplasia with lower urinary tract symptoms; R39.11 Hesitancy of micturition; G47.00 Insomnia, unspecified; F41.9 Anxiety disorder, unspecified; F32.A Depression, unspecified; E66.3 Overweight; Z12.11 Encounter for screening for malignant neoplasm of colon

== ENCOUNTER → 2024-05-15 08:46 | Outpatient (BNVA) | payer OTHER, SELFPAY | PROVIDERS: PCP Internal Medicine; Visit Provider Internal Medicine | DX: Z00.00 Encounter for general adult medical examination without abnormal findings (principal); E78.00 Pure hypercholesterolemia, unspecified; I12.9 Hypertensive chronic kidney disease with stage 1 through stage 4 chronic kidney disease, or unspecified chronic kidney disease; N18.31 Chronic kidney disease, stage 3a; R73.01 Impaired fasting glucose; M51.360 Other intervertebral disc degeneration, lumbar region with discogenic back pain only; G43.909 Migraine, unspecified, not intractable, without status migrainosus; G56.03 Carpal tunnel syndrome, bilateral upper limbs; E04.1 Nontoxic single thyroid nodule; N40.1 Benign prostatic hyperplasia with lower urinary tract symptoms; R39.11 Hesitancy of micturition; G47.00 Insomnia, unspecified; F41.9 Anxiety disorder, unspecified; F32.A Depression, unspecified; E66.3 Overweight; Z68.29 Body mass index [BMI] 29.0-29.9, adult | CPT/HCPCS: 96127; 99396 ==

== ENCOUNTER → 2024-05-24 14:46 | Outpatient (REF) | payer OTHER, SELFPAY | END | disposition home or self-care (01) | LOC: HO.US 14:46 | PROVIDERS: PCP Internal Medicine; Visit Provider Internal Medicine | DX: E04.1 Nontoxic single thyroid nodule (principal) ==

== ENCOUNTER → 2024-05-24 14:48 | Outpatient (BNV) | payer OTHER, SELFPAY | PROVIDERS: PCP Internal Medicine; Visit Provider Radiology Diagnostic Radiology | DX: E04.9 Nontoxic goiter, unspecified (principal) | CPT/HCPCS: 76536 ==

== ENCOUNTER 2024-07-31 12:45 | Outpatient (AMB) | payer OTHER, SELFPAY ==
--- NOTE | 2024-07-31 12:58 | AM.OFFVISNUR ---
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 unit/0.1 mL intradermal injection solution Performing Provider: Desmond Montelongo MD Performing Location: [facility] [place] [facility] Administered by: Brenda Gordon RN on 07/31/24 12:58 Dose Route Admin Location Dispensed Lot Number Expiration Date [facility] Admissions Clerk 0.1 mL intradermal left forarm 0.1 mL [id number] 03/17/27 56227-122-97 [employer] Assessment & Plan Assessment & Plan Orders: Orders AMB PPD Planted Today Z11.1 - Encounter for screening for respiratory tuberculosis Medications: New tuberculin PPD 0.1 mL intradermal ONCE 0.1 mL 0RF Z11.1 - Encounter for screening for respiratory tuberculosis Coding
--- OUTSIDE RECORDS SUMMARY | 2024-07-31 15:30 | XMS_ITS | Clinical Summary ---
Author Organization [facility], Address [address] [place] [address] Phone Care Team Providers Care General Agent Name Role Phone Unavailable Primary Care Provider [...] Health Maintenance Due Date Last Done Comments Hepatitis B Vaccine (1 of 3 - 19+ 3-dose series) 04/08 Pneumococcal Vaccine: Peds ( 0 to 5 Years) and At-Risk Patients (6 to 49 Years) (1 of 2 - PCV) 1994 Colorectal Cancer Screening: Annual FOBT 2024 Colorectal Cancer Screening: Colonoscopy 2024 Colorectal Cancer Screening: Sigmoidoscopy 2024 Influenza Vaccine (Season Ended) 2024 Insurance [facility]
== END 2024-07-31 12:59 | disposition home or self-care (01) ==
LOC: HO.HMCH 12:45
PROVIDERS: PCP Internal Medicine; Visit Provider Internal Medicine
DX: Z11.1 Encounter for screening for respiratory tuberculosis (principal)

== ENCOUNTER → 2024-07-31 12:45 | Outpatient (BNVA) | payer OTHER, SELFPAY | PROVIDERS: PCP Internal Medicine; Visit Provider Internal Medicine | DX: Z11.1 Encounter for screening for respiratory tuberculosis (principal) | CPT/HCPCS: 86580 ==

== ENCOUNTER → 2024-08-02 13:06 | Outpatient (BNVA) | payer OTHER, SELFPAY | PROVIDERS: PCP Internal Medicine; Visit Provider Internal Medicine ==

== ENCOUNTER 2024-08-24 11:41 | Outpatient (REF) | payer OTHER, SELFPAY ==
[2024-08-24 12:08] LABS: MANUAL DIFF FLAG NO
--- OUTSIDE RECORDS SUMMARY | 2024-08-24 12:08 | XMS_ITS | Clinical Summary ---
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
[2024-08-24 12:23] LABS: Basophils Absolute Auto 0.1 X10*3/uL (0.0-0.2); Basophils Percent Auto 0.5 % (0-2); Eosinophils Absolute Auto 0.3 X10*3/uL (0.0-0.4); Eosinophils Percent Auto 2.6 % (0-4); Hematocrit 47.5 % (42.0-52.0); Hemoglobin 16.2 g/dl (14.0-18.0); Imm Gran Abs Auto 0.09 X10*3/uL (0.00-0.03); Imm Gran Pct Auto 0.8 % (0.0-0.4); Lymphocytes Absolute Auto 2.3 X10*3/uL (1.2-4.9); Lymphocytes Percent Auto 21.3 % (20-40); Mean Corpuscular HGB Conc 34.1 g/dl (31.0-36.0); Mean Corpuscular Hemoglobin 30.3 pg (27.0-33.0); Mean Platelet Volume 9.9 fL (9.4-12.4); Monocytes Absolute Auto 0.9 X10*3/uL (0.1-1.2); Monocytes Percent Auto 8.5 % (2-11); Neutrophils Absolute Auto 7.1 x10*3/uL (2.0-8.3); Neutrophils Percent Auto 66.3 % (45-73); Platelet Count 223 X10*3/uL (160-400); Red Blood Count 5.34 X10*6/uL (4.60-5.80); Red Cell Distribution Width 11.9 % (11.0-16.0); White Blood Count 10.7 X10*3/uL (4.8-10.8)
[2024-08-24 12:33] LABS: Estimated Average Glucose 111 mg/dL; Hemoglobin A1c % 5.5 % (<6.0); Total Hemoglobin (HGBA1C) 4126.7771 umol/L
[2024-08-24 12:56] LABS: Alanine Aminotransferase 40 U/L (0-40); Albumin Level 4.7 g/dL (3.5-5.0); Alkaline Phosphatase 94 U/L (39-117); Anion Gap 9 (12-20); Aspartate Amino Transferase 24 U/L (5-37); Bilirubin Total 0.5 mg/dL (0.0-1.0); Blood Urea Nitrogen 15 mg/dL (9-16); Calcium 9.8 mg/dL (8.4-10.2); Carbon Dioxide 31 mmol/L (22-29); Chloride 103 mmol/L (96-108); Cholesterol 168 mg/dL (<200); Estimated Glomerular Filt Rate 42; Glucose Fasting 104 mg/dL (60-99); Glucose Random 104 mg/dL (60-115); HDL Cholesterol 42 mg/dL (>40); LDL Cholesterol Calculated 78 mg/dL (<100); Potassium 4.6 mmol/L (3.3-5.1); Sodium 138 mmol/L (135-145); Total Protein 7.3 g/dL (6.5-8.0); Triglycerides 240 mg/dL (<150)
[2024-08-24 13:14] LABS: TSH reflex Free T4 1.97 uIU/mL (0.32-4.0)
[2024-08-24 13:40] LABS: Appearance Urine Clear; Color Urine Yellow; Glucose Urine UA Negative (Negative); Leukocyte Esterase Urine Negative (Negative); Nitrite Urine Negative (Negative); Specific Gravity - Urine 1.025 (1.005-1.025); Urine Blood Negative (Negative); Urine Ketones Trace mg/dL (Negative); Urine Protein Negative (Neg-Trace)
== END 2024-08-24 11:42 | disposition home or self-care (01) ==
LOC: HO.LAB 11:41
PROVIDERS: Internal Medicine; Visit Provider Internal Medicine Hypertension Specialist
DX: N20.0 Calculus of kidney (principal); R30.0 Dysuria; R73.01 Impaired fasting glucose; E78.00 Pure hypercholesterolemia, unspecified; D64.9 Anemia, unspecified
CPT/HCPCS: 36415; 80048; 80053; 80061; 81003; 83036; 84300; 84443; 85025

== ENCOUNTER 2024-08-28 09:49 | Outpatient (AMB) | payer OTHER, SELFPAY ==
[2024-08-28 09:56] VITALS: BP 114/70; PULSE 81; O2SAT 96; BMI 29.2
--- NOTE | 2024-08-28 09:56 | HO.NEPHOV_ITS ---
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 Teacher Required: Yes Plant Anatomy Teacher Name: [id number] jaylan Accompanied by: Self / Same As Patient Allergies gabapentin Allergy (Unknown, Verified 08/28/24 10:00) trouble swallowing, swelling Medication List - Last Reconciled 08/28/24 by Jose Lynch MD amlodipine 2.5 mg PO DAILY atorvastatin 10 mg PO DAILY bupropion HCl XL 300 mg PO DAILY blhbbydkjs-eiddsowzrdfxr-uakw 50-325-40 mg 1 cap PO ONCE PRN cholecalciferol (vitamin D3) (Vitamin D3) 25 mcg PO DAILY clonazepam 0.25 mg PO BID cyclobenzaprine 10 mg PO TID PRN hydrocortisone 1% (Anti-Itch (hydrocortisone)) 1 appl topical TID PRN naloxone 4 mg/actuation (Narcan) 4 mg intranasal Q2M PRN oxycodone 10 mg PO Q6H PRN 28 days quetiapine 200 mg PO BEDTIME sertraline 100 mg PO DAILY zolpidem 10 mg PO BEDTIME PRN HPI Comments Details: 49-year-old man with a history of longstanding hypertension nephrolithiasis here for follow-up. He has mild CKD. Serum creatinine is between 1.3 and 1.4 mg/dL. Today has no new complaints. Lisinopril was discontinued last visit and creatinine is marginally better No new issues Drinks 2 -3 Redbull a day 08/28/24 49-year-old male presenting with decreased renal function. Over the past year, his kidney function has progressively declined, with GFR measurements of 56%, 48%, and 42%, respectively, at different intervals. His urinary symptoms are limited to nocturia, with no reported dysuria, nausea, or vomiting. He previously consumed multiple caffeinated beverages heavily but has reduced this habit recently. He also admits to taking creatinine supplements, which may be affecting his renal function tests. The patient's BUN remains stable, indicating the creatinine elevation is likely linked to his creatine supplementation. A 24- hour urine collection is planned to assess creatinine clearance more accurately. [facility] Medical History Status post proximal row carpectomy of wrist (~08/23/22) Chronic kidney disease (CKD), stage III (moderate) Rupture of ligament of wrist Renal insufficiency Vitamin D deficiency Overweight (BMI 25.0-29.9) Depression Anxiety Insomnia Benign prostatic hyperplasia Bilateral carpal tunnel syndrome Thyroid nodule Migraine Impaired fasting glucose Pure hypercholesterolemia Benign essential hypertension Lumbar degenerative disc disease Surgical History History of lumbosacral spine surgery (~11/24/20) History of surgery on right wrist (~02/07/20) S/P lumbar and lumbosacral fusion by anterior technique (~11/24/20) History of surgery Deficient knowledge of spinal cord stimulator S/P aneurysm repair History of knee replacement procedure of right knee History of hemorrhoidectomy History of bladder surgery Family History Father Medical history unknown Mother Diabetes Hypertension Social History Housing: House Alcohol intake: former Patient Tobacco Use Status: Never used Tobacco e-Cigarette/Vaping Use: Never Used Second Hand Smoke Exposure: Yes service: No Current occupational status: unemployed Cognitive needs: No Hearing needs: No Vision needs: No Physical Exam Vital Signs: Last Vital Signs Pulse 81 08/28/24 09:56 BP 114/70 08/28/24 09:56 Pulse Ox 96 08/28/24 09:56 Oxygen Delivery Method Room Air 08/28/24 09:56 BMI result Body Mass Index 29.2 Comfortable Neck supple no JVD. Lungs entry equal no rales. Heart S1-S2 heard no gallop or rub. Abdomen soft nontender. Neuro alert awake oriented. No asterixis. Extremities no edema. Results Reviewed Nephrology Results: Hgb 16.2 g/dl (14.0-18.0) 08/24/24 WBC 10.7 X10*3/uL (4.8-10.8) 08/24/24 Plt Count 223 X10*3/uL (160-400) 08/24/24 Sodium 138 mmol/L (135-145) 05/09/25 Potassium 4.6 mmol/L (3.3-5.1) 08/24/24 Chloride 103 mmol/L (96-108) 08/24/24 Carbon Dioxide 31 mmol/L (22-29) H 08/24/24 BUN 15 mg/dL (9-16) 08/24/24 Creatinine 1.73 mg/dL (0.5-1.4) H 08/24/24 Calcium 9.8 mg/dL (8.4-10.2) 08/24/24 Urine Protein Negative mg/dL (Neg-Trace) 08/24/24 Assessment & Plan Assessment & Plan (1) Chronic kidney disease (CKD), stage III (moderate): Code(s): N18.30 - Chronic kidney disease, stage 3 unspecified Category: Medical Qualifiers: Chronic kidney disease stage 3 subtype: stage 3a (GFR 45-59) Qualified Code(s): N18.31 - Chronic kidney disease, stage 3a (2) Nephrolithiasis: Code(s): N20.0 - Calculus of kidney Category: Medical Plan 49-year-old man is status CKD in setting of longstanding hypertension and there nephrolithiasis. Bp is well controlled For now I will hold off on using any RICHY inhibitors. Encouraged him to increase p.o. fluid intake. No evidence of any obstruction. Urine sediments with bland and no significant proteinuria in the past. Shall continue monitor for the same. Limit Redbull !! 08/28/24 I recommend discontinuing the creatine supplement due to its probable effect on creatinine levels, considering the stable BUN. A 24-hour urine test for creatinine clearance is required to evaluate renal function accurately without supplement interference. Stopping creatine should help in assessing true renal health, and reducing caffeine intake might mitigate nocturia symptoms. Follow-up is planned in four weeks after completing the urine test to reassess and adjust management as necessary. If renal fx remains suppressed,would obtain further work up including USG Orders: Orders Creatinine Clearance Urine 24U Today N18.31 - Chronic kidney disease, stage 3a Basic Metabolic Panel Today N18.31 - Chronic kidney disease, stage 3a Protein, 24 Hr Urine Group Today N18.31 - Chronic kidney disease, stage 3a Coding Level of Care Code Est Pt Level 4 (63444) Diagnoses Stage 3a chronic kidney disease N18.31 Chronic kidney disease stage 3 subtype: stage 3a (GFR 45-59) Nephrolithiasis N20.0
--- OUTSIDE RECORDS SUMMARY | 2024-08-28 10:37 | XMS_ITS | Clinical Summary ---
Author Organization [facility], Address [address] [place] [address] Phone Care Team Providers Care World History Teacher Name Role Phone Unavailable Primary Care Provider [...] 2024 Influenza Vaccine (Season Ended) 2024 Insurance [facility]
== END 2024-08-28 10:12 | disposition home or self-care (01) ==
LOC: HO.HKA 09:51
PROVIDERS: PCP Internal Medicine; Visit Provider Internal Medicine Hypertension Specialist
DX: N18.31 Chronic kidney disease, stage 3a (principal); N20.0 Calculus of kidney
CPT/HCPCS: 99214

== ENCOUNTER → 2024-08-28 09:49 | Outpatient (BNVA) | payer OTHER, SELFPAY | PROVIDERS: PCP Internal Medicine; Visit Provider Internal Medicine Hypertension Specialist | DX: N18.31 Chronic kidney disease, stage 3a (principal); N20.0 Calculus of kidney | CPT/HCPCS: 99212 ==

== ENCOUNTER 2024-09-03 09:58 | Outpatient (REF) | payer OTHER, SELFPAY ==
--- OUTSIDE RECORDS SUMMARY | 2024-09-03 10:24 | XMS_ITS | Clinical Summary ---
Author Organization [facility] [place], Address [address] [place] [address] Phone Care Team Providers Care Manager Multicultural Name Role Phone Unavailable Primary Care Provider [...] 2024 Influenza Vaccine (Season Ended) 2024 Insurance [facility]
[2024-09-03 11:13] LABS: Creatinine, mg/dL 92.88; Protein mg/dL < 7 mg/dL
[2024-09-03 11:44] LABS: Anion Gap 12 (12-20); Blood Urea Nitrogen 14 mg/dL (9-16); Calcium 9.7 mg/dL (8.4-10.2); Carbon Dioxide 30 mmol/L (22-29); Chloride 103 mmol/L (96-108); Estimated Glomerular Filt Rate 54; Glucose Random 86 mg/dL (60-115); Sodium 141 mmol/L (135-145)
[2024-09-03 12:31] LABS: Creatinine, 24Hr Urine 1.9 G/Day (1.0-2.0); Protein 24 Hr Urine < 145 mg/Day (<150); Total Volume 24 Hour Urine 2075 mL
[2024-09-03 12:33] LABS: Creatinine Clearance 95.5 mL/min (85-125)
== END 2024-09-03 09:59 | disposition home or self-care (01) ==
LOC: HO.LAB 09:58
PROVIDERS: PCP Internal Medicine; Visit Provider Internal Medicine Hypertension Specialist
DX: N18.31 Chronic kidney disease, stage 3a (principal)
CPT/HCPCS: 36415; 80048; 82575; 84156

== ENCOUNTER 2024-09-11 15:02 | Outpatient (AMB) | payer OTHER, SELFPAY ==
[2024-09-11 15:04] VITALS: BP 110/78; PULSE 65; O2SAT 96; BMI 29.0
--- NOTE | 2024-09-11 15:04 | A.OFFPC_ITS ---
Vital Signs 09/11/24 15:04 Height 5 ft 9 in Weight 196 lb 6 oz BMI 29.0 BP 110/78 Blood Pressure Location Lt brachial Position Sitting Pulse 65 Pulse Source Pulse Oximeter Pulse Oximetry (%) 96 Oxygen Delivery Method Room Air Intake Visit Reasons: HTN, CKD, IFG, hyperlipidemia, lumbar DDD Contact Center Associate Required: No Accompanied by: Self / Same As Patient Allergies gabapentin Allergy (Unknown, Verified 09/11/24 15:38) trouble swallowing, swelling Medication List - Last Reconciled 09/11/24 by Desmond Montelongo MD amlodipine 2.5 mg PO DAILY atorvastatin 10 mg PO DAILY bupropion HCl XL 300 mg PO DAILY cbrsmjobso-vljnwlrcjoeab-ukzc 50-325-40 mg 1 cap PO ONCE PRN cholecalciferol (vitamin D3) (Vitamin D3) 25 mcg PO DAILY clonazepam 0.25 mg PO BID cyclobenzaprine 10 mg PO TID PRN hydrocortisone 1% (Anti-Itch (hydrocortisone)) 1 appl topical TID PRN naloxone 4 mg/actuation (Narcan) 4 mg intranasal Q2M PRN oxycodone 10 mg PO Q6H PRN 28 days quetiapine 200 mg PO BEDTIME sertraline 100 mg PO DAILY zolpidem 10 mg PO BEDTIME PRN Tobacco use date assessed: 09/11/24 Dental Screening Dental Screen Date: 09/11/24 Did you have a dental visit in the last 12 months?: No Did you have a dental problem in the last 6 months where you did not have access to dental care?: No Was dental information given to patient?: Patient has dentist HPI HTN, CKD, IFG, hyperlipidemia, lumbar DDD HPI Details Patient comes in today for his follow up visit States that he feels okay and that his chronic low back pain remains adequately controlled on his current medications He denies any headaches or dizziness Denies any chest pains, no SOB No nausea/vomiting, no abdominal pain No change in bowel habits noted He had his follow up labs done about 2 to 3 weeks ago - to discuss his results [facility] Medical History Status post proximal row carpectomy of wrist (~08/23/22) Chronic kidney disease (CKD), stage III (moderate) Rupture of ligament of wrist Renal insufficiency Vitamin D deficiency Overweight (BMI 25.0-29.9) Depression Anxiety Insomnia Benign prostatic hyperplasia Bilateral carpal tunnel syndrome Thyroid nodule Migraine Impaired fasting glucose Pure hypercholesterolemia Benign essential hypertension Lumbar degenerative disc disease Surgical History History of lumbosacral spine surgery (~11/24/20) History of surgery on right wrist (~02/07/20) S/P lumbar and lumbosacral fusion by anterior technique (~11/24/20) History of surgery Deficient knowledge of spinal cord stimulator S/P aneurysm repair History of knee replacement procedure of right knee History of hemorrhoidectomy History of bladder surgery Family History Father Medical history unknown Mother Diabetes Hypertension Social History Housing: House Alcohol intake: former Patient Tobacco Use Status: Never used Tobacco e-Cigarette/Vaping Use: Never Used Second Hand Smoke Exposure: Yes service: No Current occupational status: unemployed Cognitive needs: No Hearing needs: No Vision needs: No Questionnaire PHQ-9 Over the last 2 weeks, how often have you been bothered by any of the following problems? 1. Little interest or pleasure in doing things: not at all 2. Feeling down, depressed, or hopeless: not at all 3. Trouble falling or staying asleep, or sleeping too much: nearly every day 4. Feeling tired or having little energy: not at all 5. Poor appetite or overeating: not at all 6. Feeling bad about yourself - or that you are a failure or have let yourself or your family down: not at all 7. Trouble concentrating on things, such as reading the newspaper or watching television: not at all 8. Moving or speaking so slowly that other people could have noticed. Or the opposite - being so fidgety or restless that you have been moving around a lot more than usual: not at all 9. Thoughts that you would be better off or of hurting yourself in some way: not at all Total score: 3 Depression Screening Interpretation: Negative Depression Screening Done: Yes 41066 - PHQ-9 Billing: Yes Source: Developed by Drs. Job Pleitez, Simon Ingram and colleagues, with an educational delicia from [employer]. Thrive Questionnaire Date Thrive assessed: 09/11/24 I am a: Patient What is your living situation today?: I choose not to answer this question Within the past 12 months, did the food you bought not last and you didn't have the money to get more?: I choose not to answer this question Within the past 12 months, did you worry whether your food would run out before you got money to buy more?: I choose not to answer this question Do you have trouble paying for medicines?: No Do you have trouble getting transportation to medical appointments?: No Do you have trouble paying your heating and electricity bill?: No Do you have trouble taking care of your child, family member or friend?: I choose not to answer this question Do you have trouble with day-to-day activities such as bathing, preparing meals, shopping, managing finances, etc.?: No Are you currently unemployed and looking for a job?: I choose not to answer this question Are you interested in more education?: No Please select the resources that you would like help with: None Currently or been in a relationship where the following occur: I choose not to answer THRIVE Score: 0 AUDIT C Alcohol Use Questionnaire (AUDIT-C) 1. How often do you have a drink containing alcohol?: Never 3. How often do you have six or more drinks on one occasion?: Never Total Score: 0 Score Reviewed/Action Taken: Yes KARINA-7 AMB Questionnaire KARINA-7 Date KARINA - 7 assessed: 09/11/24 Feeling nervous, anxious, or on edge: 0 = Not at all Not being able to stop or control worryin = Not at all Worrying too much about different things: 1 = Several days Trouble relaxin = Not at all Being so restless that it is hard to sit still: 0 = Not at all Becoming easily annoyed or irritable: 0 = Not at all Feeling afraid as if something awful might happen: 0 = Not at all Total KARINA-7 score (0-4 normal; 5-9 mild; 10-14 moderate; 15-21 severe): 1 Source: Developed by Drs. Job Pleitez, Simon Ingram and colleagues, with an educational delicia from [employer]. Review of Systems Const Denies chills, Denies fatigue, Denies fever(s) and Denies headache(s) ENT Denies dysphagia, Denies dizziness, Denies otalgia, Denies headache(s), Denies neck pain, Denies odynophagia and Denies sore throat Card Denies chest pain, Denies irregular heart rhythm, Denies palpitations and Denies dyspnea Resp Denies chest congestion, Denies cough and Denies dyspnea GI Denies abdominal pain, Denies constipation, Denies dysphagia, Denies heartburn, Denies diarrhea, Denies nausea, Denies odynophagia and Denies vomiting Denies difficulty urinating, Denies dysuria and Denies urinary frequency Musc Reports back pain (over the lower back - chronic), Denies arthralgias and Denies neck pain Skin/Breast Denies rash Neuro Denies dizziness, Denies headache(s) and Denies paresthesias Endo Denies fatigue and Denies palpitations Physical exam (Primary Care) Vital Signs: Last Vital Signs Pulse 65 09/11/24 15:04 BP 110/78 09/11/24 15:04 Pulse Ox 96 09/11/24 15:04 Oxygen Delivery Method Room Air 09/11/24 15:04 BMI result Body Mass Index 29.0 Tobacco/Smoking Status: Tobacco use Status Tobacco use date assessed 09/11/24 09/11/24 15:09 Patient Tobacco Use Status Never used Tobacco 09/11/24 15:09 e-Cigarette/Vaping Use Never Used 09/11/24 15:09 PHQ-9: PHQ-9 Score PHQ-9: Total score 3 09/11/24 15:09 Depression Screening Interpretation: Negative Thrive Assessment: Date of Thrive Assessment Date Thrive assessed 09/11/24 09/11/24 15:09 Currently or been in a relationship where the following occur: I choose not to answer Const General: no acute distress and alert HENMT Ears: TM's normal bilaterally and EAC's normal Throat: Yes posterior oropharynx normal and Yes tonsils normal (no TP congestion) Neck Neck: Yes supple and No lymphadenopathy Thyroid: Thyroid normal Resp Auscultation: clear to auscultation bilaterally, no rales and no wheezes Cardio Rate: regular rate Rhythm: regular rhythm Heart sounds: no murmurs GI Palpation (GI): Soft to palpation and nontender Auscultation: normal bowel sounds General: Yes no CVA tenderness Back/Spine/Pelvis Back: no CVA tenderness Thoracic/Lumbar Spine: lumbar spinal tenderness Skin Rashes: no rashes Extrem General: Yes no clubbing, cyanosis or edema Results Reviewed Results Reviewed: Laboratory Tests 08/24/24 08/24/24 09/03/24 12:07 12:50 10:17 WBC 10.7 Hgb 16.2 Hct 47.5 Plt Count 223 Sodium 141 Potassium 4.0 Creatinine 1.40 Estimated GFR 54 Fasting Glucose 104 H Hemoglobin A1c % 5.5 Calcium 9.7 AST 24 ALT 40 Triglycerides 240 H Cholesterol 168 LDL Cholesterol, Calc 78 HDL Cholesterol 42 TSH 1.97 Ur Specific Calhoun 1.025 Urine Protein Negative Urine Glucose (UA) Negative Urine Blood Negative Urine Nitrite Negative Ur Leukocyte Esterase Negative Coding Level of Care Code Est Pt Level 4 (09294) Complex EM visit Add On G2211 Diagnoses Pure hypercholesterolemia E78.00 Benign essential hypertension I10 Stage 3a chronic kidney disease N18.31 Chronic kidney disease stage 3 subtype: stage 3a (GFR 45-59) Impaired fasting glucose R73.01 Degeneration of intervertebral disc of lumbar region with discogenic back pain M51.360 Disc-related pain type: discogenic back pain only Migraine without status migrainosus, not intractable, unspecified migraine type G43.909 Migraine type: unspecified Status migrainosus presence: without status migrainosus Intractability: not intractable Bilateral carpal tunnel syndrome G56.03 Thyroid nodule E04.1 Benign prostatic hyperplasia with urinary hesitancy N40.1; R39.11 Insomnia, unspecified type G47.00 Insomnia type: unspecified Anxiety F41.9 Depression, unspecified depression type F32.A Depression Type: unspecified Overweight (BMI 25.0-29.9) E66.3 Additional Codes PHQ-9 - 36412 - PHQ-9 Billing: Yes ([id number]) Assessment & Plan Assessment & Plan (1) Pure hypercholesterolemia: Code(s): E78.00 - Pure hypercholesterolemia, unspecified Category: Medical Plan: Results of her labs done about 2 to 3 weeks ago reviewed and discussed with patient - he is advised that his cholesterol levels are mostly well-controlled except for his serum triglycerides, which are elevated at 240 mg/dl Reinforced low cholesterol diet Continue Atorvastatin 10 mg QD for now Will recheck his labs and fasting lipids in 4 months for follow-up (2) Benign essential hypertension: Code(s): I10 - Essential (primary) hypertension Category: Medical Plan: Reinforced low sodium diet - goal is systolic BP of 120 mm or less Continue Amlodipine 2.5 mg QD He was on Lisinopril 10 mg QD but this was discontinued by nephrology recently due to his recent declining renal function (3) Chronic kidney disease (CKD), stage III (moderate): Code(s): N18.30 - Chronic kidney disease, stage 3 unspecified Category: Medical Qualifiers: Chronic kidney disease stage 3 subtype: stage 3a (GFR 45-59) Qualified Code(s): N18.31 - Chronic kidney disease, stage 3a Plan: His GFR and renal function appears to have improved on his recent labs done a few weeks ago Renal US done in December 2021 came out normal, with small right renal cysts - no follow up imaging studies required Patient is again encouraged to continue to increase his oral fluid intake consistently and to also cut back on his intake of Red Bull, which he states he drinks a lot of Will continue to monitor his renal function closely Follow up with nephrology as scheduled (4) Impaired fasting glucose: Code(s): R73.01 - Impaired fasting glucose Category: Medical Plan: His FBS was at 104 mg/dl on his labs done a few weeks ago HgbA1c is again normal at 5.5%; was also at 5.5% and 5.4% when previously checked Reinforced low calorie/low carb diet;exercise as tolerated Have advised patient again that Red Bull contains very high amounts of sugar and caffeine and cutting back on these should also help with his blood sugar (5) Lumbar degenerative disc disease: Code(s): M51.36 - Other intervertebral disc degeneration, lumbar region Category: Medical Qualifiers: Disc-related pain type: discogenic back pain only Qualified Code(s): M51.360 - Other intervertebral disc degeneration, lumbar region with discogenic back pain only Plan: S/P anterior lumbar interbody fusion of L5-S1 by Dr. Philip on 11/24/2020 Reinforced activity and weight lifting restrictions Continue Oxycodone 10 mg every 6 hours as needed for increased pain Patient is reminded/cautioned again to avoid all NSAIDs completely as they can adversely affect his renal function (6) Migraine: Code(s): G43.909 - Migraine, unspecified, not intractable, without status migrainosus Category: Medical Qualifiers: Migraine type: unspecified Status migrainosus presence: without status migrainosus Intractability: not intractable Qualified Code(s): G43.909 - Migraine, unspecified, not intractable, without status migrainosus Plan: Stable/controlled Continue Fioricet 50-325-40 mg 1 tablet 3 to 4 times a day as needed for headaches Patient used to take Topiramate 25 mg Q HS for migraine headache prophylaxis but appears to have stopped taking this a few years ago - states that his headaches have not really gotten any worse since he quit taking his Topiramate (7) Bilateral carpal tunnel syndrome: Code(s): G56.03 - Carpal tunnel syndrome, bilateral upper limbs Category: Medical Plan: S/P right wrist tendon repair by Dr. Moyer on 09/08/2020 for rupture of ligament of the right wrist and more recently, S/P proximal row carpectomy on 08/23/22 Follow up with orthopedics as scheduled or as needed (8) Thyroid nodule: Code(s): E04.1 - Nontoxic single thyroid nodule Category: Medical Plan: Stable - repeat thyroid US done in March 2021 came out normal At the time, we have decided to at least consider getting a follow up US in 3 years (03/2024) A repeat thyroid US was done back in May 2024, which came out normal - Normal thyroid. No nodules He was last seen by endocrinology (Dr. Antunez) in March 2018 and was recommended to repeat his TFTs every few months for follow up He was also advised that given the long-term stability of his thyroid nodule, he can just see his PCP for this and no longer needs to follow up with endocrinology on a regular basis unless something changes or something new occurs Patient is again reassured that his TFTs were normal on his recent labs (9) Benign prostatic hyperplasia with urinary hesitancy: Code(s): N40.1 - Benign prostatic hyperplasia with lower urinary tract symptoms; R39.11 - Hesitancy of micturition Category: Medical Plan: His PSA done a few months ago again came out normal Follow up with urology as scheduled (10) Insomnia: Code(s): G47.00 - Insomnia, unspecified Category: Medical Qualifiers: Insomnia type: unspecified Qualified Code(s): G47.00 - Insomnia, unspecified Plan: Sleep hygiene reinforced Continue Zolpidem 10 mg Q HS PRN (11) Anxiety: Code(s): F41.9 - Anxiety disorder, unspecified Category: Medical Plan: Continue Clonazepam 0.5 mg BID PRN (12) Depression: Code(s): F32.9 - Major depressive disorder, single episode, unspecified Category: Medical Qualifiers: Depression Type: unspecified Qualified Code(s): F32.A - Depression, unspecified Plan: Continue Quetiapine 200 mg Q HS, Sertraline 100 mg QD and Bupropion ER 300 mg QD Follow up with psychiatry as scheduled (13) Overweight (BMI 25.0-29.9): Code(s): E66.3 - Overweight Category: Medical Plan: Reinforced diet/exercise as tolerated/lose weight Plan Follow up in 4 months Orders: Orders Lipid Panel 4 Months E78.00 - Pure hypercholesterolemia, unspecified TSH reflex Free T4 4 Months E78.00 - Pure hypercholesterolemia, unspecified Complete Blood Count Auto Diff 4 Months D64.9 - Anemia, unspecified Comprehensive Meno. Panel Fast 4 Months E78.00 - Pure hypercholesterolemia, unspecified Hemoglobin A1c 4 Months R73.01 - Impaired fasting glucose UA CC w/rflx Micro + Cult 4 Months R30.0 - Dysuria Vitamin D 25-OH Total 4 Months E55.9 - Vitamin D deficiency, unspecified
--- OUTSIDE RECORDS SUMMARY | 2024-09-11 15:05 | XMS_ITS | Clinical Summary ---
Author Organization [facility], Address [address] [place] [address] Phone Care Team Providers Care Director Industrial Name Role Phone Unavailable Primary Care Provider [...] 2024 Influenza Vaccine (Season Ended) 2024 Insurance [facility]
== END 2024-09-11 15:45 | disposition home or self-care (01) ==
LOC: HO.HMCH 15:03
PROVIDERS: PCP Internal Medicine; Visit Provider Internal Medicine
DX: E78.00 Pure hypercholesterolemia, unspecified (principal); I10 Essential (primary) hypertension; N18.31 Chronic kidney disease, stage 3a; R73.01 Impaired fasting glucose; M51.360 Other intervertebral disc degeneration, lumbar region with discogenic back pain only; G43.909 Migraine, unspecified, not intractable, without status migrainosus; G56.03 Carpal tunnel syndrome, bilateral upper limbs; E04.1 Nontoxic single thyroid nodule; N40.1 Benign prostatic hyperplasia with lower urinary tract symptoms; R39.11 Hesitancy of micturition; G47.00 Insomnia, unspecified; F41.9 Anxiety disorder, unspecified; F32.A Depression, unspecified; E66.3 Overweight

== ENCOUNTER → 2024-09-11 15:02 | Outpatient (BNVA) | payer OTHER, SELFPAY | PROVIDERS: PCP Internal Medicine; Visit Provider Internal Medicine | DX: I12.9 Hypertensive chronic kidney disease with stage 1 through stage 4 chronic kidney disease, or unspecified chronic kidney disease (principal); N18.31 Chronic kidney disease, stage 3a; E78.5 Hyperlipidemia, unspecified; E78.00 Pure hypercholesterolemia, unspecified; R73.01 Impaired fasting glucose; M51.360 Other intervertebral disc degeneration, lumbar region with discogenic back pain only; G43.909 Migraine, unspecified, not intractable, without status migrainosus; G56.03 Carpal tunnel syndrome, bilateral upper limbs; E04.1 Nontoxic single thyroid nodule; N40.1 Benign prostatic hyperplasia with lower urinary tract symptoms; R39.11 Hesitancy of micturition; G47.00 Insomnia, unspecified; F41.9 Anxiety disorder, unspecified; F32.A Depression, unspecified; E66.3 Overweight; D64.9 Anemia, unspecified; R30.0 Dysuria; E55.9 Vitamin D deficiency, unspecified; Z68.29 Body mass index [BMI] 29.0-29.9, adult | CPT/HCPCS: 96127; 99212 ==

== ENCOUNTER 2024-09-25 11:28 | Outpatient (AMB) | payer OTHER, SELFPAY ==
--- NOTE | 2024-09-25 11:45 | HO.NEPHOV ---
Vital Signs 09/25/24 11:46 Height 5 ft 9 in Weight 198 lb BMI 29.2 BP 120/72 Blood Pressure Location Rt brachial Position Sitting Pulse 80 Pulse Source Pulse Oximeter Pulse Oximetry (%) 98 Oxygen Delivery Method Room Air Intake Visit Reasons: 1 MO FU/ Conf [employer]ator [employer] Required: Yes [employer] Name: [id number] Accompanied by: Self / Same As Patient Allergies gabapentin Allergy (Unknown, Verified 09/25/24 11:49) trouble swallowing, swelling Medication List - Last Reconciled 09/25/24 by Jose Lynch MD amlodipine 2.5 mg PO DAILY atorvastatin 10 mg PO DAILY bupropion HCl XL 300 mg PO DAILY rltcfbhqts-lqzlncxvaqcnq-xcju 50-325-40 mg 1 cap PO ONCE PRN cholecalciferol (vitamin D3) (Vitamin D3) 25 mcg PO DAILY clonazepam 0.25 mg PO BID cyclobenzaprine 10 mg PO TID PRN hydrocortisone 1% (Anti-Itch (hydrocortisone)) 1 appl topical TID PRN naloxone 4 mg/actuation (Narcan) 4 mg intranasal Q2M PRN oxycodone 10 mg PO Q6H PRN 28 days quetiapine 200 mg PO BEDTIME sertraline 100 mg PO DAILY zolpidem 10 mg PO BEDTIME PRN HPI Comments Details: 49-year-old man with a history of longstanding hypertension nephrolithiasis here for follow-up. He has mild CKD. Serum creatinine is between 1.3 and 1.4 mg/dL. Today has no new complaints. Lisinopril was discontinued last visit and creatinine is marginally better No new issues Drinks 2 -3 Redbull a day 08/28/24 49-year-old male presenting with decreased renal function. Over the past year, his kidney function has progressively declined, with GFR measurements of 56%, 48%, and 42%, respectively, at different intervals. His urinary symptoms are limited to nocturia, with no reported dysuria, nausea, or vomiting. He previously consumed multiple caffeinated beverages heavily but has reduced this habit recently. He also admits to taking creatinine supplements, which may be affecting his renal function tests. The patient's BUN remains stable, indicating the creatinine elevation is likely linked to his creatine supplementation. A 24-hour urine collection is planned to assess creatinine clearance more accurately. 09/25/24 49-year-old male presenting with a routine follow-up for hypertension management. His blood pressure is currently well-controlled with his prescribed antihypertensive medication, namely amlodipine at a dose of 2.5 mg per day. He reports no significant complications such as dyspnea, edema, or urinary retention, aside from occasional mild urinary symptoms. A recent 24-hour urine study indicates stable renal function, which shows improvement from previous measurements. The patient is advised to minimize sugar intake to aid in maintaining a healthy weight and support overall health outcomes. He adheres to his treatment plan, which includes adequate hydration and reduced salt consumption. He stopped Creatine supplements [facility] Medical History Status post proximal row carpectomy of wrist (~08/23/22) Chronic kidney disease (CKD), stage III (moderate) Rupture of ligament of wrist Renal insufficiency Vitamin D deficiency Overweight (BMI 25.0-29.9) Depression Anxiety Insomnia Benign prostatic hyperplasia Bilateral carpal tunnel syndrome Thyroid nodule Migraine Impaired fasting glucose Pure hypercholesterolemia Benign essential hypertension Lumbar degenerative disc disease Surgical History History of lumbosacral spine surgery (~11/24/20) History of surgery on right wrist (~02/07/20) S/P lumbar and lumbosacral fusion by anterior technique (~11/24/20) History of surgery Deficient knowledge of spinal cord stimulator S/P aneurysm repair History of knee replacement procedure of right knee History of hemorrhoidectomy History of bladder surgery Family History Father Medical history unknown Mother Diabetes Hypertension Social History Housing: House Alcohol intake: former Patient Tobacco Use Status: Never used Tobacco e-Cigarette/Vaping Use: Never Used Second Hand Smoke Exposure: Yes service: No Current occupational status: unemployed Cognitive needs: No Hearing needs: No Vision needs: No Physical Exam Vital Signs: Last Vital Signs Pulse 80 09/25/24 11:46 BP 120/72 09/25/24 11:46 Pulse Ox 98 09/25/24 11:46 Oxygen Delivery Method Room Air 09/25/24 11:46 BMI result Body Mass Index 29.2 Comfortable Neck supple no JVD. Lungs entry equal no rales. Heart S1-S2 heard no gallop or rub. Abdomen soft nontender. Neuro alert awake oriented. No asterixis. Extremities no edema. Results Reviewed Nephrology Results: Hgb 16.2 g/dl (14.0-18.0) 08/24/24 WBC 10.7 X10*3/uL (4.8-10.8) 08/24/24 Plt Count 223 X10*3/uL (160-400) 08/24/24 Sodium 141 mmol/L (135-145) 09/03/24 Potassium 4.0 mmol/L (3.3-5.1) 09/03/24 Chloride 103 mmol/L (96-108) 09/03/24 Carbon Dioxide 30 mmol/L (22-29) H 09/03/24 BUN 14 mg/dL (9-16) 09/03/24 Creatinine 1.40 mg/dL (0.5-1.4) 09/03/24 Calcium 9.7 mg/dL (8.4-10.2) 09/03/24 Urine Protein Negative mg/dL (Neg-Trace) 08/24/24 Assessment & Plan Assessment & Plan (1) Benign essential hypertension: Code(s): I10 - Essential (primary) hypertension Category: Medical (2) Chronic kidney disease (CKD), stage III (moderate): Code(s): N18.30 - Chronic kidney disease, stage 3 unspecified Category: Medical Qualifiers: Chronic kidney disease stage 3 subtype: stage 3a (GFR 45-59) Qualified Code(s): N18.31 - Chronic kidney disease, stage 3a (3) Nephrolithiasis: Code(s): N20.0 - Calculus of kidney Category: Medical Plan 49-year-old man is status CKD in setting of longstanding hypertension and there nephrolithiasis. Bp is well controlled For now I will hold off on using any RICHY inhibitors. Encouraged him to increase p.o. fluid intake. No evidence of any obstruction. Urine sediments with bland and no significant proteinuria in the past. Shall continue monitor for the same. Limit Redbull !! 08/28/24 I recommend discontinuing the creatine supplement due to its probable effect on creatinine levels, considering the stable BUN. A 24-hour urine test for creatinine clearance is required to evaluate renal function accurately without supplement interference. Stopping creatine should help in assessing true renal health, and reducing caffeine intake might mitigate nocturia symptoms. Follow-up is planned in four weeks after completing the urine test to reassess and adjust management as necessary. If renal fx remains suppressed,would obtain further work up including USG 09/25/24 After stopping Creatine supplements, serum creatinine has returned to 1.4 mg/dL . Thats his baseline 24 hr urine showed a Cr cl of 95.5 ml/mt ! Encouraged to stay on low salt diet. No changes in meds No need for further work up Orders: Orders Basic Metabolic Panel 6 Months I10 - Essential (primary) hypertension Coding Level of Care Code Est Pt Level 4 (42720) Diagnoses Benign essential hypertension I10 Stage 3a chronic kidney disease N18.31 Chronic kidney disease stage 3 subtype: stage 3a (GFR 45-59) Nephrolithiasis N20.0
[2024-09-25 11:46] VITALS: BP 120/72; PULSE 80; O2SAT 98; BMI 29.2
--- OUTSIDE RECORDS SUMMARY | 2024-09-25 13:48 | XMS_ITS | Clinical Summary ---
Author Organization [facility], Address [address] [place] [address] Phone Care Team Providers Care Air Marshal Name Role Phone Unavailable Primary Care Provider [...] 2024 Influenza Vaccine (Season Ended) 2024 Insurance [facility]
== END 2024-09-25 11:59 | disposition home or self-care (01) ==
LOC: HO.HKA 11:29
PROVIDERS: PCP Internal Medicine; Visit Provider Internal Medicine Hypertension Specialist
DX: I10 Essential (primary) hypertension (principal); N18.31 Chronic kidney disease, stage 3a; N20.0 Calculus of kidney
CPT/HCPCS: 99214

== ENCOUNTER → 2024-09-25 11:28 | Outpatient (BNVA) | payer OTHER, SELFPAY | PROVIDERS: PCP Internal Medicine; Visit Provider Internal Medicine Hypertension Specialist | DX: I10 Essential (primary) hypertension (principal); N18.31 Chronic kidney disease, stage 3a; N20.0 Calculus of kidney | CPT/HCPCS: 99212 ==

== ENCOUNTER 2024-10-09 13:29 | Outpatient (AMB) | payer OTHER, SELFPAY ==
--- NOTE | 2024-10-09 13:37 | A.OFFVIS_ITS ---
Vital Signs 3 10/09/24 13:46 Height 5 ft 9 in Weight 198 lb BMI 29.2 BP 126/72 Blood Pressure Location Rt brachial Position Sitting Pulse 74 Pulse Source Pulse Oximeter Pulse Oximetry (%) 97 Oxygen Delivery Method Room Air Intake Visit Reasons: Colonoscopy Screening Intake Note: New pt for initial colo screening. S/P sphincterotomy via Dr. Crocker 2008. CC; Pt denies any GI sx or concerns at this time. FMHx on maternal side (uncle). Advertising Layout Worker Required: Yes Advertising Layout Worker Services: Advertising Layout Worker Present Advertising Layout Worker Name: Yamila [id number] + [facility] Information Interpreted: clinical only Accompanied by: Self / Same As Patient Allergies gabapentin Allergy (Unknown, Verified 10/09/24 13:43) trouble swallowing, swelling HPI HPI Colonoscopy Screening: Details: 49-year-old male here for preprocedural meeting to discuss a screening colonoscopy. He is referred by Desmond Montelongo. PMX Hypertension High cholesterol Chronic kidney disease stage III BPH Bilateral carpal tunnel syndrome Migraines Depression with anxiety/insomnia Lumbar degenerative disc disease Nephrolithiasis * SURGICAL HISTORY Corpectomy of wrist Lumbar diskectomy with fusion Spinal cord stimulator implant - removed Cerebra aneurism repair - ??? Right total knee replacement ? Hemorrhoidectomy Bladder suspension surgery - ? * ALLERGIES Gabapentin * [employer] LABS: Laboratory Tests 08/24/24 09/03/24 12:07 10:17 WBC 10.7 Hgb 16.2 Hct 47.5 Plt Count 223 Estimated GFR 42 54 Hemoglobin A1c % 5.5 Total Bilirubin 0.5 AST 24 ALT 40 Alkaline Phosphatase 94 TSH 1.97 TODAY'S VISIT [place] #Karley Live This is his first colonoscopy. He has a hx of rectal fissures wtih occasional bleeding and a hx of CIC that is diet controlled now and not upper GI problems He denies any cardiac or respiratory problems. There is no prior problems with anesthesia and sedation. No ID problems. He had a maternal uncle who of CRC but no known 1st degree relative with CrC or polyps. Doorknob c/o scrotal itch - printed jock itch infor in UTD and gave nystatin powder. PFSH Medical History Status post proximal row carpectomy of wrist (~08/23/22) Chronic kidney disease (CKD), stage III (moderate) Rupture of ligament of wrist Renal insufficiency Vitamin D deficiency Overweight (BMI 25.0-29.9) Depression Anxiety Insomnia Benign prostatic hyperplasia Bilateral carpal tunnel syndrome Thyroid nodule Migraine Impaired fasting glucose Pure hypercholesterolemia Benign essential hypertension Lumbar degenerative disc disease Surgical History History of lumbosacral spine surgery (~11/24/20) History of surgery on right wrist (~02/07/20) S/P lumbar and lumbosacral fusion by anterior technique (~11/24/20) History of surgery Deficient knowledge of spinal cord stimulator S/P aneurysm repair History of knee replacement procedure of right knee History of hemorrhoidectomy History of bladder surgery Family History Father Medical history unknown Mother Diabetes Hypertension Maternal Uncle Colon cancer Social History Housing: House Alcohol intake: former Patient Tobacco Use Status: Never used Tobacco e-Cigarette/Vaping Use: Never Used Second Hand Smoke Exposure: Yes service: No Current occupational status: unemployed Cognitive needs: No Hearing needs: No Vision needs: No Review of Systems Const Denies fatigue, Denies fever(s), Denies night sweats, Denies poor appetite and Denies weight loss ENT Reports Normal hearing present, Denies dysphagia, Denies odynophagia, Denies throat swelling and Denies tongue swelling Card Reports no additional complaints Resp Reports no additional complaints GI Details: Denies abdominal pain, Denies melena, Denies bloating, Reports hematochezia, Denies constipation, Denies GI cramping, Denies dysphagia, Denies excessive flatus, Denies early satiety, Denies heartburn, Denies diarrhea, Denies nausea, Denies odynophagia, Denies vomiting and Denies hematemesis Reports difficulty urinating Musc Reports back pain Skin/Breast Reports pruritus, Denies lesions, Reports erythema, Reports rash and Denies jaundice Neuro Reports Normal hearing present and Denies Abnormal speech present Endo Denies fatigue Aller/Immun Denies throat swelling and Denies tongue swelling Physical Exam Vital Signs: Last Vital Signs Pulse 74 10/09/24 13:46 BP 126/72 10/09/24 13:46 Pulse Ox 97 10/09/24 13:46 Oxygen Delivery Method Room Air 10/09/24 13:46 BMI result Body Mass Index 29.2 Const General: cooperative, no acute distress, well developed and well groomed Nutritional Appearance: well nourished and obese centrally obese Orientation/consciousness: oriented to person, oriented to place and oriented to time Limitations: language barrier HEENT Head: Yes normocephalic and Yes atraumatic Eyes General: appearance normal, both eyes and all related structures Pupils: Equal, round and reactive pupils present Neck Neck: Yes normal visual inspection and Yes no lymphadenopathy Thyroid: Thyroid normal Resp Effort & Inspection: normal respiratory effort and able to speak in complete sentences Auscultation: clear to auscultation bilaterally Cardio Rate: regular rate Rhythm: regular rhythm Heart sounds: Normal, physiologic split S2 sound present Peripheral pulses: radial pulses present and posterior tibial pulses present GI Inspection: No distended and No Abdominal panniculus present Palpation (GI): Soft to palpation, nontender, no guarding, not rigid and No hepatosplenomegaly present Percussion: Yes normal to percussion Auscultation: normal bowel sounds Rectal Exam - Male: Yes deferred Abdomen image: 2 1. scar from lumbar surgery Skin General skin exam: no rashes or lesions noted, turgor normal, skin not dry, no jaundice, No spider nevi and no striae Rashes: no rashes Nails: normal Neuro General: oriented to person, oriented to place and oriented to time Cranial nerves: Yes Equal, round and reactive pupils present and Yes Normal hearing present Speech: No Abnormal speech present Extrem General: Yes normal to inspection, No clubbing, No cyanosis and No edema Psych Appearance: grossly normal and well kempt Mental Status: mental status grossly normal Speech and movement: Normal speech and movement present Affect: normal affect Attitude: cooperative Thought process: Normal thought process present and not confabulating Thought content: Normal thought content present Insight: Fair insight present (Psych) Judgement: Fair judgement present (Psych) Assessment & Plan Assessment & Plan (1) Pre-op examination: Code(s): Z01.818 - Encounter for other preprocedural examination Category: Medical (2) Chronic kidney disease (CKD), stage III (moderate): Code(s): N18.30 - Chronic kidney disease, stage 3 unspecified Category: Medical Qualifiers: Chronic kidney disease stage 3 subtype: stage 3a (GFR 45-59) Qualified Code(s): N18.31 - Chronic kidney disease, stage 3a (3) Judy infection: Comment: testicular area Code(s): B37.9 - Candidiasis, unspecified Category: Medical (4) Jock itch: Code(s): B35.6 - Tinea cruris Category: Medical Plan [place] #Karley Mendes This is his first colonoscopy. He has a hx of rectal fissures wtih occasional bleeding and a hx of CIC that is diet controlled now and not upper GI problems He denies any cardiac or respiratory problems. There is no prior problems with anesthesia and sedation. No ID problems. He had a maternal uncle who of CRC but no known 1st degree relative with CrC or polyps. Doorknob c/o scrotal itch - printed jock itch infor in UTD and gave nystatin powder. Orders: Orders 2 Colonoscopy - GI Use Only Today Z01.818 - Encounter for other preprocedural examination Medications: New 2 peg 3350-electrolytes 236-22.74-6.74 -5.86 gram (Golytely) until fecal effluent is clear; do not exceed a total volume of 2,000 mL 240 mL PO Q10M 4,000 mL 0RF 1 day Z12.11 - Encounter for screening for malignant neoplasm of colon nystatin 1 appl topical TID 30 grams 3RF B37.9 - Candidiasis, unspecified bisacodyl (Dulcolax (bisacodyl)) 10 mg (2 x 5 mg) PO BEDTIME 4 tabs 0RF 2 days Coding Level of Care Code New Pt Level 3 (33382) Diagnoses Pre-op examination Z01.81 Stage 3a chronic kidney disease N18.31 Chronic kidney disease stage 3 subtype: stage 3a (GFR 45-59) Judy infection B37.9 Jock itch B35.6
[2024-10-09 13:46] VITALS: BP 126/72; PULSE 74; O2SAT 97; BMI 29.2
--- OUTSIDE RECORDS SUMMARY | 2024-10-09 15:40 | XMS_ITS | Clinical Summary ---
Author Organization [facility], Address [address] [place] [address] Phone Care Team Providers Care Manager Media Name Role Phone Unavailable Primary Care Provider [...] 87 06/02/2023 2:18 PM EST Temperature 36.1 C (97 F) 10/31/2020 10:49 AM EDT Respiratory Rate - [...] 2024 Influenza Vaccine (Season Ended) 2024 Insurance [facility]
== END 2024-10-09 14:31 | disposition home or self-care (01) ==
LOC: HO.HGI 13:30
PROVIDERS: PCP Internal Medicine; Visit Provider Nurse Practitioner
DX: Z01.818 Encounter for other preprocedural examination (principal); Z12.11 Encounter for screening for malignant neoplasm of colon; N18.31 Chronic kidney disease, stage 3a; B37.9 Candidiasis, unspecified; B35.6 Tinea cruris
CPT/HCPCS: 99203

== ENCOUNTER → 2024-10-09 13:29 | Outpatient (BNVA) | payer OTHER, SELFPAY | PROVIDERS: PCP Internal Medicine; Visit Provider Nurse Practitioner | DX: Z01.818 Encounter for other preprocedural examination (principal); N18.31 Chronic kidney disease, stage 3a; B37.9 Candidiasis, unspecified; B35.6 Tinea cruris | CPT/HCPCS: 99202 ==

== ENCOUNTER 2025-01-08 13:33 | Outpatient (REF) | payer OTHER, SELFPAY ==
[2025-01-08 14:04] LABS: MANUAL DIFF FLAG NO
[2025-01-08 14:19] LABS: Hematocrit 41.9 % (42.0-52.0); Hemoglobin 14.1 g/dl (14.0-18.0); Imm Gran Abs Auto 0.04 X10*3/uL (0.00-0.03); Imm Gran Pct Auto 0.5 % (0.0-0.4); Lymphocytes Absolute Auto 1.7 X10*3/uL (1.2-4.9); Mean Corpuscular HGB Conc 33.7 g/dl (31.0-36.0); Mean Corpuscular Hemoglobin 30.3 pg (27.0-33.0); Mean Corpuscular Volume 89.9 fL (80.0-98.0); NRBC Abs Auto 0.000 X10*3/uL (0.0-0.012); NRBC Pct Auto 0.0 /100WBC (0.0-0.2); Platelet Count 169 X10*3/uL (160-400); Red Blood Count 4.66 X10*6/uL (4.60-5.80); White Blood Count 8.7 X10*3/uL (4.8-10.8)
[2025-01-08 14:32] LABS: Appearance Urine Clear; Glucose Urine UA Negative (Negative); PH 5.5 (5.0-9.0); Specific Gravity - Urine 1.020 (1.005-1.025); UMIC TRIGGER UACC YES
[2025-01-08 14:41] LABS: Hemoglobin A1C 145.0835 umol/L; Total Hemoglobin (HGBA1C) 3735.5222 umol/L
[2025-01-08 14:49] LABS: Alanine Aminotransferase 59 U/L (0-40); Albumin Level 4.5 g/dL (3.5-5.0); Alkaline Phosphatase 76 U/L (39-117); Anion Gap 9 (12-20); Aspartate Amino Transferase 49 U/L (5-37); Blood Urea Nitrogen 19 mg/dL (9-16); Calcium 9.4 mg/dL (8.4-10.2); Carbon Dioxide 30 mmol/L (22-29); Chloride 108 mmol/L (96-108); Cholesterol 157 mg/dL (<200); Estimated Glomerular Filt Rate 48; HDL Cholesterol 46 mg/dL (>40); Potassium 4.8 mmol/L (3.3-5.1); Sodium 142 mmol/L (135-145); Total Protein 6.7 g/dL (6.5-8.0); Triglycerides 73 mg/dL (<150)
--- OUTSIDE RECORDS SUMMARY | 2025-01-08 16:40 | XMS_ITS | Clinical Summary ---
Author Organization [facility], Address [address] [place] [address] Phone Care Team Providers Care Lead Quality Control Technician Name Role Phone Unavailable Primary Care Provider [...] Colorectal Cancer Screening: Sigmoidoscopy 2024 Influenza Vaccine (#1) 2024 Insurance [facility]
== END 2025-01-08 13:34 | disposition home or self-care (01) ==
LOC: HO.LAB 13:33
PROVIDERS: PCP Internal Medicine; Visit Provider Internal Medicine
DX: E78.00 Pure hypercholesterolemia, unspecified (principal); E55.9 Vitamin D deficiency, unspecified; D64.9 Anemia, unspecified; R73.01 Impaired fasting glucose
CPT/HCPCS: 36415; 80053; 80061; 81001; 82306; 83036; 84443; 85025

== ENCOUNTER 2025-01-15 13:42 | Outpatient (AMB) | payer OTHER, SELFPAY ==
--- NOTE | 2025-01-15 13:45 | A.OFFPC_ITS ---
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 Required: No Accompanied by: Self / Same As Patient Allergies gabapentin Allergy (Unknown, Verified 01/15/25 14:28) trouble swallowing, swelling Medication List - Last Reconciled 01/15/25 by Desmond Montelongo MD amlodipine 2.5 mg PO DAILY atorvastatin 10 mg PO DAILY bisacodyl (Dulcolax (bisacodyl)) 10 mg (2 x 5 mg) PO BEDTIME 2 days bupropion HCl XL mg PO wcantvwyer-pjudxvcuuxgwa-qljm 50-325-40 mg 1 cap PO ONCE PRN cholecalciferol (vitamin D3) (Vitamin D3) 25 mcg PO DAILY clonazepam 0.25 mg PO BID cyclobenzaprine 10 mg PO TID PRN hydrocortisone 1% (Anti-Itch (hydrocortisone)) 1 appl topical TID PRN naloxone 4 mg/actuation (Narcan) 4 mg intranasal Q2M PRN nystatin 1 appl topical TID oxycodone 10 mg PO Q6H PRN 28 days peg 3350-electrolytes 236-22.74-6.74 -5.86 gram (Golytely) 240 mL PO Q10M 1 day quetiapine 200 mg PO BEDTIME sertraline 100 mg PO DAILY zolpidem 10 mg PO BEDTIME PRN Tobacco use date assessed: 01/15/25 Dental Screening Dental Screen Date: 01/15/25 Did you have a dental visit in the last 12 months?: Yes Did you have a dental problem in the last 6 months where you did not have access to dental care?: No Was dental information given to patient?: Patient has dentist HPI [facility] HPI Details Patient comes in today for his follow up visit States that he feels okay He denies any headaches or dizziness Denies any chest pains, no SOB No nausea/vomiting, no abdominal pain No change in bowel habits noted States that his chronic low back pain remains adequately controlled on his current Rx He had his follow up labs done last week - to discuss his results He was seen by GI back in September 2024 for his precolonoscopy appointment and was advised that he will be contacted when they are scheduling him for his colonoscopy but states that he has not yet heard back from them so he is still awaiting scheduling [facility] Medical History Status post proximal row carpectomy of wrist (~08/23/22) Chronic kidney disease (CKD), stage III (moderate) Rupture of ligament of wrist Renal insufficiency Vitamin D deficiency Overweight (BMI 25.0-29.9) Depression Anxiety Insomnia Benign prostatic hyperplasia Bilateral carpal tunnel syndrome Thyroid nodule Migraine Impaired fasting glucose Pure hypercholesterolemia Benign essential hypertension Lumbar degenerative disc disease Surgical History History of lumbosacral spine surgery (~11/24/20) History of surgery on right wrist (~02/07/20) S/P lumbar and lumbosacral fusion by anterior technique (~11/24/20) History of surgery Deficient knowledge of spinal cord stimulator S/P aneurysm repair History of knee replacement procedure of right knee History of hemorrhoidectomy History of bladder surgery Family History Father Medical history unknown Mother Diabetes Hypertension Maternal Uncle Colon cancer Social History Housing: House Alcohol intake: former Patient Tobacco Use Status: Never used Tobacco e-Cigarette/Vaping Use: Never Used Second Hand Smoke Exposure: Yes service: No Current occupational status: unemployed Cognitive needs: No Hearing needs: No Vision needs: No Questionnaire Thrive Questionnaire Date Thrive assessed: 05/15/24 I am a: Patient What is your living situation today?: I choose not to answer this question Within the past 12 months, did the food you bought not last and you didn't have the money to get more?: I choose not to answer this question Within the past 12 months, did you worry whether your food would run out before you got money to buy more?: I choose not to answer this question Do you have trouble paying for medicines?: No Do you have trouble getting transportation to medical appointments?: No Do you have trouble paying your heating and electricity bill?: No Do you have trouble taking care of your child, family member or friend?: I choose not to answer this question Do you have trouble with day-to-day activities such as bathing, preparing meals, shopping, managing finances, etc.?: No Are you currently unemployed and looking for a job?: I choose not to answer this question Are you interested in more education?: No Please select the resources that you would like help with: None Currently or been in a relationship where the following occur: I choose not to answer THRIVE Score: 0 AUDIT C Alcohol Use Questionnaire (AUDIT-C) 1. How often do you have a drink containing alcohol?: Never 3. How often do you have six or more drinks on one occasion?: Never Total Score: 0 Score Reviewed/Action Taken: Yes KARINA-7 AMB Questionnaire KARINA-7 Date KARINA - 7 assessed: 09/11/24 Source: Developed by Drs. Job Pleitez, Pat Murry, Simon Mejía and colleagues, with an educational delicia from [employer]. Review of Systems Const Denies chills, Denies fatigue, Denies fever(s) and Denies headache(s) ENT Denies dysphagia, Denies dizziness, Denies otalgia, Denies headache(s), Denies neck pain and Denies odynophagia Card Denies chest pain, Denies irregular heart rhythm, Denies palpitations and Denies dyspnea Resp Denies chest congestion, Denies cough and Denies dyspnea GI Denies abdominal pain, Denies constipation, Denies dysphagia, Denies heartburn, Denies diarrhea, Denies nausea, Denies odynophagia and Denies vomiting Denies difficulty urinating, Denies dysuria, Denies urinary frequency and Denies urinary urgency Musc Reports back pain (over the lower back - chronic), Denies arthralgias and Denies neck pain Skin/Breast Denies rash Neuro Denies dizziness, Denies headache(s) and Denies paresthesias Endo Denies fatigue and Denies palpitations Physical exam (Primary Care) Vital Signs: Last Vital Signs Pulse 74 01/15/25 13:48 BP 110/82 01/15/25 13:48 Pulse Ox 97 01/15/25 13:48 Oxygen Delivery Method Room Air 01/15/25 13:48 BMI result Body Mass Index 28.8 Tobacco/Smoking Status: Tobacco use Status Tobacco use date assessed 01/15/25 01/15/25 13:51 Patient Tobacco Use Status Never used Tobacco 01/15/25 13:46 e-Cigarette/Vaping Use Never Used 01/15/25 13:46 Thrive Assessment: Date of Thrive Assessment Date Thrive assessed 05/15/24 01/15/25 13:46 Currently or been in a relationship where the following occur: I choose not to answer Const General: no acute distress and alert HENMT Ears: TM's normal bilaterally and EAC's normal Throat: Yes posterior oropharynx normal and Yes tonsils normal (no TP congestion) Neck Neck: Yes supple and No lymphadenopathy Thyroid: Thyroid normal Resp Auscultation: clear to auscultation bilaterally, no rales and no wheezes Cardio Rate: regular rate Rhythm: regular rhythm Heart sounds: no murmurs GI Palpation (GI): Soft to palpation and nontender Auscultation: normal bowel sounds General: Yes no CVA tenderness Back/Spine/Pelvis Back: no CVA tenderness Thoracic/Lumbar Spine: lumbar spinal tenderness Skin Rashes: no rashes Extrem General: Yes no clubbing, cyanosis or edema Results Reviewed Results Reviewed: Laboratory Tests 01/08/25 01/08/25 13:55 14:03 WBC 8.7 Hgb 14.1 Hct 41.9 L Plt Count 169 Sodium 142 Potassium 4.8 Creatinine 1.54 H Estimated GFR 48 Fasting Glucose 83 Hemoglobin A1c % 5.7 Calcium 9.4 AST 49 H ALT 59 H Triglycerides 73 Cholesterol 157 LDL Cholesterol, Calc 97 HDL Cholesterol 46 25-OH Vitamin D Total 42.3 TSH 1.23 Ur Specific Hewitt 1.020 Urine Protein Negative Urine Glucose (UA) Negative Urine Blood Negative Urine Nitrite Negative Ur Leukocyte Esterase Trace H Coding Level of Care Code Est Pt Level 4 (28404) Diagnoses Pure hypercholesterolemia E78.00 Benign essential hypertension I10 Stage 3a chronic kidney disease N18.31 Chronic kidney disease stage 3 subtype: stage 3a (GFR 45-59) Impaired fasting glucose R73.01 Degeneration of intervertebral disc of lumbar region with discogenic back pain M51.360 Disc-related pain type: discogenic back pain only Migraine without status migrainosus, not intractable, unspecified migraine type G43.909 Migraine type: unspecified Status migrainosus presence: without status migrainosus Intractability: not intractable Bilateral carpal tunnel syndrome G56.03 Thyroid nodule E04.1 Benign prostatic hyperplasia with urinary hesitancy N40.1; R39.11 Insomnia, unspecified type G47.00 Insomnia type: unspecified Anxiety F41.9 Depression, unspecified depression type F32.A Depression Type: unspecified Overweight (BMI 25.0-29.9) E66.3 Assessment & Plan Assessment & Plan (1) Pure hypercholesterolemia: Code(s): E78.00 - Pure hypercholesterolemia, unspecified Category: Medical Plan: Results of his labs done last week reviewed and discussed with patient - his cho lesterol levels are mostly reasonably controlled on his current Rx Reinforced low cholesterol diet Continue Atorvastatin 10 mg QD Will recheck his labs and fasting lipids in 4 months for follow-up (2) Benign essential hypertension: Code(s): I10 - Essential (primary) hypertension Category: Medical Plan: Reinforced low sodium diet - goal is systolic BP of 120 mm or less Continue Amlodipine 2.5 mg QD He was on Lisinopril 10 mg QD but this was discontinued by nephrology due to his recently declining renal function (3) Chronic kidney disease (CKD), stage III (moderate): Code(s): N18.30 - Chronic kidney disease, stage 3 unspecified Category: Medical Qualifiers: Chronic kidney disease stage 3 subtype: stage 3a (GFR 45-59) Qualified Code(s): N18.31 - Chronic kidney disease, stage 3a Plan: His GFR and renal function appears stable on his recent labs Renal US done in December 2021 came out normal, with small right renal cysts - no follow up imaging studies required Patient is again encouraged to continue to increase his oral fluid intake consistently and to also cut back on his intake of Red Bull, which he states he drinks a lot of He is also reminded to avoid all NSAIDs at all cost Will continue to monitor his renal function closely Follow up with nephrology as scheduled (4) Impaired fasting glucose: Code(s): R73.01 - Impaired fasting glucose Category: Medical Plan: His FBS was normal at 83 mg/dl on his labs done last week HgbA1c was normal at 5.7%, and was also normal at 5.5% and 5.4% when previously checked Reinforced low calorie/low carb diet;exercise as tolerated (5) Lumbar degenerative disc disease: Code(s): M51.36 - Other intervertebral disc degeneration, lumbar region Category: Medical Qualifiers: Disc-related pain type: discogenic back pain only Qualified Code(s): M51.360 - Other intervertebral disc degeneration, lumbar region with discogenic back pain only Plan: S/P anterior lumbar interbody fusion of L5-S1 by Dr. Philip on 11/24/2020 Reinforced activity and weight lifting restrictions Continue Oxycodone 10 mg every 6 hours as needed for increased pain Patient is reminded/cautioned again to avoid all NSAIDs completely as they can adversely affect his renal function (6) Migraine: Code(s): G43.909 - Migraine, unspecified, not intractable, without status migrainosus Category: Medical Qualifiers: Migraine type: unspecified Status migrainosus presence: without status migrainosus Intractability: not intractable Qualified Code(s): G43.909 - Migraine, unspecified, not intractable, without status migrainosus Plan: Stable/controlled Continue Fioricet 50-325-40 mg 1 tablet 3 to 4 times a day as needed for headach es Patient used to take Topiramate 25 mg Q HS for migraine headache prophylaxis but appears to have stopped taking this a few years ago - states that his headaches have not really gotten any worse since he quit taking his Topiramate (7) Bilateral carpal tunnel syndrome: Code(s): G56.03 - Carpal tunnel syndrome, bilateral upper limbs Category: Medical Plan: S/P right wrist tendon repair by Dr. Moyer on 09/08/2020 for rupture of ligament of the right wrist and more recently, S/P proximal row carpectomy on 08/23/22 Follow up with orthopedics as scheduled or as needed (8) Thyroid nodule: Code(s): E04.1 - Nontoxic single thyroid nodule Category: Medical Plan: Stable - repeat thyroid US done in March 2021 came out normal At the time, we have decided to at least consider getting a follow up US in 3 years (03/2024) A repeat thyroid US was done back in May 2024, which came out normal - Normal thyroid. No nodules He was last seen by endocrinology (Dr. Antunez) in March 2018 and was recommended to repeat his TFTs every few months for follow up He was also advised that given the long-term stability of his thyroid nodule, he can just see his PCP for this and no longer needs to follow up with endocrinology on a regular basis unless something changes or something new occurs Patient is again reassured that his TFTs were normal on his recent labs (9) Benign prostatic hyperplasia with urinary hesitancy: Code(s): N40.1 - Benign prostatic hyperplasia with lower urinary tract symptoms; R39.11 - Hesitancy of micturition Category: Medical Plan: His PSA done a few months ago again came out normal Follow up with urology as scheduled (10) Insomnia: Code(s): G47.00 - Insomnia, unspecified Category: Medical Qualifiers: Insomnia type: unspecified Qualified Code(s): G47.00 - Insomnia, unspecified Plan: Sleep hygiene reinforced Continue Zolpidem 10 mg Q HS PRN (11) Anxiety: Code(s): F41.9 - Anxiety disorder, unspecified Category: Medical Plan: Continue Clonazepam 0.5 mg BID PRN (12) Depression: Code(s): F32.9 - Major depressive disorder, single episode, unspecified Category: Medical Qualifiers: Depression Type: unspecified Qualified Code(s): F32.A - Depression, unspecified Plan: Continue Quetiapine 200 mg Q HS, Sertraline 100 mg QD and Bupropion ER 300 mg QD Follow up with psychiatry as scheduled (13) Overweight (BMI 25.0-29.9): Code(s): E66.3 - Overweight Category: Medical Plan: Reinforced diet/exercise as tolerated/lose weight Plan Follow up in 4 months Orders: Orders Comprehensive [place]. Panel Fast 4 Months E78.00 - Pure hypercholesterolemia, unspecified Lipid Panel 4 Months E78.00 - Pure hypercholesterolemia, unspecified UA CC w/rflx Micro + Cult 4 Months R30.0 - Dysuria Vitamin D 25-OH Total 4 Months E55.9 - Vitamin D deficiency, unspecified Complete Blood Count Auto Diff 4 Months D64.9 - Anemia, unspecified TSH reflex Free T4 4 Months E78.00 - Pure hypercholesterolemia, unspecified
[2025-01-15 13:48] VITALS: BP 110/82; PULSE 74; O2SAT 97; BMI 28.8
--- OUTSIDE RECORDS SUMMARY | 2025-01-15 15:01 | XMS_ITS | Clinical Summary ---
Author Organization [facility], Address [address] [place] [address] Phone Care Team Providers Care Vice President Pharmacy Name Role Phone Unavailable Primary Care Provider [...] Sigmoidoscopy 2024 Influenza Vaccine (#1) 2024 Insurance [facility]
== END 2025-01-15 14:39 | disposition home or self-care (01) ==
LOC: HO.HMCH 13:43
PROVIDERS: PCP Internal Medicine; Visit Provider Internal Medicine
DX: E78.00 Pure hypercholesterolemia, unspecified (principal); I10 Essential (primary) hypertension; N18.31 Chronic kidney disease, stage 3a; R73.01 Impaired fasting glucose; M51.360 Other intervertebral disc degeneration, lumbar region with discogenic back pain only; G43.909 Migraine, unspecified, not intractable, without status migrainosus; G56.03 Carpal tunnel syndrome, bilateral upper limbs; E04.1 Nontoxic single thyroid nodule; N40.1 Benign prostatic hyperplasia with lower urinary tract symptoms; R39.11 Hesitancy of micturition; G47.00 Insomnia, unspecified; F41.9 Anxiety disorder, unspecified; F32.A Depression, unspecified; E66.3 Overweight

== ENCOUNTER → 2025-01-15 13:42 | Outpatient (BNVA) | payer OTHER, SELFPAY | PROVIDERS: PCP Internal Medicine; Visit Provider Internal Medicine | DX: I12.9 Hypertensive chronic kidney disease with stage 1 through stage 4 chronic kidney disease, or unspecified chronic kidney disease (principal); E78.00 Pure hypercholesterolemia, unspecified; N18.31 Chronic kidney disease, stage 3a; R73.01 Impaired fasting glucose; M51.360 Other intervertebral disc degeneration, lumbar region with discogenic back pain only; G43.909 Migraine, unspecified, not intractable, without status migrainosus; G56.03 Carpal tunnel syndrome, bilateral upper limbs; E04.1 Nontoxic single thyroid nodule; N40.1 Benign prostatic hyperplasia with lower urinary tract symptoms; R39.11 Hesitancy of micturition; G47.00 Insomnia, unspecified; F41.9 Anxiety disorder, unspecified; F32.A Depression, unspecified; E66.3 Overweight; R30.0 Dysuria; E55.9 Vitamin D deficiency, unspecified; D64.9 Anemia, unspecified; Z68.28 Body mass index [BMI] 28.0-28.9, adult | CPT/HCPCS: 99212 ==

== ENCOUNTER 2025-03-26 12:13 | Outpatient (REF) | payer OTHER, SELFPAY ==
[2025-03-26 13:34] LABS: Anion Gap 11 (12-20); Blood Urea Nitrogen 15 mg/dL (9-16); Calcium 9.9 mg/dL (8.4-10.2); Carbon Dioxide 31 mmol/L (22-29); Chloride 107 mmol/L (96-108); Estimated Glomerular Filt Rate 53; Potassium 4.6 mmol/L (3.3-5.1); Sodium 144 mmol/L (135-145)
== END 2025-03-26 12:14 | disposition home or self-care (01) ==
LOC: HO.LAB 12:13
PROVIDERS: PCP Internal Medicine; Visit Provider Internal Medicine Hypertension Specialist
DX: I10 Essential (primary) hypertension (principal)
CPT/HCPCS: 36415; 80048

== ENCOUNTER 2025-03-28 10:07 | Outpatient (AMB) | payer OTHER, SELFPAY ==
[2025-03-28 10:09] VITALS: BP 112/78; PULSE 80; O2SAT 96; BMI 29.1
--- NOTE | 2025-03-28 10:09 | HO.NEPHOV ---
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 Accompanied by: Self / Same As Patient Allergies gabapentin Allergy (Unknown, Verified 03/28/25 10:11) trouble swallowing, swelling Medication List - Last Reconciled 03/28/25 by Jose Lynch MD amlodipine 2.5 mg PO DAILY atorvastatin 10 mg PO DAILY bisacodyl (Dulcolax (bisacodyl)) 10 mg (2 x 5 mg) PO BEDTIME 2 days bupropion HCl XL 300 mg PO DAILY hxjalrwren-dcczuabmkbrst-vunx 50-325-40 mg 1 cap PO ONCE PRN cholecalciferol (vitamin D3) (Vitamin D3) 25 mcg PO DAILY clonazepam 0.25 mg PO BID cyclobenzaprine 10 mg PO TID PRN hydrocortisone 1% (Anti-Itch (hydrocortisone)) 1 appl topical TID PRN naloxone 4 mg/actuation (Narcan) 4 mg intranasal Q2M PRN nystatin 1 appl topical TID oxycodone 10 mg PO Q6H PRN 28 days peg 3350-electrolytes 236-22.74-6.74 -5.86 gram (Golytely) 240 mL PO Q10M 1 day quetiapine 200 mg PO BEDTIME sertraline 100 mg PO DAILY zolpidem 10 mg PO BEDTIME PRN HPI Comments Details: History of Present Illness The patient is a 49 year old male presenting for a six-month follow-up for management of hypertension, nephrolithiasis, and chronic kidney disease. He reports no issues with urination and denies swelling in his legs. His medications include amlodipine for blood pressure, sertraline, and zolpidem. His medical history is significant for a simple renal cyst, which was seen on a prior ultrasound and found to be benign, requiring no intervention. He drinks one to two Red Bull energy drinks per day, despite wanting to stop. For exercise, he reports walking and doing sit-ups. Results - Labs: Blood tests from the show stable kidney function. - Imaging: A past ultrasound showed a simple, benign kidney cyst. [facility] Medical History Status post proximal row carpectomy of wrist (~08/23/22) Chronic kidney disease (CKD), stage III (moderate) Rupture of ligament of wrist Renal insufficiency Vitamin D deficiency Overweight (BMI 25.0-29.9) Depression Anxiety Insomnia Benign prostatic hyperplasia Bilateral carpal tunnel syndrome Thyroid nodule Migraine Impaired fasting glucose Pure hypercholesterolemia Benign essential hypertension Lumbar degenerative disc disease Surgical History History of lumbosacral spine surgery (~11/24/20) History of surgery on right wrist (~02/07/20) S/P lumbar and lumbosacral fusion by anterior technique (~11/24/20) History of surgery Deficient knowledge of spinal cord stimulator S/P aneurysm repair History of knee replacement procedure of right knee History of hemorrhoidectomy History of bladder surgery Family History Father Medical history unknown Mother Diabetes Hypertension Maternal Uncle Colon cancer Social History Housing: House Alcohol intake: former Patient Tobacco Use Status: Never used Tobacco e-Cigarette/Vaping Use: Never Used Second Hand Smoke Exposure: Yes service: No Current occupational status: unemployed Cognitive needs: No Hearing needs: No Vision needs: No Physical Exam Exam Exam: Physical Exam General: Awake. Comfortable. HENT: Neck supple. Mucosa moist. Pulmonary: Lungs aeration equal. No rales. Cardiology: Heart S1-S2 heard. No gallop. Abdomen: Soft. Non tender. Bowel sounds normal. Neurologic: No involuntary movements. No myoclonus. Extremities: No edema. No rash. Vital Signs: Last Vital Signs Pulse 80 03/28/25 10:09 BP 112/78 03/28/25 10:09 Pulse Ox 96 03/28/25 10:09 Oxygen Delivery Method Room Air 03/28/25 10:09 BMI result Body Mass Index 29.1 Results Reviewed Results Reviewed: USG 2021 1. Right renal simple appearing cysts measuring up to 2.8 cm, not requiring follow-up. 2. No nephrolithiasis or hydronephrosis. Nephrology Results: Hgb, (14.0-18.0) 14.1 g/dl 01/08/25 WBC, (4.8-10.8) 8.7 X10*3/uL 01/08/25 Plt Count, (160-400) 169 X10*3/uL 01/08/25 Sodium, (135-145) 144 mmol/L 03/26/25 Potassium, (3.3-5.1) 4.6 mmol/L 03/26/25 Chloride, (96-108) 107 mmol/L 03/26/25 Carbon Dioxide, (22-29) 31 mmol/L H 03/26/25 BUN, (9-16) 15 mg/dL 03/26/25 Creatinine, (0.5-1.4) 1.41 mg/dL H 03/26/25 Calcium, (8.4-10.2) 9.9 mg/dL 03/26/25 Urine Protein, (Neg-Trace) Negative mg/dL 01/08/25 Renal US 12/31/21 Assessment & Plan Assessment & Plan (1) Benign essential hypertension: Code(s): I10 - Essential (primary) hypertension Category: Medical (2) Chronic kidney disease (CKD), stage III (moderate): Code(s): N18.30 - Chronic kidney disease, stage 3 unspecified Category: Medical Qualifiers: Chronic kidney disease stage 3 subtype: stage 3a (GFR 45-59) Qualified Code(s): N18.31 - Chronic kidney disease, stage 3a (3) Nephrolithiasis: Code(s): N20.0 - Calculus of kidney Category: Medical Plan Plan 1. Chronic Kidney Disease - The patient's kidney function is stable based on recent blood tests. - No changes will be made to the current management plan. Avoid Creatinine supplementation 24 hr urien shows Cr Cl 94 ml/mt with a serum Cr of 1.4 in 2023 - He will follow up in six months. 2. Hypertension - The patient's blood pressure is well-controlled at 112/78 mmHg on amlodipine. - He will continue his current medication regimen with no changes. 3. Nephrolithiasis - The patient was advised to ensure adequate water intake. - He will continue to be monitored. 4. Simple Renal Cyst - A previously identified simple cyst on ultrasound is benign and requires no intervention. - No further action is needed at this time. Orders: Orders Basic Metabolic Panel 6 Months N18.31 - Chronic kidney disease, stage 3a, N20.0 - Calculus of kidney Coding Level of Care Code Est Pt Level 4 (21615) Diagnoses Benign essential hypertension I10 Stage 3a chronic kidney disease N18.31 Chronic kidney disease stage 3 subtype: stage 3a (GFR 45-59) Nephrolithiasis N20.0
== END 2025-03-28 10:20 | disposition home or self-care (01) ==
LOC: HO.HKA 10:07
PROVIDERS: PCP Internal Medicine; Visit Provider Internal Medicine Hypertension Specialist
DX: I10 Essential (primary) hypertension (principal); N18.31 Chronic kidney disease, stage 3a; N20.0 Calculus of kidney
CPT/HCPCS: 99214

== ENCOUNTER → 2025-03-28 10:07 | Outpatient (BNVA) | payer OTHER, SELFPAY | PROVIDERS: PCP Internal Medicine; Visit Provider Internal Medicine Hypertension Specialist | DX: I12.9 Hypertensive chronic kidney disease with stage 1 through stage 4 chronic kidney disease, or unspecified chronic kidney disease (principal); N18.31 Chronic kidney disease, stage 3a; N20.0 Calculus of kidney; N28.1 Cyst of kidney, acquired; Z79.899 Other long term (current) drug therapy | CPT/HCPCS: 99212 ==